=== PATIENT | female | born 1980 | race Caucasian/White ===

== ENCOUNTER 2016-05-01 11:31 | Emergency (ER) | payer BC ==
[~2016-05-01] VITALS: Ht 152.4 cm; Wt 150.1 kg
[~2016-05-01 11:31] MED LIST: ALBUAER2 INH; BENZ100C84 PO; HYDR-5688 PO; METH4PAK4 PO; PRD20 PO
[2016-05-01 11:35] VITALS: TEMP 36.5; Ht 152.4 cm; Wt 150.1 kg
--- NOTE | 2016-05-01 13:03 | DIAGNOSTIC IMAGING REPORT ---
RIGHT ELBOW 3 VIEWS CLINICAL HISTORY: Fall one month ago. Right elbow pain. FINDINGS: 3 views of the right elbow are obtained. No prior studies are available for comparison at the time of dictation. The skeletal structures are well mineralized. No fracture is identified. The joint spaces of the elbow are well-maintained. No joint effusion is identified. The overlying soft tissues are within normal limits. IMPRESSION: Unremarkable radiographic assessment of the right elbow. Electronically signed by: Braulio Lynn M.D. 05/01/2016 1:02 PM Dictated Date/Time: 05/01/2016 1:01 PM
--- NOTE | 2016-05-01 13:05 | DIAGNOSTIC IMAGING REPORT ---
RIGHT SHOULDER MIN 2 VIEWS ROUTINE CLINICAL HISTORY: Right shoulder pain COMPARISON: None. DISCUSSION: No acute fractures or dislocations are visualized. There are degenerative changes within the AC joint. There is a small corticated ossicle adjacent to the superior lateral aspect of the clavicle. There are small corticated bony densities at the inferior margin of the glenohumeral joint. IMPRESSION: No acute fractures or dislocations identified. Electronically signed by: Steve Morel M.D. 05/01/2016 1:03 PM Dictated Date/Time: 05/01/2016 1:02 PM
[2016-05-01 14:02] VITALS: BP 166/101; PULSE 75; O2SAT 98
--- NOTE | 2016-05-01 15:36 | EMERGENCY ROOM VISIT NOTE ---
History First contact with patient: 11:59 Chief Complaint: FOOT PAIN Stated Complaint: PAIN IN BOTTOM OF LT FOOT, RT ARM & SHOULDER PAIN History of Present Illness The patient is a 36 year old female who presents to the Emergency Room with several complaints today. She complains primarily of left foot pain that started yesterday afternoon. The patient reports that she is on her feet all day long at work. She denies any known trauma or injury to the foot. She denies any prior history of chronic foot pain. She does report a history of flat feet. She denies any prior history of plantar fascitis. She currently denies any pain extending into the top of the foot, ankle or leg. She denies any paresthesias or numbness of the left foot or toes. The patient also complains of persistent right elbow and shoulder pain after falling approximately one month ago. Her pain is worsened with movement. She denies any pain extending into the neck or back. She also denies any paresthesias or numbness of the right upper extremity. The patient is right- hand-dominant. She rates this discomfort a 4 out of 10. The patient has not contacted her PCP regarding her current symptoms. Review of Systems 10 system review was performed and was negative except for pertinent positives and negatives as indicated in history of present illness Past Medical/Surgical History Medical Problems: (1) Abdominal wall hernia (2) Abscess of buttock, left (3) Abscess of buttock, left (4) Abscess packing removal (5) Achilles tendonitis, bilateral (6) Acute bronchitis (7) Acute bronchitis (8) Anxiety (9) Bronchitis (10) Bronchitis (11) CALCULUS OF URETER (12) Cough (13) Irritation of eye (14) Left buttock abscess (15) Left otitis externa (16) MORBID OBESITY (17) Otitis media, left (18) Skin problems (19) Strain of left Achilles tendon (20) Vaginal bleeding Surgical Problems: (1) Previous section Family History Diabetes mellitus FH: cancer Hypertension Kidney disease Kidney stones Social History Smoking Status: Current Every Day Smoker Alcohol Use: occasionally Drug Use: none Marital Status: Housing Status: lives with family Occupation Status: employed Current/Historical Medications Scheduled Venlafaxine Hcl (Effexor), 37.5 MG PO DAILY Allergies Coded Allergies: No Known Allergies (Verified , 05/01/16) Physical Exam Vital Signs Date Time Temp Pulse Resp B/P Pulse Ox O2 Delivery O2 Flow Rate FiO2 05/01/16 14:02 75 20 166/101 98 05/01/16 13:55 75 20 166/101 98 Room Air 05/01/16 11:57 147/92 05/01/16 11:35 36.5 79 18 168/117 95 Room Air Physical Exam CONSTITUTIONAL: Morbidly obese female, alert and oriented X 3 with positive affect. HEENT: Normocephalic, atraumatic. Pupils equal, round and reactive. NECK: Full active range of motion without discomfort. Negative lateral gaze test. RESPIRATORY: Clear to auscultation bilaterally with no wheezing, crackles, rhonchi or stridor. CARDIOVASCULAR: Regular rate and rhythm with no murmurs, rubs or gallops. MUSCULOSKELETAL: Examination of the right shoulder shows mild tenderness to the bicipital groove and anterior shoulder region. Gentle range of motion does not worsen her discomfort, and has full passive range of motion. Examination shows discomfort at the lateral elbow with pronation and supination of the forearm. No obvious joint effusion noted. She has full flexion and extension without pain. Distal pulses are intact. Examination of the left foot does not show any soft tissue edema or ecchymosis. She has tenderness to palpation through the lateral plantar fascia. She has no focal tenderness of the calcaneus or Achilles tendon, metatarsals, phalanges or dorsal midfoot. Pedal pulses are intact. Negative logroll bilaterally. Negative sitting straight leg raise bilaterally. INTEGUMENTARY: No rash or other significant dermatologic conditions noted. NEUROLOGIC: No focal neurologic deficits noted. Upper and lower extremities are sensory intact. Medical Decision & Procedures ER Provider Diagnostic Interpretation: My interpretation of right elbow and shoulder x-rays does not show any acute fractures or dislocations. Radiologist reports were also reviewed with concurrence. ED Course Patient history and physical exam were performed. Nurse's notes were reviewed. Initial vital signs were retaken, showing a blood pressure 149/92. X-rays of the right elbow and shoulder were normal. The patient was encouraged to follow-up with orthopedics for further reevaluation and management. The patient was advised that her left foot pain is likely secondary to plantar fascitis. A handout was provided. I did discuss the importance of deep ice massaging and stretching. The patient reports that she wears a flat soled shoe. She was encouraged to wear a shoe with a good arch support, such as a running shoe. Regarding her right elbow and shoulder pain, she was encouraged to intermittently apply ice as needed. Ibuprofen and Tylenol in alternating fashion as needed for additional pain relief. The patient was happy with plan of care, voiced understanding of all discharge instructions, and rated her pain a 4 out of 10 at the time of discharge. Medical Decision Impression Primary Impression: Plantar fasciitis, left Additional Impression: Muscle strain of right upper extremity Departure Information Dispostion Home / Self-Care Referrals Diane Perez D.O. (PCP) Forms HOME CARE DOCUMENTATION FORM, IMPORTANT VISIT INFORMATION Patient Instructions [facility], ED Plantar Fasciitis Problem Qualifiers Additional Impression: Muscle strain of right upper extremity Encounter type: initial encounter Qualified Codes: S46.911A - Strain of unspecified muscle, fascia and tendon at shoulder and upper arm level, right arm , initial encounter
[2016-05-29] MEDS ORDERED: EFF/375 PO (12:22)
== END 2016-05-01 14:06 | disposition home or self-care (01) ==
LOC: C.EDB 11:37 → C.EDD 14:06
DX: M72.2 Plantar fascial fibromatosis (principal); S46.911A Strain of unspecified muscle, fascia and tendon at shoulder and upper arm level, right arm, initial encounter; W19.XXXA Unspecified fall, initial encounter; Z87.442 Personal history of urinary calculi; E66.01 Morbid (severe) obesity due to excess calories; F17.210 Nicotine dependence, cigarettes, uncomplicated; Z79.899 Other long term (current) drug therapy

== ENCOUNTER 2016-05-29 17:26 | Emergency (ER) | payer BC ==
[~2016-05-29] VITALS: Ht 152.4 cm; Wt 149.7 kg
[~2016-05-29 17:26] MED LIST changes: -ALBUAER2 INH; -BENZ100C84 PO; +EFF/375 PO; -HYDR-5688 PO; -METH4PAK4 PO; -PRD20 PO
[2016-05-29 17:43] VITALS: TEMP 36.9; Ht 152.4 cm; Wt 149.7 kg
--- NOTE | 2016-05-29 18:47 | EMERGENCY ROOM VISIT NOTE ---
ED Visit Note First contact with patient: 17:45 CHIEF COMPLAINT: Sore throat HISTORY OF PRESENT ILLNESS: This 36-year-old female patient presents to the emergency department ambulatory complaining of a sore throat. The patient reports that she has had a mild cough, sneezing and a sore throat for the past 2 days. She rates her discomfort a 5/10. She states that the sore throat is worse with swallowing and eating. She denies any fevers. She does report that both of her children have been sick with colds recently. She has not taken any medications at home for her symptoms. She denies neck pain, headache, chest pain, abdominal pain, nausea or vomiting. REVIEW OF SYSTEMS: A review of systems was performed with positives and pertinent negatives listed in the history of present illness. All other systems were reviewed and are negative. ALLERGIES: No known drug allergies MEDICATIONS: Effexor PMH: No significant past medical history. SOCIAL HISTORY: The patient lives locally. She is a smoker. PHYSICAL EXAM: VITALS: Vitals are noted on the nurse's note and reviewed by myself. Vital signs stable. GENERAL: This is a 36-year-old female, in no acute distress, nondiaphoretic, well-developed well-nourished. SKIN: The skin was without rashes. EARS: External auditory canals clear, tympanic membranes pearly vallejo without erythema or effusion bilaterally. EYES: Pupils equal round and reactive to light and accommodation. Conjunctivae without injection, sclerae without icterus. NOSE: Patent, turbinates without inflammation or discharge. No sinus tenderness. MOUTH: Mucous membranes moist. Tonsils are surgically absent. Pharynx without erythema or exudate. NECK: Supple without nuchal rigidity. No lymphadenopathy. No meningismus. HEART: Regular rate and rhythm without murmurs gallops or rubs. LUNGS: Clear to auscultation bilaterally without wheezes, rales or rhonchi. NEURO: Patient was alert and oriented to person place and time. EMERGENCY DEPARTMENT COURSE: The patient was evaluated as above. She appears to have a viral illness. A rapid strep was performed and was negative. Conservative measures were discussed with the patient. She will follow-up with her primary care provider as needed. She verbalized understanding of my assessment and treatment plan and was discharged home in good condition. DIAGNOSIS: Viral illness Problem List Medical Problems: (1) Abdominal wall hernia Status: Chronic (2) Abscess of buttock, left Status: Resolved (3) Abscess of buttock, left Status: Resolved (4) Abscess packing removal Status: Resolved (5) Achilles tendonitis, bilateral Status: Resolved (6) Acute bronchitis Status: Resolved (7) Acute bronchitis Status: Resolved (8) Anxiety Status: Chronic (9) Bronchitis Status: Resolved (10) Bronchitis Status: Resolved (11) CALCULUS OF URETER Status: Resolved (12) Cough Status: Resolved (13) Irritation of eye Status: Resolved (14) Left buttock abscess Status: Resolved (15) Left otitis externa Status: Resolved (16) MORBID OBESITY Status: Chronic (17) Otitis media, left Status: Resolved (18) Skin problems Status: Resolved (19) Strain of left Achilles tendon Status: Resolved (20) Vaginal bleeding Status: Resolved Surgical Problems: (1) Previous section Status: Resolved Current/Historical Medications Scheduled Venlafaxine Hcl (Effexor), 37.5 MG PO DAILY Allergies Coded Allergies: No Known Allergies (Verified , 05/01/16) Vital Signs Date Time Temp Pulse Resp B/P Pulse Ox O2 Delivery O2 Flow Rate FiO2 05/29/16 18:53 64 18 152/97 96 Room Air 05/29/16 17:43 36.9 83 20 140/94 94 Room Air 05/29/16 17:42 96 Room Air Departure Information Impression Primary Impression: Acute pharyngitis Dispostion Home / Self-Care Condition GOOD Referrals Diane Perez D.O. (PCP) Patient Instructions My [facility] Additional Instructions You were seen in the emergency department for your sore throat. The results of your rapid strep screen were found to be negative. You will be contacted in 48- 72 hrs with the results of your pending strep culture. For pain and fever control, you can use the following [id number] medicines (if >12 yo): - Regular strength (325mg/tab) Tylenol (acetaminophen) 2 tabs every 4-6 hours as needed. Do not exceed 12 tablets in a 24 hour period. Avoid taking more than 4 grams (4000 mg) of Tylenol per day. This includes any other sources of acetaminophen you may take on a regular basis. - Regular strength (200 mg/tab) Advil (ibuprofen) 1-2 tabs every 4-6 hours as needed. Do not exceed a dose of 3200 mg per day. - For best results, alternate dosing of Tylenol and Advil. In addition to your prescribed medications, you can also use the following home remedies: - Warm salt-water gargles 3 times per day can soothe your throat and help to fight infection. - Warm tea with honey can soothe your throat. Return to the emergency department if your symptoms persist or worsen over the next 2-3 days despite treatment course outlined above. Return to the emergency department if you develop the following symptoms of: inability to swallow solids , liquids, or drool; excessive wheezing or inability to catch your breath; or intractable fever or pain. Follow up with your primary care provider in 2-3 days from today's emergency department visit. Problem Qualifiers Primary Impression: Acute pharyngitis Pharyngitis/tonsillitis etiology: unspecified etiology Qualified Codes: J02.9 - Acute pharyngitis, unspecified
[2016-05-29 18:53] VITALS: BP 152/97; PULSE 64; O2SAT 96
== END 2016-05-29 18:54 | disposition home or self-care (01) ==
LOC: C.EDB 17:27 → C.EDD 18:54
DX: J02.9 Acute pharyngitis, unspecified (principal); K43.9 Ventral hernia without obstruction or gangrene; F41.9 Anxiety disorder, unspecified; E66.01 Morbid (severe) obesity due to excess calories; Z79.899 Other long term (current) drug therapy; F17.210 Nicotine dependence, cigarettes, uncomplicated

== ENCOUNTER 2016-06-21 18:43 | Emergency (ER) | payer BC ==
[~2016-06-21] VITALS: Ht 152.4 cm; Wt 149.0 kg
[2016-06-21 18:47] VITALS: Ht 152.4 cm; Wt 149.0 kg
[2016-06-21] MEDS ORDERED: SEPTRA DS HOME PACK 1 EA VIAL PO ONE (19:15)
[2016-06-21] MEDS ORDERED: CEPHALEXIN 500MG HOME PACK 1 EA BTL PO ONE (19:15)
[2016-06-21] MEDS ORDERED: SULF800T23 PO (19:16)
[2016-06-21] MEDS ORDERED: CEPH500C PO (19:16)
[2016-06-21 19:24] VITALS: BP 161/93; PULSE 81; TEMP 37; O2SAT 93
--- NOTE | 2016-06-21 20:34 | EMERGENCY ROOM VISIT NOTE ---
History First contact with patient: 18:50 Chief Complaint: WOUND INFECTION Stated Complaint: INFECTED BOIL ON STOMACH Nursing Triage Summary: Pt c/o boil on mid abdomen, began , History of the same, takes antibiotics, it gets better, then it comes back. Draining. History of Present Illness The patient is a 36 year old female who presents to the Emergency Room with complaints of worsening pain and irritation to her abdomen began 4 days ago. The patient has had these symptoms several times over the past year, and typically takes antibiotics with improvement. The patient states that she will have intermittent drainage and discharge, but none at this time. She has not had fever or chills. No chest pain or shortness of breath. The patient is not diabetic by history. She rates her discomfort a 7/10. Review of Systems More than 10 systems were reviewed and otherwise negative with the exception of history of present illness. Past Medical/Surgical History Medical Problems: (1) Abdominal wall hernia (2) Abscess of buttock, left (3) Abscess of buttock, left (4) Abscess packing removal (5) Achilles tendonitis, bilateral (6) Acute bronchitis (7) Acute bronchitis (8) Anxiety (9) Bronchitis (10) Bronchitis (11) CALCULUS OF URETER (12) Cough (13) Irritation of eye (14) Left buttock abscess (15) Left otitis externa (16) MORBID OBESITY (17) Otitis media, left (18) Skin problems (19) Strain of left Achilles tendon (20) Vaginal bleeding Surgical Problems: (1) Previous section Family History Diabetes mellitus FH: cancer Hypertension Kidney disease Kidney stones Social History Smoking Status: Current Every Day Smoker Alcohol Use: occasionally Drug Use: none Marital Status: Housing Status: lives with family Occupation Status: employed Current/Historical Medications Scheduled Cephalexin Monohydrate (Keflex), 500 MG PO TID Sulfamethoxazole-Trimethoprim (Bactrim Ds 800MG/160MG), 1 TAB PO BID Venlafaxine Hcl (Effexor), 37.5 MG PO DAILY Allergies Coded Allergies: No Known Allergies (Verified , 05/01/16) Physical Exam Vital Signs Date Time Temp Pulse Resp B/P Pulse Ox O2 Delivery O2 Flow Rate FiO2 06/21/16 19:24 37.0 81 19 161/93 93 06/21/16 19:22 81 19 161/93 93 Room Air 06/21/16 18:47 37.0 83 19 180/98 93 Room Air Pain Rating (0-10): 6.0 Physical Exam VITALS: Vitals are noted on the nurse's note and reviewed by myself. Vital signs stable. GENERAL: Well-developed, well-nourished, morbidly obese white female, who is in no acute distress and resting comfortably. Patient is cooperative with the examination. HEAD: Normocephalic atraumatic. HEART: Regular rate and rhythm without murmurs gallops or rubs. LUNGS: Clear to auscultation bilaterally without wheezes, rales or rhonchi. No retractions or accessory muscle use. SKIN: Over the inferior aspect of the abdomen under the pannus is a central early skin ulceration with surrounding cellulitis. The ulceration measures approximately 2 x 1 cm in dimension with the surrounding cellulitis additional 3 cm circumferentially. There is no drainage or discharge at this time. No abscess appreciated. This ulceration appears to come into contact with her lower groin. No obvious fungal or yeast component is appreciated. Medical Decision & Procedures Medications Administered Medications (Trade) Dose Ordered Sig/Hussein Route Start Time Stop Time Status Last Admin Dose Admin Trimethoprim/ Sulfamethoxazole (Sulfameth/ Trimeth Ds 800/ 160MG Home Pack) 1 homepack UD ONCE PO 06/21/16 19:15 06/21/16 19:16 DC 06/21/16 19:15 1 HOMEPACK Cephalexin Monohydrate (Keflex 500MG Home Pack) 1 homepack NOW ONCE PO 06/21/16 19:15 06/21/16 19:16 DC 06/21/16 19:15 1 HOMEPACK ED Course Physical exam and history were performed. Nursing notes and EMR were reviewed. Patient appears to have an early skin ulceration with surrounding cellulitis on the lower aspect of her pannus. This will do better with antibiotics, and the patient was started on Bactrim and Keflex here in the department. Considering the patient has had these symptoms off and on for several months, if not the past year, I will refer her to the wound care clinic for further management. She is morbidly obese, and although she states she is not diabetic or have concern this may be contributing to her symptoms. Overall the patient was pleased with this plan and voiced understanding. She rated her discomfort a 6/ 10 at the time of departure. The chart was completed utilizing Dragon Speech Voice Recognition Software. Grammatical errors, random word insertions, pronoun errors, and incomplete sentences are an occasional consequence of this system due to software limitations, ambient noise, and hardware issues. Any formal questions or concerns about the content, text, or information contained within the body of this dictation should be directly addressed to the provider for clarification. . Medical Decision Differential diagnosis: Etiologies such as cellulitis, abscess, MRSA infection, DVT, necrotizing fasciitis, dermatitis, drug eruption, as well as others were entertained.. Impression Primary Impression: Skin ulceration Additional Impression: Cellulitis Departure Information Dispostion Home / Self-Care Condition GOOD Prescriptions Cephalexin Monohydrate (Keflex) 500 Mg Cap 500 MG PO TID for 9 Days, #27 CAP Prov: Mg Lorenzana PA-C 06/21/16 Sulfamethoxazole-Trimethoprim (Bactrim Ds 800MG/160MG) 1 Tab Tab 1 TAB PO BID for 9 Days, #18 TAB Prov: Mg Lorenzana PA-C 06/21/16 Forms HOME CARE DOCUMENTATION FORM, IMPORTANT VISIT INFORMATION Patient Instructions My [facility] Additional Instructions You were seen and evaluated today on an emergency basis only. This is not a substitute for, or an effort to provide, complete comprehensive medical care. It is not possible to recognize and treat all injuries or illnesses in a single emergency department visit. For this reason it is recommended that you followup with [facility] wound care clinic for ongoing care and evaluation. You appeared to have a pressure ulceration with surrounding cellulitis. Trimethoprim-Sulfamethoxazole(Bactrim DS): Take one pill twice daily for 10 days for your skin infection. All antibiotics can cause diarrhea. If this occurs and you feel worse or it does not resolve in 1-2 days follow up with your doctor or return to the Emergency Department as this could be signs of serious underlying problems. Any medication can cause an allergic reaction, stop the pills immediately and return to the ER for rash, hives, breathing difficulties, or swelling. Cephalexin(Keflex) 500mg: Take one pill 3 times daily for 10 days for your skin infection. All antibiotics can cause diarrhea. If this occurs and you feel worse or it does not resolve in 1-2 days follow up with your doctor or return to the Emergency Department as this could be signs of serious underlying problems. Any medication can cause an allergic reaction, stop the pills immediately and return to the ER for rash, hives, breathing difficulties, or swelling. You are welcome to return to the emergency department anytime with new, worsening, or concerning symptoms. Problem Qualifiers
== END 2016-06-21 19:25 | disposition home or self-care (01) ==
LOC: C.EDB 18:45 → C.EDD 19:25
DX: L98.499 Non-pressure chronic ulcer of skin of other sites with unspecified severity (principal); L03.311 Cellulitis of abdominal wall; E66.01 Morbid (severe) obesity due to excess calories; Z68.44 Body mass index [BMI] 60.0-69.9, adult; F41.9 Anxiety disorder, unspecified; F17.200 Nicotine dependence, unspecified, uncomplicated; Z79.899 Other long term (current) drug therapy; Z83.3 Family history of diabetes mellitus; Z82.49 Family history of ischemic heart disease and other diseases of the circulatory system; Z84.1 Family history of disorders of kidney and ureter

== ENCOUNTER 2016-09-30 13:20 | Emergency (ER) | payer BC ==
[~2016-09-30] VITALS: Ht 152.4 cm; Wt 150.0 kg
[2016-09-30 13:24] VITALS: TEMP 36.7; Ht 152.4 cm; Wt 150.0 kg
--- NOTE | 2016-09-30 13:59 | EMERGENCY ROOM VISIT NOTE ---
History Report prepared by Miguel Ángel: Fan Bee Under the Supervision of: Dr. Karina Reyes D.O. First contact with patient: 13:34 Chief Complaint: CARDIAC ASSESSMENT Stated Complaint: CHEST PAIN, NUMBNESS IN LEFT ARM AND CHEST Nursing Triage Summary: pt to the ED with chest and back pain mostly when she breathes with numbness across chest and left arm and "I kept falling over" yesterday feeling "off balance" has a hx of HTN that is recent History of Present Illness The patient is a 36 year old female who presents to the Emergency Room with complaints of constant chest pain since yesterday. The pain is worse with breathing and is also felt in her back / shoulder area. Today the patient started to experience numbness radiating down the left arm. The left arm also feels heavy. The patient notes that the chest and epigastric area is sore when she pushes on it. The patient was feeling very off balance yesterday. She has had intermittent vomiting for the past month. The patient denies cough or cold symptoms, bowel problems, urinary symptoms, or changes in her menstrual cycle. She denies recent travel or strenuous activity. She only takes Effexor, and has not changed the dosage recently. The patient denies any medical problems. She is a smoker. The patient has a family history of heart disease with unknown age of onset. Source of History: patient Onset: yesterday Position: chest Timing: constant Modifying Factors (Worsening): breathing Associated Symptoms: + vomiting, + back pain, + numbness, No cough, No urinary symptoms Review of Systems See HPI for pertinent positives & negatives. A total of 10 systems reviewed and were otherwise negative. Past Medical & Surgical Medical Problems: (1) Abdominal wall hernia (2) Abscess of buttock, left (3) Abscess of buttock, left (4) Abscess packing removal (5) Achilles tendonitis, bilateral (6) Acute bronchitis (7) Acute bronchitis (8) Anxiety (9) Bronchitis (10) Bronchitis (11) CALCULUS OF URETER (12) Cough (13) Irritation of eye (14) Left buttock abscess (15) Left otitis externa (16) MORBID OBESITY (17) Otitis media, left (18) Skin problems (19) Strain of left Achilles tendon (20) Vaginal bleeding Surgical Problems: (1) Previous section Family History Diabetes mellitus FH: cancer Hypertension Kidney disease Kidney stones Social History Smoking Status: Current Every Day Smoker Alcohol Use: occasionally Drug Use: none Marital Status: Housing Status: lives with family Occupation Status: employed Current/Historical Medications Scheduled Venlafaxine Hcl (Effexor), 37.5 MG PO DAILY Allergies Coded Allergies: No Known Allergies (Verified , 09/30/16) Physical Exam Vital Signs Date Time Temp Pulse Resp B/P (MAP) Pulse Ox O2 Delivery O2 Flow Rate FiO2 09/30/16 19:15 76 18 141/76 98 09/30/16 17:19 65 20 143/72 96 Room Air 09/30/16 16:13 63 22 133/83 95 Room Air 09/30/16 13:56 74 09/30/16 13:24 36.7 80 16 191/115 95 Room Air Physical Exam GENERAL: alert, well appearing, well nourished, no distress, non-toxic EYE EXAM: normal conjunctiva. OROPHARYNX: no exudate, no erythema, lips, buccal mucosa, and tongue normal and mucous membranes are moist NECK: supple, no nuchal rigidity, no adenopathy, non-tender LUNGS: Clear to auscultation. Normal chest wall mechanics HEART: no murmurs, S1 normal and S2 normal CHEST: Mildly reproducible let costal margin tenderness. ABDOMEN: morbidly obese, soft, non-tender. BACK: Back is symmetrical on inspection and there is no deformity, no midline tenderness, no CVA tenderness. SKIN: no rashes and no bruising UPPER EXTREMITIES: upper extremities are grossly normal. LOWER EXTREMITIES: No pitting edema. NEURO EXAM: Normal sensorium, cranial nerves II-XII grossly intact, normal speech, no gross weakness of arms, no gross weakness of legs. Gross sensation intact. Medical Decision & Procedures ER Provider Diagnostic Interpretation: Radiology results have been interpreted by the radiologist and reviewed by me. CHEST 2 VIEWS ROUTINE CLINICAL HISTORY: chest pain dyspnea COMPARISON STUDY: 12/28/2015 FINDINGS: The bones soft tissues and hemidiaphragms are normal. The cardiomediastinal silhouette is normal. The lungs are clear. The pulmonary vasculature is normal. IMPRESSION: Negative chest. Electronically signed by: Jacoby Tejeda M.D. 09/30/2016 3:10 PM Dictated Date/Time: 09/30/2016 3:[address] ANGIOGRAM OF THE CHEST CLINICAL HISTORY: Atypical chest pain. Elevated d-dimer. Left arm numbness. COMPARISON STUDY: 12/28/2015 TECHNIQUE: Following the IV administration of 87 mL of Optiray-320, CT angiogram of the thorax was performed from the thoracic inlet to the lung bases utilizing the pulmonary embolus protocol. Images are reviewed in the axial, sagittal, and coronal planes. IV contrast was administered without complication. MIP imaging was performed. CT DOSE: 658.17 mGy.cm FINDINGS: There is hepatic steatosis. No pathologically enlarged axillary mediastinal or hilar lymph nodes were visualized. There was no evidence of thoracic aortic dilatation. Pulmonary arterial opacification is somewhat limited due to the patient's large body habitus. No central emboli are visualized. No pleural effusions are visualized. There was no evidence of focal pulmonary consolidation. IMPRESSION: 1. Technically limited study secondary to the patient's large body habitus 2. No evidence of central pulmonary emboli 3. No evidence of focal pulmonary consolidation Electronically signed by: Steve Morel M.D. 09/30/2016 3:30 PM Dictated Date/Time: 09/30/2016 3:27 PM Laboratory Results 09/30/16 14:15 Red Blood Count 4.47, Mean Corpuscular Volume 90.4, Mean Corpuscular Hemoglobin 30.4, Mean Corpuscular Hemoglobin Concent 33.7, Mean Platelet Volume 11.2, Neutrophils (%) (Auto) 63.0, Lymphocytes (%) (Auto) 29.6, Monocytes (%) (Auto) 5.0, Eosinophils (%) (Auto) 1.6, Basophils (%) (Auto) 0.4, Neutrophils # (Auto) 7.35, Lymphocytes # (Auto) 3.46, Monocytes # (Auto) 0.58, Eosinophils # (Auto) 0.19, Basophils # (Auto) 0.05 09/30/16 14:15 Test 09/30/16 14:15 09/30/16 18:05 White Blood Count 11.68 K/uL (4.8-10.8) Red Blood Count 4.47 M/uL (4.2-5.4) Hemoglobin 13.6 g/dL (12.0-16.0) Hematocrit 40.4 % (37-47) Mean Corpuscular Volume 90.4 fL (80-100) Mean Corpuscular Hemoglobin 30.4 pg (25-34) Mean Corpuscular Hemoglobin Concent 33.7 g/dl (32-36) Platelet Count 193 K/uL (130-400) Mean Platelet Volume 11.2 fL (7.4-10.4) Neutrophils (%) (Auto) 63.0 % Lymphocytes (%) (Auto) 29.6 % Monocytes (%) (Auto) 5.0 % Eosinophils (%) (Auto) 1.6 % Basophils (%) (Auto) 0.4 % Neutrophils # (Auto) 7.35 K/uL (1.4-6.5) Lymphocytes # (Auto) 3.46 K/uL (1.2-3.4) Monocytes # (Auto) 0.58 K/uL (0.11-0.59) Eosinophils # (Auto) 0.19 K/uL (0-0.5) Basophils # (Auto) 0.05 K/uL (0-0.2) RDW Standard Deviation 41.9 fL (36.4-46.3) RDW Coefficient of Variation 12.6 % (11.5-14.5) Immature Granulocyte % (Auto) 0.4 % Immature Granulocyte # (Auto) 0.05 K/uL (0.00-0.02) D-Dimer 650 ug/L FEU (0-500) Anion Gap 8.0 mmol/L (3-11) Est Creatinine Clear Calc Drug Dose 140.5 ml/min Estimated GFR () 115.9 Estimated GFR (Non- 100.0 BUN/Creatinine Ratio 15.8 (10-20) Calcium Level 8.6 mg/dl (8.5-10.1) Magnesium Level 1.8 mg/dl (1.8-2.4) Total Bilirubin 0.2 mg/dl (0.2-1) Aspartate Amino Transf (AST/SGOT) 26 U/L (15-37) Alanine Aminotransferase (ALT/SGPT) 39 U/L (12-78) Alkaline Phosphatase 105 U/L (45-117) Total Protein 6.9 gm/dl (6.4-8.2) Albumin 2.9 gm/dl (3.4-5.0) Globulin 4.0 gm/dl (2.5-4.0) Albumin/Globulin Ratio 0.7 (0.9-2) Thyroid Stimulating Hormone (TSH) 2.030 uIu/ml (0.300-4.500) Troponin I < 0.015 ng/ml (0-0.045) Laboratory results per my review. Medications Administered Medications (Trade) Dose Ordered Sig/Hussein Route Start Time Stop Time Status Last Admin Dose Admin Al Hydroxide/Mg Hydroxide (Maalox Susp) 30 ml NOW STAT PO 09/30/16 15:55 09/30/16 15:56 DC 09/30/16 16:11 30 ML Ketorolac Tromethamine (Toradol Inj) 30 mg NOW STAT IV 09/30/16 15:55 09/30/16 15:56 DC 09/30/16 16:11 30 MG Lorazepam (Ativan Inj) 0.5 mg NOW STAT IV 09/30/16 16:41 09/30/16 16:42 DC 09/30/16 17:19 0.5 MG Famotidine (Pepcid Tab) 20 mg NOW ONCE PO 09/30/16 19:00 09/30/16 19:01 DC 09/30/16 19:14 20 MG Acetaminophen (Tylenol Tab) 1,000 mg NOW STAT PO 09/30/16 18:54 09/30/16 18:55 DC 09/30/16 19:14 1,000 MG ECG Indication: chest pain Rate (beats per minute): 67 Rhythm: normal sinus Findings: no acute ischemic change, no ectopy, other (normal axis, normal intervals) ED Course 1350: The patient was evaluated in room B9. A complete history and physical exam was performed. 1555: Toradol 30 mg IV, Maalox 30 ml PO. 1630: The patient is still having pain but feels somewhat better. Updated her on the results. 1641: Ativan 0.5 mg IV. 1840: Reassessed the patient. Discussed the workup. 1854: Tylenol 1000 mg PO. 1900: Pepcid 20 mg PO. Medical Decision Differential diagnoses includes but is not limited to acute coronary syndrome, myocardial infarction, pericarditis, pulmonary embolus, aortic dissection, pneumonia, pneumothorax, musculoskeletal, shingles, esophageal perf, gerd, tamponade, effusion. Medication Reconciliation: I attest that I have personally reviewed the patient' s current medication list. Blood pressure screening: Patient was found to have an elevated blood pressure and was referred to their primary doctor for recheck and further treatment. HEART score 1 Unclear etiology of pain, no acute lab/imaging abnormalities noted. Pt well appearing here despite complaints. VS stable. Discussed f/u with pt, sx to watch/return for, she verbalized understanding and was agreeable with plan. First blood pressure likely an error due to body habitus and appropriate cuff size. Impression Primary Impression: Chest pain Additional Impression: Obesity Scribe Attestation The scribe's documentation has been prepared under my direction and personally reviewed by me in its entirety. I confirm that the note above accurately reflects all work, treatment, procedures, and medical decision making performed by me. Departure Information Dispostion Home / Self-Care Referrals Diane Perez D.O. (PCP) Forms IMPORTANT VISIT INFORMATION, Work Instructions Patient Instructions My [facility] Additional Instructions Please: Follow up with her family doctor. Please avoid any heavy lifting or strenuous activity until you're feeling better. If you have any worsening pain , trouble breathing, dizziness, fevers, vomiting, or you have any other new or concerning symptoms, please return the emergency room. Problem Qualifiers Primary Impression: Chest pain Chest pain type: unspecified Qualified Codes: R07.9 - Chest pain, unspecified Additional Impression: Obesity Obesity type: due to excess calories Obesity severity: morbid Qualified Codes: E66.01 - Morbid (severe) obesity due to excess calories
[2016-09-30 14:24] LABS: BASO % 0.4 %; BASO ABS # 0.05 K/uL (0-0.2); COMPLETE YES; EOS % 1.6 %; HEMATOCRIT 40.4 % (37-47); IG% 0.4 %; LYMPH % 29.6 %; LYMPH ABS # 3.46 K/uL (1.2-3.4); MEAN CELL VOLUME 90.4 fL (80-100); MEAN CORPUSCULAR HEMOGLOBIN 30.4 pg (25-34); MEAN CORPUSCULAR HGB CONC 33.7 g/dl (32-36); MEAN PLATELET VOLUME 11.2 fL (7.4-10.4); PLATELET COUNT 193 K/uL (130-400); RED BLOOD COUNT 4.47 M/uL (4.2-5.4); WHITE BLOOD COUNT 11.68 K/uL (4.8-10.8)
[2016-09-30 14:42] LABS: ALT/SGPT 39 U/L (12-78); AST/SGOT 26 U/L (15-37); BLOOD UREA NITROGEN 12 mg/dl (7-18); BUN/CREATININE RATIO 15.8 (10-20); CALCIUM 8.6 mg/dl (8.5-10.1); CARBON DIOXIDE 27 mmol/L (21-32); CHLORIDE 105 mmol/L (98-107); CREATININE 0.77 mg/dl (0.60-1.20); GLUCOSE 164 mg/dl (70-99); MAGNESIUM 1.8 mg/dl (1.8-2.4); SODIUM 140 mmol/L (136-145)
[2016-09-30 14:52] LABS: ALB/GLOB RATIO 0.7 (0.9-2); ALKALINE PHOSPHATASE 105 U/L (45-117)
[2016-09-30] MEDS ORDERED: OPTIRAY 320 IV PRN (15:00)
--- NOTE | 2016-09-30 15:11 | DIAGNOSTIC IMAGING REPORT ---
CHEST 2 VIEWS ROUTINE CLINICAL HISTORY: chest pain dyspnea COMPARISON STUDY: 12/28/2015 FINDINGS: The bones soft tissues and hemidiaphragms are normal. The cardiomediastinal silhouette is normal. The lungs are clear. The pulmonary vasculature is normal. IMPRESSION: Negative chest. Electronically signed by: Jacoby Tejeda M.D. 09/30/2016 3:10 PM Dictated Date/Time: 09/30/2016 3:09 PM
--- NOTE | 2016-09-30 15:32 | DIAGNOSTIC IMAGING REPORT ---
CT ANGIOGRAM OF THE CHEST CLINICAL HISTORY: Atypical chest pain. Elevated d-dimer. Left arm numbness. COMPARISON STUDY: 12/28/2015 TECHNIQUE: Following the IV administration of 87 mL of Optiray-320, CT angiogram of the thorax was performed from the thoracic inlet to the lung bases utilizing the pulmonary embolus protocol. Images are reviewed in the axial, sagittal, and coronal planes. IV contrast was administered without complication. MIP imaging was performed. CT DOSE: 658.17 mGy.cm FINDINGS: There is hepatic steatosis. No pathologically enlarged axillary mediastinal or hilar lymph nodes were visualized. There was no evidence of thoracic aortic dilatation. Pulmonary arterial opacification is somewhat limited due to the patient's large body habitus. No central emboli are visualized. No pleural effusions are visualized. There was no evidence of focal pulmonary consolidation. IMPRESSION: 1. Technically limited study secondary to the patient's large body habitus 2. No evidence of central pulmonary emboli 3. No evidence of focal pulmonary consolidation Electronically signed by: Steve Morel M.D. 09/30/2016 3:30 PM Dictated Date/Time: 09/30/2016 3:27 PM
[2016-09-30] MEDS ORDERED: ALUMINUM/MAGNESIUM SUSP 30 ML UDC PO STA (15:55)
[2016-09-30] MEDS ORDERED: KETOROLAC TROMETHAMINE 30 MG/ML VIAL IV STA (15:55)
[2016-09-30] MEDS ORDERED: LORAZEPAM 2 MG/ML 1 ML VIAL IV STA (16:41)
[2016-09-30] MEDS ORDERED: ACETAMINOPHEN 500 MG TAB PO STA (18:54)
[2016-09-30] MEDS ORDERED: FAMOTIDINE 20 MG TAB PO ONE (19:00)
[2016-09-30 19:15] VITALS: BP 141/76; PULSE 76; O2SAT 98
[2017-02-18] MEDS ORDERED: GLC500 PO (12:30)
== END 2016-09-30 19:16 | disposition home or self-care (01) ==
LOC: C.EDB 13:22
DX: R07.9 Chest pain, unspecified (principal); I10 Essential (primary) hypertension; R20.0 Anesthesia of skin; F17.210 Nicotine dependence, cigarettes, uncomplicated; Z82.49 Family history of ischemic heart disease and other diseases of the circulatory system; E66.01 Morbid (severe) obesity due to excess calories

== ENCOUNTER 2016-12-09 17:11 | Emergency (ER) | payer BC ==
[~2016-12-09] VITALS: Ht 152.4 cm; Wt 149.0 kg
[2016-12-09 17:22] VITALS: BP 146/101; PULSE 86; TEMP 36.5; O2SAT 98; Ht 152.4 cm; Wt 149.0 kg
[2016-12-09] MEDS ORDERED: CYCL5TAB PO (17:35)
[2016-12-09] MEDS ORDERED: HYDR-5688 PO (17:35)
--- NOTE | 2016-12-09 17:37 | EMERGENCY ROOM VISIT NOTE ---
History First contact with patient: 17:25 Chief Complaint: BACK PAIN Stated Complaint: PAIN RIGHT SIDE OF BACK History of Present Illness The patient is a 36 year old female who presents to the Emergency Room via private vehicle accompanied by male with complaints of "back pain". 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 She states that she reached forward with her right arm to retract the seatbelt she felt a pulling sensation just below her right shoulder blade. She rates the current pain as a 6/10. She denies any shortness of breath, chest pain, numbness or tingling in the extremities. She hasn't taken any for pain thus far. Review of Systems A complete 10-point Review of Systems was discussed with the patient, with pertinent positives and negatives listed in the History of Present Illness. All remaining Review of Systems questions can be considered negative unless otherwise specified. Past Medical/Surgical History Medical Problems: (1) Abdominal wall hernia (2) Abscess of buttock, left (3) Abscess of buttock, left (4) Abscess packing removal (5) Achilles tendonitis, bilateral (6) Acute bronchitis (7) Acute bronchitis (8) Anxiety (9) Bronchitis (10) Bronchitis (11) CALCULUS OF URETER (12) Cough (13) Irritation of eye (14) Left buttock abscess (15) Left otitis externa (16) MORBID OBESITY (17) Otitis media, left (18) Skin problems (19) Strain of left Achilles tendon (20) Vaginal bleeding Surgical Problems: (1) Previous section Family History Diabetes mellitus FH: cancer Hypertension Kidney disease Kidney stones Social History Smoking Status: Current Every Day Smoker Alcohol Use: occasionally Drug Use: none Marital Status: Housing Status: lives with family Occupation Status: employed Current/Historical Medications Scheduled Venlafaxine Hcl (Venlafaxine Extended Rel), 37.5 MG PO DAILY Scheduled PRN Cyclobenzaprine Hcl (Flexeril), 1 TAB PO TID PRN for Muscle Spasms Hydrocodone/Acetaminophen 5MG/325MG ([place] 5MG/325MG), 1-2 TABLET PO Q6 PRN for Pain Physical Exam Vital Signs Date Time Temp Pulse Resp B/P (MAP) Pulse Ox O2 Delivery O2 Flow Rate FiO2 12/09/16 17:22 36.5 86 16 146/101 98 Room Air Physical Exam VITAL SIGNS - Vital signs and nursing notes were reviewed. Stable. GENERAL -36-year-old female appearing her stated age who is in no acute distress. Communicates well with provider and answers questions appropriately. SKIN - Without rashes. No petechial rashes. HEAD - NC/AT. NECK - Neck with FROM. Supple to palpation. no lymphadenopathy noted. No nuchal rigidity. LUNGS - Chest wall symmetric without accessory muscle use, intercostals retractions, or central cyanosis. Normal vesicular breath sounds CTA B/L. No wheezes, rales, or rhonchi appreciated. CARDIAC - RRR with S1/S2. No murmur, rubs, or gallops appreciated. ABDOMEN - Abdominal contour without pulsations or visible masses. BS normoactive all four quadrants. No tenderness, palpable masses, hepatosplenomegaly, or ascites noted. EXTREMITIES - No clubbing or peripheral cyanosis. No pretibial edema present. +5 /5 strength noted in UE/LE bilaterally. There is tenderness along the distribution of the inferior trapezius muscle inferior to that of the right scapular region. NEUROLOGIC - Cranial nerves II through XII grossly intact. Sensory intact to light touch throughout. PSYCH - Pt is very pleasant and interacts well with examiner. Medical Decision & Procedures Medical Decision Patient was seen and evaluated as above. She presents to us today with reproducible right inferior scapular tenderness. There is no bony tenderness. The tenderness is that over the inferior trapezius muscle. No evidence of need for x-ray. There is been no trauma to the area. Her history and physical examination are consistent with that of a muscle strain. She'll be treated conservatively with Flexeril and [place]. She is to return if worsening. She is to follow up with her workman's compensation individual. She was educated upon worrisome symptoms which to return, had questions or discharge, and was discharged home in good condition. In evaluation treatment this patient following differential diagnoses entertained: Trapezius muscle strain, fracture, dislocation, among others. [place] Drug Monitoring Program Search Results: patient reviewed within database, no issues identified Impression Primary Impression: Strain of right trapezius muscle Departure Information Dispostion Home / Self-Care Condition GOOD Prescriptions Cyclobenzaprine Hcl (FLEXERIL) 5 Mg Tab 1 TAB PO TID Y for Muscle Spasms for 10 Days, #30 TAB Prov: Surya PimentelFERNANDO 12/09/16 Hydrocodone/Acetaminophen 5MG/325MG (Racine 5MG/325MG) Tab 1-2 TABLET PO Q6 Y for Pain, #15 TAB For Initial Treatment Prov: Surya Pimentel PA-C 12/09/16 Referrals Diane Perez D.O. (PCP) Patient Instructions My [facility] Additional Instructions You have been treated in the Emergency Department for Back Pain. You have been prescribed NORCO to be used for pain control. This is a narcotic medication. You cannot drive or consume alcohol while on this medicine. This medicine should only be used for pain that cannot be controlled with over-the- counter pain medicines. NOT WITH TYLENOL IT ALREADY CONTAINS IT You have been prescribed Flexeril (cyclobenzaprine) 1 tabs orally, three times per day. Do NOT exceed 30 mg (6 tabs) per day. Take your first dose at bedtime as it can make you drowsy. Always take all medications as prescribed. For pain control, you can use the following [id number] medicines: - Regular strength (200 mg/tab) Advil (ibuprofen) 1-2 tabs every 4-6 hours as needed. Do not exceed a dose of 3200 mg per day. If this is an acute injury, ice can be applied to the area of pain for the first 3 days to help decrease pain and inflammation. After the first 3 days, a heating pad can be used over the area for continued soothing relief. You should schedule a follow-up appointment in 2-3 days with your Primary Care Provider for further evaluation and treatment of your back pain. (Please call your employer to discuss approved follow up physician) Return to the Emergency Department if your current symptoms worsen despite treatment course outlined above, or if you develop any of the following symptoms : intractable pain despite aforementioned treatment course, loss of control of your bowel or bladder, numbness or tingling in your groin, or development of a fever. Please return to the emergency department with new/concerning symptoms.
[2016-12-09] MEDS ORDERED: VENL37.593 PO (17:44)
== END 2016-12-09 17:48 | disposition home or self-care (01) ==
LOC: C.EDB 17:13 → C.EDD 17:48
DX: S46.911A Strain of unspecified muscle, fascia and tendon at shoulder and upper arm level, right arm, initial encounter (principal); X50.1XXA Overexertion from prolonged static or awkward postures, initial encounter; Y92.89 Other specified places as the place of occurrence of the external cause; Y99.0 Civilian activity done for income or pay; F41.9 Anxiety disorder, unspecified; Z87.442 Personal history of urinary calculi; E66.01 Morbid (severe) obesity due to excess calories; Z83.3 Family history of diabetes mellitus; Z80.9 Family history of malignant neoplasm, unspecified; Z82.49 Family history of ischemic heart disease and other diseases of the circulatory system; Z84.1 Family history of disorders of kidney and ureter; F17.210 Nicotine dependence, cigarettes, uncomplicated; Z79.899 Other long term (current) drug therapy

== ENCOUNTER 2016-12-28 07:08 | Emergency (ER) | payer BC ==
[~2016-12-28] VITALS: Ht 152.4 cm; Wt 146.0 kg
[~2016-12-28 07:08] MED LIST changes: -EFF/375 PO; +HYDR-5688 PO; +VENL37.593 PO
[2016-12-28 07:11] VITALS: TEMP 36.4; Ht 152.4 cm; Wt 146.0 kg
[2016-12-28] MEDS ORDERED: ALBUT/IPRATROP 3MG/0.5MG NEB 3 ML VIAL INH STA (07:28)
[2016-12-28] MEDS ORDERED: METHYLPREDNISOLONE 125 MG VIAL IV STA (07:28)
[2016-12-28] MEDS ORDERED: SODIUM CHLORIDE 0.9% 1000ML 1,000 ML IV STA ×2 (07:28)
[2016-12-28 07:44] VITALS: PULSE 70; O2SAT 95
[2016-12-28 07:59] LABS: HEMATOCRIT 43.8 % (37-47); MEAN CELL VOLUME 89.6 fL (80-100); MEAN CORPUSCULAR HEMOGLOBIN 31.3 pg (25-34); MEAN CORPUSCULAR HGB CONC 34.9 g/dl (32-36); MEAN PLATELET VOLUME 10.8 fL (7.4-10.4); PLATELET COUNT 237 K/uL (130-400); RED BLOOD COUNT 4.89 M/uL (4.2-5.4); WHITE BLOOD COUNT 17.77 K/uL (4.8-10.8)
[2016-12-28 08:15] LABS: BUN/CREATININE RATIO 25.9 (10-20); CREATININE 0.75 mg/dl (0.60-1.20); MAGNESIUM 1.8 mg/dl (1.8-2.4); POTASSIUM 3.5 mmol/L (3.5-5.1)
[2016-12-28 08:25] LABS: PREG INTERNAL NEGATIVE QC NEG CLEAR BACKGROUND; PREG INTERNAL POSITIVE QC POS CONTROL LINE
[2016-12-28] MEDS ORDERED: OPTIRAY 320 IV PRN (08:30)
[2016-12-28] MEDS ORDERED: DOXY100C76 PO (08:43)
[2016-12-28 09:03] LABS: BASO % 0.3 %; BASO ABS # 0.05 K/uL (0-0.2); COMPLETE YES; EOS % 1.3 %; LYMPH % 40.5 %; LYMPH ABS # 7.19 K/uL (1.2-3.4); MONO % 6.1 %; NEUT % 49.8 %
--- NOTE | 2016-12-28 09:14 | DIAGNOSTIC IMAGING REPORT ---
(CHEST FOR PE) ANGIO WITH CLINICAL HISTORY: 36 years-old Female presenting with cough, shortness of breath, wheezing, elevated d-dimer. TECHNIQUE: Multidetector CT angiography of the chest was performed after administration of intravenous contrast. 3-D volumetric and/or maximum intensity projection (MIP) images were subsequently reconstructed for review. IV contrast: 95 mL of Optiray 320. A dose lowering technique was used consistent with the principles of ALARA (as low as reasonably achievable). COMPARISON: 09/30/2016. CT DOSE (mGy.cm): The estimated cumulative dose is 562.84 mGy.cm. 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 Pulmonary vasculature: The study is limited due to delayed phase of contrast with majority of contrast in the left heart and aorta. No central filling defect within the main, right, or left pulmonary arteries. Lobar and distal pulmonary arteries poorly assessed due to delayed phase of contrast. Main pulmonary artery is not enlarged. No flattening of the interventricular septum. No intracardiac intracardiac filling defect. Remaining chest: On soft tissue windows, normal thyroid and thoracic inlet. No axillary, supraclavicular, hilar, or mediastinal lymphadenopathy. Normal aorta. Normal heart size. Trace pericardial effusion. No pleural effusion. Liver density suggests hepatic steatosis. On lung windows, minimal dependent changes at the right lung base likely atelectasis. No other focal infiltrate. Airways patent. On bone windows, degenerative changes of the spine. IMPRESSION: 1. Significantly degraded examination secondary to timing of contrast bolus. No central filling defect within the main, right, or left pulmonary arteries. If there is continuing clinical concern for pulmonary embolus, repeat CTA chest is recommended given the limited diagnostic sensitivity of this exam. 2. No acute intrathoracic pathology. 3. Hepatic steatosis. Electronically signed by: Giovanni Walsh M.D. 12/28/2016 9:13 AM Dictated Date/Time: 12/28/2016 9:07 AM
--- NOTE | 2016-12-28 10:54 | EMERGENCY ROOM VISIT NOTE ---
ED Visit Note First contact with patient: 07:15 CHIEF COMPLAINT: Cough, wheezing and shortness of breath 1 week HISTORY OF PRESENT ILLNESS: Patient is a 36-year-old white female who presents emergency department for evaluation of an upper respiratory illness started a few days ago. She states that she developed a cold last Thursday, with sinus congestion, sore throat, ear pain and subjective fever and chills. She started using Mucinex for her symptoms. She was seen one week ago had a [facility] facility. She was given a breathing treatment in the office and prescribed prednisone and Tessalon. Her symptoms persisted through the week. She has an albuterol inhaler which she has been using. She has been taking ranitidine due to the GI upset from the prednisone. She was seen by her PCP on Thursday, 2 days ago. She was given a breathing treatment in the office, a steroid injection and started on doxycycline. She has had 4 doses of the doxycycline. Her symptoms are worsening. She reports constant, scantly productive cough, wheezing and shortness of breath. She now feels dizzy and lightheaded. Her ribs and her chest are sore from coughing. She has not had any further fevers. She is a smoker, generally smokes one pack per day, has not been smoking that much in the last week because she has been ill. REVIEW OF SYSTEMS: Review of systems as per HPI. All other systems reviewed were negative. 10 systems reviewed. PMH: Electronic medical records are reviewed and summarized as above/below. See Problem List. SOCIAL HISTORY: Patient lives at home with her . Smoker, she is employed. PHYSICAL EXAM: Vital Signs: Reviewed Nurse's notes. MENTAL STATUS: Patient is a morbidly obese 36-year-old white female who is awake and alert and in moderate distress due to her wheezing and shortness of breath. Temperature 36.4C orally, respiratory rate 24 and labored, oxygen saturation 97% on room air. She is hypotensive with a blood pressure 173/100 HEAD: Atraumatic, without temporal or scalp tenderness. EYES: PERRL, EOMI, no discharge or injection. EARS: Tympanic membranes intact, not inflamed, have normal contour. External canals clear. NOSE: Nares patent, turbinates edematous and boggy with clear rhinorrhea. MOUTH: Mucous membranes moist, no lesions, tongue and gums appear normal. THROAT: No pharyngeal injection, exudates, or tonsillar hypertrophy. Airway is patent. NECK: Supple, nontender, no lymphadenopathy. HEART: Regular rate and rhythm without murmurs, ectopy, gallops, or rubs. LUNGS: Breath sounds are diminished to auscultation bilaterally, throughout with inspiratory and expiratory wheezes. No accessory muscle use or retractions , however the patient is unable to speak in full sentences. She gets short of breath with minimal exertion around the exam room. SKIN: Normal. NEUROLOGICAL: Sensory and motor functions grossly intact. Normal gait. EMERGENCY DEPARTMENT COURSE: The patient was seen and evaluated as above. Her old records are reviewed. On exam, she has a persistent, dry, productive cough. IV lock was initiated. Laboratory studies were collected including serum hCG CBC with differential, BMP, mag, and [id number] d-dimer. The patient was hydrated with normal saline solution. She was medicated with Solu- Medrol 125 mg IV and given an hour-long DuoNeb. Patient's white count is elevated at 17,700, likely related to her recent prednisone therapy. H&H is normal. Electrolytes are within normal limits. Renal functions are unremarkable. Mag is within normal limits, test is negative. D-dimer was elevated. Initially chest x-ray had been ordered, however this was canceled as chest CT was obtained. Study was suboptimal due to timing of the contrast, however there was no obvious pulmonary emboli, and of greater concern, no evidence for consolidation or infiltrate. The patient was reassessed. While sleeping in the exam room, the patient's sats would drop to the upper 80s, low 90s. When she was awake, sats on room air were adequate. Patient and her spouse in both admit to episodes of snoring and suspected apnea when sleeping, which I suspect may be contributing to this, in addition to her upper respiratory illness. Patient was ambulated in the department and maintained a pulse ox of 96%. Treatment options were discussed with the patient at length. She has been on appropriate therapy including bronchodilators, prednisone and doxycycline for 48 hours, and does not feel that her symptoms are improving. She was offered admission, versus continued care at home, and she has elected to go home. She was encouraged to continue the albuterol inhaler, and can use the cough syrup that she was prescribed. She does not have access to a nebulizer machine at home at this time. She has another 2-3 days of steroid therapy, and will complete the course of doxycycline. She was educated on the worrisome signs or symptoms for which she should return to the emergency department. She expressed understanding of this and was agreeable. She is discharged to home in good condition, vital signs were stable at that time. Blood pressure screening: Patient was found to have a slightly elevated blood pressure due to circumstances. I do not believe that the patient requires hypertension monitoring. Medication reconciliation: I attest that I have personally reviewed the patient' s current medication list. (CHEST FOR PE) ANGIO WITH CLINICAL HISTORY: 36 years-old Female presenting with cough, shortness of breath, wheezing, elevated d-dimer. TECHNIQUE: Multidetector CT angiography of the chest was performed after administration of intravenous contrast. 3-D volumetric and/or maximum intensity projection (MIP) images were subsequently reconstructed for review. IV contrast: 95 mL of Optiray 320. A dose lowering technique was used consistent with the principles of ALARA (as low as reasonably achievable). COMPARISON: 09/30/2016. CT DOSE (mGy.cm): The estimated cumulative dose is 562.84 mGy.cm. FINDINGS: Planer Off Bearer topogram: Unremarkable. Pulmonary vasculature: The study is limited due to delayed phase of contrast with majority of contrast in the left heart and aorta. No central filling defect within the main, right, or left pulmonary arteries. Lobar and distal pulmonary arteries poorly assessed due to delayed phase of contrast. Main pulmonary artery is not enlarged. No flattening of the interventricular septum. No intracardiac intracardiac filling defect. Remaining chest: On soft tissue windows, normal thyroid and thoracic inlet. No axillary, supraclavicular, hilar, or mediastinal lymphadenopathy. Normal aorta. Normal heart size. Trace pericardial effusion. No pleural effusion. Liver density suggests hepatic steatosis. On lung windows, minimal dependent changes at the right lung base likely atelectasis. No other focal infiltrate. Airways patent. On bone windows, degenerative changes of the spine. IMPRESSION: 1. Significantly degraded examination secondary to timing of contrast bolus. No central filling defect within the main, right, or left pulmonary arteries. If there is continuing clinical concern for pulmonary embolus, repeat CTA chest is recommended given the limited diagnostic sensitivity of this exam. 2. No acute intrathoracic pathology. 3. Hepatic steatosis. Problem List Medical Problems: (1) Abdominal wall hernia Status: Chronic (2) Abscess of buttock, left Status: Resolved (3) Abscess of buttock, left Status: Resolved (4) Abscess packing removal Status: Resolved (5) Achilles tendonitis, bilateral Status: Resolved (6) Acute bronchitis Status: Resolved (7) Acute bronchitis Status: Resolved (8) Acute pharyngitis Status: Resolved (9) Anxiety Status: Chronic (10) Bronchitis Status: Resolved (11) Bronchitis Status: Resolved (12) Bronchospasm with bronchitis, acute Status: Resolved (13) CALCULUS OF URETER Status: Resolved (14) Cellulitis Status: Resolved (15) Cellulitis Status: Resolved (16) Cellulitis, abdominal wall Status: Resolved (17) Chest pain Status: Resolved (18) Cough Status: Resolved (19) Elevated blood pressure reading Status: Resolved (20) Irritation of eye Status: Resolved (21) Left buttock abscess Status: Resolved (22) Left otitis externa Status: Resolved (23) MORBID OBESITY Status: Chronic (24) Muscle strain of right upper extremity Status: Resolved (25) Muscle strain of right upper extremity Status: Resolved (26) Otitis media, left Status: Resolved (27) Plantar fasciitis of left foot Status: Resolved (28) Plantar fasciitis, left Status: Resolved (29) Skin problems Status: Resolved (30) Skin ulceration Status: Resolved (31) Skin ulceration Status: Resolved (32) Strain of left Achilles tendon Status: Resolved (33) Strain of right trapezius muscle Status: Resolved (34) Vaginal bleeding Status: Resolved Surgical Problems: (1) Previous section Status: Resolved Current/Historical Medications Scheduled Doxycycline Monohydrate (Monodox), 100 MG PO BID Venlafaxine Hcl (Venlafaxine Extended Rel), 37.5 MG PO DAILY Allergies Coded Allergies: No Known Allergies (Verified , 12/28/16) Vital Signs Date Time Temp Pulse Resp B/P (MAP) Pulse Ox O2 Delivery O2 Flow Rate FiO2 12/28/16 11:01 70 22 151/90 93 12/28/16 10:34 70 151/90 92 Room Air 12/28/16 10:03 96 12/28/16 09:42 79 25 92 12/28/16 09:37 134/86 12/28/16 09:23 85 94 Room Air 12/28/16 09:12 83 24 91 12/28/16 09:07 127/82 12/28/16 08:38 81 23 97 12/28/16 08:33 72 12/28/16 08:31 138/99 12/28/16 08:24 Room Air 12/28/16 08:00 78 112/86 97 Room Air 12/28/16 07:44 70 16 95 Room Air 12/28/16 07:11 36.4 89 24 173/100 97 Room Air Laboratory Results 12/28/16 07:45 Red Blood Count 4.89, Mean Corpuscular Volume 89.6, Mean Corpuscular Hemoglobin 31.3, Mean Corpuscular Hemoglobin Concent 34.9, Mean Platelet Volume 10.8, Neutrophils (%) (Auto) 49.8, Lymphocytes (%) (Auto) 40.5, Monocytes (%) (Auto) 6.1, Eosinophils (%) (Auto) 1.3, Basophils (%) (Auto) 0.3, Neutrophils # (Auto) 8.86, Lymphocytes # (Auto) 7.19, Monocytes # (Auto) 1.08, Eosinophils # (Auto) 0.23, Basophils # (Auto) 0.05 12/28/16 07:45 Test 12/28/16 07:45 12/28/16 07:52 White Blood Count 17.77 K/uL (4.8-10.8) Red Blood Count 4.89 M/uL (4.2-5.4) Hemoglobin 15.3 g/dL (12.0-16.0) Hematocrit 43.8 % (37-47) Mean Corpuscular Volume 89.6 fL (80-100) Mean Corpuscular Hemoglobin 31.3 pg (25-34) Mean Corpuscular Hemoglobin Concent 34.9 g/dl (32-36) Platelet Count 237 K/uL (130-400) Mean Platelet Volume 10.8 fL (7.4-10.4) Neutrophils (%) (Auto) 49.8 % Lymphocytes (%) (Auto) 40.5 % Monocytes (%) (Auto) 6.1 % Eosinophils (%) (Auto) 1.3 % Basophils (%) (Auto) 0.3 % Neutrophils # (Auto) 8.86 K/uL (1.4-6.5) Lymphocytes # (Auto) 7.19 K/uL (1.2-3.4) Monocytes # (Auto) 1.08 K/uL (0.11-0.59) Eosinophils # (Auto) 0.23 K/uL (0-0.5) Basophils # (Auto) 0.05 K/uL (0-0.2) RDW Standard Deviation 41.6 fL (36.4-46.3) RDW Coefficient of Variation 12.8 % (11.5-14.5) Immature Granulocyte % (Auto) 2.0 % Immature Granulocyte # (Auto) 0.36 K/uL (0.00-0.02) Anion Gap 9.0 mmol/L (3-11) Est Creatinine Clear Calc Drug Dose 141.6 ml/min Estimated GFR () 119.7 Estimated GFR (Non- 103.3 BUN/Creatinine Ratio 25.9 (10-20) Calcium Level 9.0 mg/dl (8.5-10.1) Magnesium Level 1.8 mg/dl (1.8-2.4) Human Chorionic Gonadotropin, Qual NEG (NEG) Bedside D-Dimer > 450 ng/mlFEU (0-450) Medications Administered Medications (Trade) Dose Ordered Sig/Hussein Route Start Time Stop Time Status Last Admin Dose Admin Sodium Chloride 1,000 ml @ 999 mls/hr Q1H1M STAT IV 12/28/16 07:28 12/28/16 08:28 DC 12/28/16 08:10 999 MLS/HR Sodium Chloride 1,000 ml @ 250 mls/hr Q4H STAT IV 12/28/16 07:28 12/28/16 11:17 DC 12/28/16 09:04 250 MLS/HR Methylprednisolone Sodium Succinate (Solu-Medrol IV) 125 mg NOW STAT IV 12/28/16 07:28 12/28/16 07:32 DC 12/28/16 08:10 125 MG Albuterol/ Ipratropium (Duoneb) 12 ml NOW STAT INH 12/28/16 07:28 12/28/16 07:32 DC 12/28/16 07:43 12 ML Departure Information Impression Primary Impression: Bronchospasm with bronchitis, acute Referrals Diane Perez D.OJessie (PCP) Patient Instructions My [facility] Additional Instructions Continue Prednisone, Doxycycline, Albuterol inhaler and cough syrup as previously prescribed. Ibuprofen(Motrin, Advil) may be used for fever or pain. Use 600mg every six hours as needed. Take with food. Avoid using more than 2400mg in a 24 hour period. Do not use 2400mg per day for more than three consecutive days without physician direction. Prolonged inappropriate use can lead to stomach upset or ulcers. This is available over the counter and typically comes in 200mg tablets. (AND/OR) Acetaminophen(Tylenol) may be used for fever or pain. Use 1000mg every eight hours as needed. Avoid using more than 3000mg in a 24 hour period. This is available over the counter. Rest and drink plenty of fluids. Avoid strenuous activity until your symptoms resolve and your breathing returns to normal. Continue current medications. Return to the ER for chest pain, difficulty breathing, persistent fevers, vomiting, worsening of your condition, or as needed Follow-up with your PCP on Thursday or Thursday for recheck.
[2016-12-28 11:01] VITALS: BP 151/90; PULSE 70; O2SAT 93
== END 2016-12-28 11:02 | disposition home or self-care (01) ==
LOC: C.EDB 07:09 → C.EDC 11:02
DX: J20.9 Acute bronchitis, unspecified (principal); K43.9 Ventral hernia without obstruction or gangrene; F41.9 Anxiety disorder, unspecified; E66.01 Morbid (severe) obesity due to excess calories

== ENCOUNTER 2017-02-04 08:28 | Emergency (ER) | payer BC ==
[~2017-02-04] VITALS: Ht 152.4 cm; Wt 147.3 kg
[~2017-02-04 08:28] MED LIST changes: +DOXY100C76 PO; -HYDR-5688 PO
[2017-02-04 08:32] VITALS: TEMP 36.7; Ht 152.4 cm; Wt 147.3 kg
--- NOTE | 2017-02-04 10:06 | DIAGNOSTIC IMAGING REPORT ---
CT HEAD WITHOUT CONTRAST (CT) CLINICAL HISTORY: , Nausea, facial numbness. COMPARISON STUDY: No previous studies for comparison. TECHNIQUE: Axial CT of the brain is performed from the vertex to the skull base. IV contrast was not administered for this examination. A dose lowering technique was utilized adhering to the principles of ALARA. CT DOSE: 679.75 mGycm FINDINGS: No intra or extra-axial mass lesions are visualized. There is no CT evidence of acute cortical infarction. There is no evidence of midline shift. There is no acute hemorrhage. No calvarial fractures are visualized. There is no evidence of pathologic ventricular dilatation. There is no evidence of acute sinusitis IMPRESSION: Normal noncontrast head CT. Electronically signed by: Steve Morel M.D. 02/04/2017 10:04 AM Dictated Date/Time: 02/04/2017 10:03 AM
[2017-02-04 10:09] LABS: BASO % 0.3 %; BASO ABS # 0.03 K/uL (0-0.2); COMPLETE YES; EOS % 1.4 %; HEMATOCRIT 38.2 % (37-47); IG% 0.4 %; LYMPH % 28.4 %; LYMPH ABS # 2.97 K/uL (1.2-3.4); MEAN CELL VOLUME 90.1 fL (80-100); MEAN CORPUSCULAR HEMOGLOBIN 30.4 pg (25-34); MEAN CORPUSCULAR HGB CONC 33.8 g/dl (32-36); MEAN PLATELET VOLUME 11.3 fL (7.4-10.4); MONO % 5.7 %; NEUT % 63.8 %; PLATELET COUNT 183 K/uL (130-400); RED BLOOD COUNT 4.24 M/uL (4.2-5.4); WHITE BLOOD COUNT 10.47 K/uL (4.8-10.8)
[2017-02-04 10:10] LABS: URINE APPEARANCE CLEAR (CLEAR); URINE BILIRUBIN NEG (NEG); URINE COLOR YELLOW; URINE NITRITE NEG (NEG); URINE PH 6.5 (4.5-7.5); URINE SPECIFIC GRAVITY 1.013 (1.000-1.030); UROBILINOGEN NEG (NEG)
[2017-02-04 10:17] LABS: MANUAL MICROSCOPIC REQUIRED? NO; REVIEW REQ? NO
[2017-02-04 10:17] LABS: PROTHROMBIN TIME (PATIENT) 11.1 SECONDS (9.0-12.0)
[2017-02-04 10:26] LABS: CREATININE 0.74 mg/dl (0.60-1.20)
[2017-02-04 10:27] LABS: BUN/CREATININE RATIO 11.3 (10-20); CALCIUM 8.2 mg/dl (8.5-10.1); MAGNESIUM 1.8 mg/dl (1.8-2.4); POTASSIUM 3.8 mmol/L (3.5-5.1)
[2017-02-04 10:36] LABS: ALB/GLOB RATIO 0.8 (0.9-2); C-REACTIVE PROTEIN 1.14 mg/dl (0-0.29); THYROID STIMULATING HORMONE 2.57 uIu/ml (0.300-4.500)
--- NOTE | 2017-02-04 11:55 | EMERGENCY ROOM VISIT NOTE ---
History First contact with patient: 08:37 Chief Complaint: SINUS CONGESTION/PRESSURE Stated Complaint: PRESSURE IN HEAD, DIZZY, N, PAIN/TINGLING Nursing Triage Summary: daniel c/o cough, sinus congestion since thursday. patient has had on off symptoms of dry eyes, headaches in the morning, ear numbness, generalized itchiness, episodes of dizziness and nausea every morning. History of Present Illness Patient is a 36-year-old white female with no significant past medical history who presents emergency department for evaluation of multiple complaints. First , she reports that she has had problems with nausea for several months. She was states this has been going on since almost April intermittently, but she has been waking up with daily nausea for the last couple of weeks. She was prescribed Zofran by her PCP at one point for an unrelated condition, which she has been taking for this nausea with intermittent relief. She denies any associated abdominal pain. She has some dry heaves, but doesn't frankly vomit. She denies any history of stomach problems, no indigestion, reflux or regurgitation. She also has begun to experience frontal headaches. She describes it as a pressure sensation like a "balloon blowing up.", She notes some numbness in her forehead on occasion. She feels generally fatigued, has difficulty getting through her work today. She has had some urinary incontinence, which is new for her. She also reports some generalized itching and "pins and needles." 3 days ago, she noted numbness in her right ear. Last night she noticed numbness in the left tongue and underneath her left eye. The numbness has subsequently resolved. The facial numbness concerned her which prompted her to come to the emergency department this morning. She denies any lightheadedness or dizziness. No fever or chills. No cold or upper respiratory symptoms. She has not previously seen any providers for these symptoms. No chest pain, palpitations or shortness of breath. She denies any frequent weakness in the extremities. Last menstrual period was 2 weeks ago, was heavy and was painful, which is typical for her. She is without any complaints of headache or facial numbness at this time. Review of Systems Review of systems as per HPI. All other systems reviewed were negative. 10 systems reviewed. Past Medical/Surgical History Medical Problems: (1) Abdominal wall hernia (2) Abscess of buttock, left (3) Abscess of buttock, left (4) Abscess packing removal (5) Achilles tendonitis, bilateral (6) Acute bronchitis (7) Acute bronchitis (8) Acute pharyngitis (9) Anxiety (10) Bronchitis (11) Bronchitis (12) Bronchospasm with bronchitis, acute (13) Bronchospasm with bronchitis, acute (14) CALCULUS OF URETER (15) Cellulitis (16) Cellulitis (17) Cellulitis, abdominal wall (18) Chest pain (19) Cough (20) Elevated blood pressure reading (21) Irritation of eye (22) Left buttock abscess (23) Left otitis externa (24) MORBID OBESITY (25) Muscle strain of right upper extremity (26) Muscle strain of right upper extremity (27) Otitis media, left (28) Plantar fasciitis of left foot (29) Plantar fasciitis, left (30) Skin problems (31) Skin ulceration (32) Skin ulceration (33) Strain of left Achilles tendon (34) Strain of right trapezius muscle (35) Vaginal bleeding Surgical Problems: (1) Previous section Electronic medical records are reviewed and summarized as above/below. See Problem List. Family History Diabetes mellitus FH: cancer Hypertension Kidney disease Kidney stones Social History Smoking Status: Current Every Day Smoker Alcohol Use: occasionally Drug Use: none Marital Status: Housing Status: lives with family Occupation Status: employed Current/Historical Medications Scheduled Venlafaxine Hcl (Venlafaxine Extended Rel), 37.5 MG PO DAILY Physical Exam Vital Signs Date Time Temp Pulse Resp B/P (MAP) Pulse Ox O2 Delivery O2 Flow Rate FiO2 02/04/17 12:07 60 18 138/82 97 02/04/17 10:05 84 22 158/89 97 Room Air 02/04/17 08:35 94 Room Air 02/04/17 08:32 36.7 82 20 167/102 96 Room Air Physical Exam CONSTITUTIONAL: Patient is a morbidly obese 36-year-old white female who is awake and alert and laying on the gurney in no acute distress. EYES: Pupils equal, round, reactive to light and accommodation. EOMs intact without nystagmus. Sclera are anicteric. ENT: Tympanic membranes intact, with normal landmarks. External canals are clear. Oral and nasopharynx are clear. Mucous membranes are moist, no lesions , tongue and gums appear normal. NECK: No bruits auscultated. Supple without lymphadenopathy. No thyromegaly. No meningeal signs. Full active range of motion without discomfort. CARDIOVASCULAR: Regular rate and rhythm, with normal S1 and S2, no murmur or gallop or rub is heard. No carotid bruits auscultated. No JVD. Peripheral pulses easy to palpable. RESPIRATORY: Breath sounds equal and clear to auscultation without wheezes, rales, or rhonchi heard. Full and equal chest expansion without accessory muscle use or retractions. GI: Bowel sounds are present. Abdomen is soft, nontender, nondistended. No organomegaly. No pulsatile masses. No guarding or rebound. MUSCULOSKELETAL: Full range of motion of extremities x 4 with good strength. No cyanosis, edema, joint tenderness or swelling. No deformity. INTEGUMENTARY: No lesions or rash, normal skin turgor. NEUROLOGICAL: Alert, oriented, and cooperative. Cranial nerves 2 through 12, sensation and strength grossly intact. Normal gait. Able to tandem walk without difficulty. Negative Romberg and pronator drift. Finger to nose, finger to finger and rapid alternating movements are intact. Mini-Mental status exam is unremarkable. LYMPH: No lymphadenopathy. Medical Decision & Procedures ER Provider Diagnostic Interpretation: CT HEAD WITHOUT CONTRAST (CT) CLINICAL HISTORY: , Nausea, facial numbness. COMPARISON STUDY: No previous studies for comparison. TECHNIQUE: Axial CT of the brain is performed from the vertex to the skull base. IV contrast was not administered for this examination. A dose lowering technique was utilized adhering to the principles of ALARA. CT DOSE: 679.75 mGycm FINDINGS: No intra or extra-axial mass lesions are visualized. There is no CT evidence of acute cortical infarction. There is no evidence of midline shift. There is no acute hemorrhage. No calvarial fractures are visualized. There is no evidence of pathologic ventricular dilatation. There is no evidence of acute sinusitis IMPRESSION: Normal noncontrast head CT. Laboratory Results 02/04/17 09:45 Red Blood Count 4.24, Mean Corpuscular Volume 90.1, Mean Corpuscular Hemoglobin 30.4, Mean Corpuscular Hemoglobin Concent 33.8, Mean Platelet Volume 11.3, Neutrophils (%) (Auto) 63.8, Lymphocytes (%) (Auto) 28.4, Monocytes (%) (Auto) 5.7, Eosinophils (%) (Auto) 1.4, Basophils (%) (Auto) 0.3, Neutrophils # (Auto) 6.68, Lymphocytes # (Auto) 2.97, Monocytes # (Auto) 0.60, Eosinophils # (Auto) 0.15, Basophils # (Auto) 0.03 02/04/17 09:45 Test 02/04/17 09:30 02/04/17 09:45 Urine Color YELLOW Urine Appearance CLEAR (CLEAR) Urine pH 6.5 (4.5-7.5) Urine Specific [place] 1.013 (1.000-1.030) Urine Protein NEG (NEG) Urine Glucose (UA) 1+ (NEG) Urine Ketones NEG (NEG) Urine Occult Blood NEG (NEG) Urine Nitrite NEG (NEG) Urine Bilirubin NEG (NEG) Urine Urobilinogen NEG (NEG) Urine Leukocyte Esterase NEG (NEG) Urine Test NEG (NEG) White Blood Count 10.47 K/uL (4.8-10.8) Red Blood Count 4.24 M/uL (4.2-5.4) Hemoglobin 12.9 g/dL (12.0-16.0) Hematocrit 38.2 % (37-47) Mean Corpuscular Volume 90.1 fL (80-100) Mean Corpuscular Hemoglobin 30.4 pg (25-34) Mean Corpuscular Hemoglobin Concent 33.8 g/dl (32-36) Platelet Count 183 K/uL (130-400) Mean Platelet Volume 11.3 fL (7.4-10.4) Neutrophils (%) (Auto) 63.8 % Lymphocytes (%) (Auto) 28.4 % Monocytes (%) (Auto) 5.7 % Eosinophils (%) (Auto) 1.4 % Basophils (%) (Auto) 0.3 % Neutrophils # (Auto) 6.68 K/uL (1.4-6.5) Lymphocytes # (Auto) 2.97 K/uL (1.2-3.4) Monocytes # (Auto) 0.60 K/uL (0.11-0.59) Eosinophils # (Auto) 0.15 K/uL (0-0.5) Basophils # (Auto) 0.03 K/uL (0-0.2) RDW Standard Deviation 42.7 fL (36.4-46.3) RDW Coefficient of Variation 13.1 % (11.5-14.5) Immature Granulocyte % (Auto) 0.4 % Immature Granulocyte # (Auto) 0.04 K/uL (0.00-0.02) Erythrocyte Sedimentation Rate 27 mm/hr (0-21) Prothrombin Time 11.1 SECONDS (9.0-12.0) Prothromb Time International Ratio 1.0 (0.9-1.1) Activated Partial Thromboplast Time 25.0 SECONDS (21.0-31.0) Partial Thromboplastin Ratio 1.0 Anion Gap 7.0 mmol/L (3-11) Est Creatinine Clear Calc Drug Dose 144.4 ml/min Estimated GFR () 121.7 Estimated GFR (Non- 105.0 BUN/Creatinine Ratio 11.3 (10-20) Calcium Level 8.2 mg/dl (8.5-10.1) Magnesium Level 1.8 mg/dl (1.8-2.4) Total Bilirubin 0.2 mg/dl (0.2-1) Aspartate Amino Transf (AST/SGOT) 25 U/L (15-37) Alanine Aminotransferase (ALT/SGPT) 34 U/L (12-78) Alkaline Phosphatase 111 U/L (45-117) C-Reactive Protein 1.14 mg/dl (0-0.29) Total Protein 6.3 gm/dl (6.4-8.2) Albumin 2.7 gm/dl (3.4-5.0) Globulin 3.6 gm/dl (2.5-4.0) Albumin/Globulin Ratio 0.8 (0.9-2) Lipase 110 U/L (73-393) Thyroid Stimulating Hormone (TSH) 2.570 uIu/ml (0.300-4.500) ED Course The patient was seen and evaluated as above. Her old records are reviewed. She presents the emergency department with multiple complaints, primarily nausea , headaches and facial numbness. She has had symptoms before several weeks. IV lock was initiated. Laboratory studies were collected. CBC with differential, sedimentation rate, CRP, coags CMP, magnesium, TSH, CMP, lipase, urinalysis and urine test were collected. To evaluate for her head pain and the neurologic symptoms she described, head CT was performed, and was unremarkable. Laboratory studies are without any significant abnormalities. White count is normal. Chest is within normal limits. She has slight, nonspecific elevation of her sedimentation rate and CRP. Electrolytes and renal functions are normal. Liver functions are not elevated. Lipase does not indicate acute pancreatitis. TSH is negative of a euthyroid state. Urinalysis is completely clear. All laboratory and diagnostic imaging studies were reviewed with the patient and her , and discussed with attending physician. On reassessment, the patient was sleeping comfortably on the gurney. Her ED workup was discussed with her at length. Differential diagnoses entertained included Differential includes: acute intracranial bleed, meningitis, encephalitis, mass or mass effect, sinusitis, infection, migraine, tumor, headache, temporal arteritis, pseudotumor, MS/demyelinating process, among others. She has a benign neurologic exam at this time. She will require further workup as directed by her PCP for further evaluation of her symptoms. This was discussed with the patient and she was in agreement. Discharged home in good condition. She had no pain at the time of discharge. Medical Decision See Emergency Department course. Medication Reconcilliation Current Medication List: was personally reviewed by ut Blood Pressure Screening Patient's blood pressure: Elevated blood pressure Blood pressure disposition: Referred to PCP Impression Primary Impression: Headache Additional Impression: Nausea Departure Information Referrals No Doctor, Assigned (PCP) Patient Instructions My [facility] [employer] Additional Instructions Continue current medications. Ibuprofen(Motrin, Advil) may be used for fever or pain. Use 600mg every six hours as needed. Take with food. Avoid using more than 2400mg in a 24 hour period. Do not use 2400mg per day for more than three consecutive days without physician direction. Prolonged inappropriate use can lead to stomach upset or ulcers. (AND/OR) Acetaminophen(Tylenol) may be used for fever or pain. Use 1000mg every six hours as needed. Avoid using more than 3000mg in a 24 hour period. Return to the ER for passing out, worsening headache, vision problems, neck stiffness/pain, fevers, vomiting, worsening of your condition, or as needed. Follow up with your primary physician this week for a recheck of your current condition. Problem Qualifiers Primary Impression: Headache
[2017-02-04 12:07] VITALS: BP 138/82; PULSE 60; O2SAT 97
[2017-02-18] MEDS ORDERED: GLC500 PO (12:30)
== END 2017-02-04 12:09 | disposition home or self-care (01) ==
LOC: C.EDB 08:30 → C.EDA 12:09
DX: R51 Headache (principal); R11.0 Nausea; F41.9 Anxiety disorder, unspecified; E66.01 Morbid (severe) obesity due to excess calories; Z83.3 Family history of diabetes mellitus; Z80.9 Family history of malignant neoplasm, unspecified; Z84.1 Family history of disorders of kidney and ureter; F17.210 Nicotine dependence, cigarettes, uncomplicated; Z79.899 Other long term (current) drug therapy

== ENCOUNTER → 2017-04-21 | Outpatient (CLI) | payer BC ==
[~2017-04-21] MED LIST changes: -DOXY100C76 PO; +GLC500 PO
--- NOTE | 2017-04-21 16:44 | DIAGNOSTIC IMAGING REPORT ---
CT SCAN OF THE ABDOMEN AND PELVIS WITHOUT CONTRAST CLINICAL HISTORY: Right flank pain and hematuria COMPARISON STUDY: 07/02/2015 TECHNIQUE: CT scan of the abdomen and pelvis was performed from the lung bases to the proximal femurs. Images are reviewed in the axial, sagittal, and coronal planes. IV contrast was not administered for this examination. A dose lowering technique was utilized adhering to the principles of ALARA. CT DOSE: 3354.18 mGy.cm FINDINGS: Lower chest: The heart is normal in size and configuration, without pericardial effusion. The lung bases and pleural spaces are clear. Liver: There is hepatic steatosis. The liver is enlarged measuring 25 cm in length. Gallbladder: Unremarkable. Spleen: The spleen measures 12 cm in length. Pancreas: Unremarkable. Adrenal glands: Unremarkable. Kidneys: There are multiple tiny bilateral renal calculi. There is a 7 x 2 mm calculus at the level the right ureteral pelvic junction. There are 2 proximal left ureteral calculi measuring 6 x 3 millimeters and 2 x 2 mm. Their is no significant hydronephrosis. Bowel: There are no transition zones indicate bowel obstruction. There is a lower pelvic ventral hernia which contains a tiny knuckle of transverse colon. This is nonobstructing. There is a second lower pelvic fat-containing ventral hernia. There is a fat-containing umbilical hernia. There is no acute diverticulitis. The appendix appears normal. Peritoneum: There is no intraperitoneal free air or abdominal ascites. Vasculature: The abdominal aorta is normal in course and caliber. Adenopathy: None. Pelvic viscera: The bladder, and pelvic viscera are unremarkable. Skeletal structures: No destructive osseous lesions are seen. IMPRESSION: 1. Bilateral nephrolithiasis 2. Bilateral proximal ureteral calculi about significant hydronephrosis 3. No evidence of bowel obstruction. No evidence of free air 4. Hepatic steatosis 5. Multiple abdominal wall hernias Electronically signed by: Steve Morel M.D. 04/21/2017 4:43 PM Dictated Date/Time: 04/21/2017 4:35 PM
== END | disposition home or self-care (01) ==
LOC: C.CTS 16:21
PROVIDERS: ATTEND Family Medicine
DX: R10.11 Right upper quadrant pain (principal); R31.9 Hematuria, unspecified; N20.0 Calculus of kidney; K43.9 Ventral hernia without obstruction or gangrene; K76.0 Fatty (change of) liver, not elsewhere classified

== ENCOUNTER 2017-04-29 10:15 | Observation (INO) | payer BC ==
[~2017-04-29] VITALS: Ht 152.4 cm; Wt 141.4 kg
[2017-04-29] MEDS ORDERED: SODIUM CHLORIDE 0.9% 1000ML 1,000 ML IV STA (11:01)
[2017-04-29] MEDS ORDERED: MoRPHine SULFATE 10 MG/ML CARP/VIAL IV STA (11:01)
[2017-04-29] MEDS ORDERED: ONDANSETRON INJ 2 MG/ML 2 ML VIAL IV STA (11:01)
[2017-04-29] MEDS ORDERED: MoRPHine SULFATE 4 MG/ML 1 ML CARP\\VIAL ONE (11:08)
[2017-04-29] MEDS ORDERED: MoRPHine SULFATE 2 MG/ML CARP ONE (11:08)
[2017-04-29 11:17] LABS: BASO % 0.7 %; BASO ABS # 0.06 K/uL (0-0.2); EOS ABS # 0.18 K/uL (0-0.5); HEMATOCRIT 42.4 % (37-47); HEMOGLOBIN 14.5 g/dL (12.0-16.0); IG# 0.02 K/uL (0.00-0.02); LYMPH % 31.9 %; LYMPH ABS # 2.92 K/uL (1.2-3.4); MEAN CORPUSCULAR HEMOGLOBIN 30.8 pg (25-34); MEAN CORPUSCULAR HGB CONC 34.2 g/dl (32-36); MEAN PLATELET VOLUME 11.5 fL (7.4-10.4); MONO % 6.5 %; MONO ABS # 0.59 K/uL (0.11-0.59); NEUT % 58.7 %; NEUT ABS # 5.37 K/uL (1.4-6.5); PLATELET COUNT 216 K/uL (130-400); RED CELL DISTRIBUTION WIDTH CV 12.7 % (11.5-14.5); RED CELL DISTRIBUTION WIDTH SD 41.6 fL (36.4-46.3); WHITE BLOOD COUNT 9.14 K/uL (4.8-10.8)
[2017-04-29 11:36] LABS: ALBUMIN 3.1 gm/dl (3.4-5.0); ALT/SGPT 39 U/L (12-78); AST/SGOT 29 U/L (15-37); BLOOD UREA NITROGEN 12 mg/dl (7-18); CALCIUM 8.8 mg/dl (8.5-10.1); CARBON DIOXIDE 26 mmol/L (21-32); CREATININE 0.72 mg/dl (0.60-1.20); GLUCOSE 226 mg/dl (70-99); LIPASE 96 U/L (73-393); POTASSIUM 3.7 mmol/L (3.5-5.1); SODIUM 137 mmol/L (136-145)
[2017-04-29 11:39] LABS: ALKALINE PHOSPHATASE 100 U/L (45-117); TOTAL PROTEIN 6.8 gm/dl (6.4-8.2)
--- NOTE | 2017-04-29 11:45 | DIAGNOSTIC IMAGING REPORT ---
ABD/PELVIS WITHOUT FOR STONE HISTORY: 37 years-old Female EVALUATE FLANK PAIN/HEMATURIA acute right-sided flank pain with hematuria COMPARISON: CT abdomen and pelvis 04/21/2017 TECHNIQUE: Multiple axial CT images of the abdomen and pelvis were obtained without contrast. A dose lowering technique was used consistent with the principals of JOE. FINDINGS: The patient is morbidly obese with portions of the anatomy outside the [id number]. The lung bases appear generally clear with minimal linear subsegmental atelectasis or scarring of the inferior segment lingula. No pneumatosis or pneumoperitoneum identified. Imaged inferior cardiac chambers are unremarkable. Hepatic steatosis with mild hepatomegaly. Gallbladder, spleen, pancreas and adrenal glands are within normal limits. There are at least 7 nonobstructing renal calculi on the left measuring up to 3 mm. There are least 6 nonobstructing renal calculi on the right measuring up to 5 mm. 4 mm calculus of the proximal left ureter appears unchanged from comparison and demonstrates no significant migration or associated obstructive uropathy. Single linear or multiple subjacent small calculi are seen within the proximal right ureter measuring up to 8 x 2 mm nicely seen on the coronal images. This has slightly migrated distally by approximately 2.2 cm. No significant obstructive uropathy on the right. Urinary bladder is mostly collapsed. Cystic structure suggesting a follicles noted on the right measuring up to 2.3 cm. Uterus is unremarkable. Aorta is normal in course and caliber. No bulky adenopathy. There is no bowel obstruction or focal bowel wall thickening. Appendix appears normal. Multiple fat filled abdominal wall hernias are again seen, including a lateral lower left pelvic wall hernia with diastases measuring 3.0 cm. Note is made of diastases recti. Infra umbilical ventral midline abdominal wall hernias noted, diastases 4.6 cm. Bones appear intact. IMPRESSION: 1. Bilateral nephrolithiasis redemonstrated with 4 mm calculus of the proximal left ureter unchanged from comparison. There is slight distal progression of the calculus or multiple small calculi of the proximal right ureter as above. No obstructive uropathy identified. 2. Hepatic steatosis. 3. Multiple abdominal wall hernias redemonstrated. 4. Normal appendix. The above report was generated using voice recognition software. It may contain grammatical, syntax or spelling errors. Electronically signed by: Marco A Conteh M.D. 04/29/2017 11:44 AM Dictated Date/Time: 04/29/2017 11:36 AM
[2017-04-29] MEDS ORDERED: MoRPHine SULFATE 4 MG/ML 1 ML CARP\\VIAL IV STA (12:38)
[2017-04-29] MEDS ORDERED: ONDANSETRON INJ 2 MG/ML 2 ML VIAL IV PRN (13:30)
[2017-04-29] MEDS ORDERED: TRAM-10 PO (13:37)
[2017-04-29] MEDS ORDERED: LSN5 PO (13:37)
[2017-04-29 13:40] VITALS: O2SAT 95; BMI 60.9
[2017-04-29] MEDS ORDERED: GLUCAGON FOR INJ 1 MG VIAL SQ PRN (13:45)
[2017-04-29] MEDS ORDERED: GLUCOSE 40% GEL 15 GM TUBE PO PRN (13:45)
[2017-04-29] MEDS ORDERED: DEXTROSE 50% 50 ML SYR IV PRN (13:45)
[2017-04-29] MEDS ORDERED: GLUCOSE 10 TABS/TUBE PO PRN (13:45)
[2017-04-29] MEDS ORDERED: IV FLUIDS COMPLETED PRN (14:15)
--- NOTE | 2017-04-29 14:34 | History and Physical ---
History & Physical Date & Time of Service: Apr 29, 2017 at 13:30 Chief Complaint: Kidney Stones Primary Care Physician: Nyasia Herrera D.O. History of Present Illness Source: patient, clinic records, hospital records This is a 37yo F with a PMH of DM II, tobacco use disorder and h/o kidney stones who presents with worsening R flank pain x 2 weeks. Describes pain along R and L flank with radiation to lower back. Associated dysuria and nausea. Patient saw PCP last week and had an out-patient CT abd pelvis performed which showed presence of multiple non-obstructing stones with the largest at 8 x 2 mm in the proximal R ureter. Also had a 4mm stone in proximal L ureter. UA and urine culture without infection. Was sent home with tramadol and tamsulosin. Patient experienced nausea while on tamsulosin, so she stopped taking it after a few days. Has continued to have worsening R flank pain over the past few days as well as associated dysuria and nausea. Denies fever, chills, CP, SOB, vomiting, hematuria, pyuria, oliguria, diarrhea or constipation. Last episode of kidney stones was 3 years ago and states that stones passed within a day of onset of symptoms. Family History Diabetes mellitus FH: cancer Hypertension Kidney disease Kidney stones Social History Smoking Status: Current Every Day Smoker (1.5 ppd) Alcohol Use: socially Drug Use: none Marital Status: Housing status: lives with family Occupational Status: employed Immunizations History of Influenza Vaccine: No History of Tetanus Vaccine?: No History of Pneumococcal: No History of Hepatitis B Vaccine: Unknown Multi-Drug Resistant Organisms History of MDRO: No Allergies Coded Allergies: No Known Allergies (Verified , 04/29/17) Home Medications Scheduled Lisinopril (Lisinopril), 1 TAB PO DAILY Metformin HCl (Metformin HCl), 500 MG PO BID Venlafaxine Hcl (Venlafaxine Extended Rel), 37.5 MG PO DAILY Scheduled PRN Tramadol (Ultram), 50 MG PO Q6H PRN for Pain Review of Systems Ten systems reviewed and negative except as noted in the HPI. Physical Exam Vital Signs Date Time Temp Pulse Resp B/P (MAP) Pulse Ox O2 Delivery O2 Flow Rate FiO2 04/29/17 13:40 95 Room Air 04/29/17 12:06 65 16 112/66 95 Room Air 04/29/17 10:24 36.4 78 20 165/97 95 Room Air General Appearance: no apparent distress, + obese Head: normocephalic, atraumatic Eyes: normal inspection, PERRL, sclerae normal ENT: normal ENT inspection, hearing grossly normal, pharynx normal Neck: supple, thyroid normal, trachea midline Respiratory/Chest: chest non-tender, lungs clear, normal breath sounds, no respiratory distress, no accessory muscle use Cardiovascular: regular rate, rhythm, no murmur, normal peripheral pulses Abdomen/GI: normal bowel sounds, soft, no organomegaly, + tenderness (R>L flank pain ) Back: + left CVA tenderness, + right CVA tenderness Extremities/Musculoskelatal: normal inspection, no calf tenderness, no pedal edema Neurologic/Psych: no motor/sensory deficits, alert, normal mood/affect, oriented x 3 Skin: normal color, warm/dry Diagnostics Laboratory Results Results Past 24 Hours Test 04/29/17 10:40 04/29/17 10:45 Range/Units Urine Color YELLOW Urine Appearance CLEAR CLEAR Urine pH 6.0 4.5-7.5 Urine Specific [place] 1.019 1.000-1.030 Urine Protein NEG NEG Urine Glucose (UA) NEG NEG Urine Ketones NEG NEG Urine Occult Blood NEG NEG Urine Nitrite NEG NEG Urine Bilirubin NEG NEG Urine Urobilinogen NEG NEG Urine Leukocyte Esterase TRACE NEG Urine WBC (Auto) 1-5 0-5 /hpf Urine RBC (Auto) 0-4 0-4 /hpf Urine Hyaline Casts (Auto) 1-5 0-5 /lpf Urine Epithelial Cells (Auto) >30 0-5 /lpf Urine Bacteria (Auto) NEG NEG White Blood Count 9.14 4.8-10.8 K/uL Red Blood Count 4.71 4.2-5.4 M/uL Hemoglobin 14.5 12.0-16.0 g/dL Hematocrit 42.4 37-47 % Mean Corpuscular Volume 90.0 80-100 fL Mean Corpuscular Hemoglobin 30.8 25-34 pg Mean Corpuscular Hemoglobin Concent 34.2 32-36 g/dl Platelet Count 216 130-400 K/uL Mean Platelet Volume 11.5 7.4-10.4 fL Neutrophils (%) (Auto) 58.7 % Lymphocytes (%) (Auto) 31.9 % Monocytes (%) (Auto) 6.5 % Eosinophils (%) (Auto) 2.0 % Basophils (%) (Auto) 0.7 % Neutrophils # (Auto) 5.37 1.4-6.5 K/uL Lymphocytes # (Auto) 2.92 1.2-3.4 K/uL Monocytes # (Auto) 0.59 0.11-0.59 K/uL Eosinophils # (Auto) 0.18 0-0.5 K/uL Basophils # (Auto) 0.06 0-0.2 K/uL RDW Standard Deviation 41.6 36.4-46.3 fL RDW Coefficient of Variation 12.7 11.5-14.5 % Immature Granulocyte % (Auto) 0.2 % Immature Granulocyte # (Auto) 0.02 0.00-0.02 K/uL Sodium Level 137 136-145 mmol/L Potassium Level 3.7 3.5-5.1 mmol/L Chloride Level 105 98-107 mmol/L Carbon Dioxide Level 26 21-32 mmol/L Anion Gap 6.0 3-11 mmol/L Blood Urea Nitrogen 12 7-18 mg/dl Creatinine 0.72 0.60-1.20 mg/dl Est Creatinine Clear Calc Drug Dose 143.0 ml/min Estimated GFR () 124.9 Estimated GFR (Non- 107.7 BUN/Creatinine Ratio 16.6 10-20 Random Glucose 226 70-99 mg/dl Calcium Level 8.8 8.5-10.1 mg/dl Total Bilirubin 0.3 0.2-1 mg/dl Direct Bilirubin < 0.1 0-0.2 mg/dl Aspartate Amino Transf (AST/SGOT) 29 15-37 U/L Alanine Aminotransferase (ALT/SGPT) 39 12-78 U/L Alkaline Phosphatase 100 45-117 U/L Total Protein 6.8 6.4-8.2 gm/dl Albumin 3.1 3.4-5.0 gm/dl Lipase 96 73-393 U/L Diagnostic Radiology CT abd/pelvis: IMPRESSION: 1. Bilateral nephrolithiasis redemonstrated with 4 mm calculus of the proximal left ureter unchanged from comparison. There is slight distal progression of the calculus or multiple small calculi of the proximal right ureter as above. No obstructive uropathy identified. 2. Hepatic steatosis. 3. Multiple abdominal wall hernias redemonstrated. 4. Normal appendix. Impression Assessment and Plan This is a 37yo F with a PMH of DM II, tobacco use disorder and h/o kidney stones who presents with worsening R flank pain x 2 weeks. Describes pain along R and L flank with radiation to lower back. Bilateral nephrolithiasis: -CT abd/pelvis with 8.2 mm stone in proximal R ureter, 4 mm stone in proximal L ureter -Slight progression of calculi distally. No obstruction -Afebrile, no leukocytosis or infection on UA -IVF resuscitation -Strain urine -Pain control -Urology consulted. Will see patient tomorrow -NPO after midnight DM II: uncontrolled -Hgb a1c of 9.2 in Jan 2017 -Takes metformin once daily (prescribed BID) -Lisinopril for kidney protection -Hold home agents -SSI while in-patient -BG checks AC HS Tobacco use disorder: -Smokes 1.5 ppd -Discussed cessation; not interested -Nicotine patch Anxiety: -Stable -Cont Effexor DVT Ppx: Berhane leavitt Code status: FULL PCP: Javier Dispo: Medsurg observation. Plan to return home once medically stable. Patient seen in collaboration with Dr. oRwe. Please see addendum. Agree with above H and P. Briefly 37F with hx of obesity, Dm and hx of kidney stones about 3years ago and at that time passed the stone on her own presents with recurrent kidney stones. Having flank pain since about 2 weeks out patient workup with ct scan showed b/l stones. Could not tolerate Flomax. Since last three days pain got worse. Denies fevers. Had mild nausea. Denies cough or sob. p/e Ge Obese. Not in distress Cvs s1 and s2 heard no murmurs Rs cta b/l no added sounds Abd soft bs present mid right sided tender Fabricator Special Items non focal Ext no edema a/p Renal colic pain control antiemetics iv fluids NPO after midnight Urology on board DM iss will monitor Level of Care Med/Surg Advanced Directives Existing Living Will: No Existing Power of Knitted Cloth Examiner: No Resuscitation Status FULL RESUSCITATION VTE Prophylaxis VTE Risk Assessment Done? Y/N: Yes Risk Level: Low Given or contraindicated: T.E.D. Stockings
[2017-04-29] MEDS: ACETAMINOPHEN 325 MG TAB PO PRN (15:59)
[2017-04-29] MEDS: SODIUM CHLORIDE 0.9% 1000ML 1,000 ML IV SCH ×2 (15:59→23:55)
[2017-04-29] MEDS ORDERED: PNEUMOCOCCAL ADMINISTRATION CHARGE ONE (16:00)
[2017-04-29] MEDS ORDERED: PNEUMOCOCCAL POLYSACCHARIDES 25 MCG/0.5 ML VIAL/SYR IM. ONE (16:00)
[2017-04-29 16:15] VITALS: BP 137/78; PULSE 87; TEMP 36.7; O2SAT 90
[2017-04-29] MEDS: MoRPHine SULFATE 4 MG/ML 1 ML CARP\\VIAL IV PRN ×3 (16:15→23:53)
[2017-04-29 16:30] VITALS: O2SAT 90
[2017-04-29] MEDS: NICOTINE 21 MG/24 HR TDSY TD SCH (16:56)
[2017-04-29] MEDS: INSULIN ASPART 100 UNITS/ML 3 ML PEN SC SCH ×2 (18:33→21:40)
--- NOTE | 2017-04-29 18:57 | Urology Consultation ---
History General Date of Service: Apr 29, 2017. Chief Complaint: Stone, Back and flank pain Primary Care Physician: Nyasia Herrera D.O. Pt seen a urologist before?: Yes History of Present Illness Previous stone 8 years ago. Presented 2 weeks ago and found to have small bilateral proximal stones. Left stone migrated more distal. right has maintained relative position. Continues to make urine. CT shows no significant complete obstruction. Nausea improved. Pain improved but still sore. No recent gross hematuria. 2 x 2mm stone on Left and 1 x 3 mm stone on right. Imaging Imaging: CT Laboratory Labs were reviewed and are within normal limits unless listed below. Labs are available in the chart and at [facility] Problem List Medical Problems: (1) Abdominal wall hernia Status: Chronic (2) Anxiety Status: Chronic (3) Headache Status: Acute (4) Left arm pain Status: Acute (5) Left sided chest pain Status: Acute (6) MORBID OBESITY Status: Chronic (7) Nausea Status: Acute Social History Problems: (1) Diabetes Status: Chronic Past History kidney stones Family History Diabetes mellitus FH: cancer Hypertension Kidney disease Kidney stones Social History Hx Tobacco Use In Past Year?: Yes (ONE PACK PER DAY CIGARETTES) Marital status: Housing status: lives with family Occupation status: employed Immunizations History of Influenza Vaccine: No History of Tetanus Vaccine?: No History of Pneumococcal: No History of Hepatitis B Vaccine: Unknown History of MDRO No Allergies Coded Allergies: No Known Allergies (Verified , 04/29/17) Medications Home Medications: Home Meds and Scripts Medications Dose Route/Sig Max Daily Dose Days Date Category Lisinopril 5 Mg Tab 1 Tab PO DAILY 04/29/17 Reported Ultram (Tramadol HCl) 50 Mg Tab 50 Mg PO Q6H PRN 04/29/17 Reported Metformin HCl 500 Mg Tab 500 Mg PO BID 02/18/17 Reported Venlafaxine Extended Rel (Venlafaxine Hcl) 37.5 Mg Cap 37.5 Mg PO DAILY 12/09/16 Reported Inpatient Medications: Current Inpatient Medications Medications (Trade) Dose Ordered Sig/Hussein Route Start Time Stop Time Status Last Admin Dose Admin Acetaminophen (Tylenol Tab) 650 mg Q4H PRN PO 04/29/17 13:30 05/29/17 13:29 04/29/17 15:59 650 MG Ondansetron HCl (Zofran Inj) 4 mg Q6H PRN IV 04/29/17 13:30 05/29/17 13:29 Morphine Sulfate (MoRPHine SULFATE INJ) 3 mg Q3HWA PRN IV 04/29/17 13:45 05/13/17 13:44 04/29/17 16:15 3 MG Sodium Chloride 1,000 ml @ 125 mls/hr Q8H IV 04/29/17 16:00 05/29/17 15:59 04/29/17 15:59 125 MLS/HR Lisinopril (Zestril Tab) 5 mg DAILY PO 04/30/17 08:00 05/30/17 08:59 Venlafaxine HCl (effeXOR EXTENDED REL CAP) 37.5 mg DAILY PO 04/30/17 08:00 05/30/17 08:59 Insulin Aspart (novoLOG ASPART) SLIDING SCALE If C... ACHS SC 04/29/17 16:00 05/29/17 15:59 04/29/17 18:33 10 UNITS Glucose (Glucose 40% Gel) 15-30 GRAMS 15 GRAMS... UD PRN PO 04/29/17 13:45 05/29/17 13:44 Glucose (Glucose Chew Tab) 4-8 Tablets 4 Tabl... UD PRN PO 04/29/17 13:45 05/29/17 13:44 Dextrose (Dextrose 50% 50ML Syringe) 25-50ML OF 50% DW IV FOR... UD PRN IV 04/29/17 13:45 05/29/17 13:44 Glucagon (Glucagon Inj) 1 mg UD PRN SQ 04/29/17 13:45 05/29/17 13:44 Miscellaneous (Iv Fluids Completed) 1 ea PRN PRN N/A 04/29/17 14:15 04/29/18 14:14 Nicotine (Nicoderm Cq 21MG Patch) 1 patch QAM TD 04/30/17 08:00 05/30/17 08:59 04/29/17 16:56 1 PATCH Miscellaneous (Remove Nicoderm Patch) 1 ea HS N/A 04/29/17 21:00 05/29/17 20:59 Review of Systems Review of Systems All Other Systems: Reviewed and Negative (All reviewed. Pertinent positives and negatives in HPI) Physical Exam Vital Signs: Vital Signs Past 12 Hours Date Time Temp Pulse Resp B/P (MAP) Pulse Ox O2 Delivery O2 Flow Rate FiO2 04/29/17 16:15 36.7 87 20 137/78 (97) 90 Room Air 04/29/17 14:51 64 18 110/63 93 Room Air 04/29/17 13:40 95 Room Air 04/29/17 12:06 65 16 112/66 95 Room Air 04/29/17 10:24 36.4 78 20 165/97 95 Room Air Physical Exam: General Appearance: WD/WN, no apparent distress Eyes: bilateral eyes normal inspection ENT: normal ENT inspection, hearing grossly normal Neck: supple Respiratory/Chest: chest non-tender, no respiratory distress, no accessory muscle use Cardiovascular: regular rate, rhythm Gastrointestinal: Abdomen: normal abdomen (Morbid Obesity) Bladder: normal bladder Extremities: normal range of motion, non-tender Neurologic/Psychiatric: finger lift operator II-XII nml as tested, no motor/sensory deficits, normal mood/affect, oriented x 3 Skin: normal color, warm/dry Lymphatic: no adenopathy Assessment & Plan Assessment & Plan 1. Bilateral Stones 2. Renal Colic 3. Back and Flank Pain Patient tolerating pain at this time. Does have ill feeling and chills. Treated with supportive care. Will plan to make patient NPO at midnight with possible stents in AM depending on patient's clinical picture. Small stones with high chance of spontaneous passage with supportive care. Will monitor and plan to followup as outpatient if improved and able to manage pain issues.
[2017-04-29] MEDS ORDERED: INSULIN GLARGINE SOLOSTAR 100 UNITS/ML 3 ML PEN SC SCH (21:00)
[2017-04-29 23:53] VITALS: BP 119/79; PULSE 59; TEMP 36.6; O2SAT 93
[2017-04-30] MEDS ORDERED: INSULIN ASPART 100 UNITS/ML 3 ML PEN SC ONE (01:00)
--- NOTE | 2017-04-30 06:34 | EMERGENCY ROOM VISIT NOTE ---
ED Visit Note First contact with patient: 10:41 Chief Complaint: Kidney stone. History of Present Illness: Ms. Porter is a 87 year-old white female ambulates into the ED complaining of Historically patient reports 3 years ago she had passed a kidney stone but never had any urological follow-up. On April 13 she started developing flank pain. She did contact her primary care provider and outpatient noncontrast abdominal/pelvic CT showed. She was prescribed Flomax and tramadol for her symptoms and in the specialty appointment was made with Dr. Gonzalez on May 07. Currently patient is complaining of bilateral flank pain with more prominence on the right than the left. She describes her pain as a burning/stabbing sensation. Her pain has been constant but has slightly waxed and waned in intensity. Currently she rates her discomfort 7/10. She has not identified any aggravating or alleviating factors related to the pain. She reports she's been taking her prescribed tramadol without relief and she has also been using ibuprofen with minimal relief. She also reports that she was prescribed Flomax but that had made her nauseated so she is stopped this medication. Associated with her pain she reports she is having chills but no keven fever, intermittently she has nauseated but she has not vomited, she is having urinary burning but has had no increase in urinary frequency or urge and she has noted decreasing urinary output. Patient denies sweats, skin eruptions, skin color changes, upper respiratory tract symptoms, shortness of breath, chest pain, diarrhea, constipation, rectal bleeding, black/tarry stools, hematuria, vaginal bleeding, vaginal discharge. Review of Systems: As noted above in history of present illness. All body systems were reviewed and found to be negative as noted above. Past Medical History: As previously noted and diabetes, unspecified skin disorder and bronchitis. Current Medications: Lisinopril, Ultram, metformin, venlafaxine. Allergies to Medications: Patient denies. Social History: Patient is currently employed; she feels safe in her home environment; she admits to tobacco use and denies alcohol use. Physical Examination: Vital Signs: Date Time Temp Pulse Resp B/P (MAP) Pulse Ox O2 Delivery O2 Flow Rate FiO2 04/29/17 12:06 65 16 112/66 95 Room Air 04/29/17 10:24 36.4 78 20 165/97 95 Room Air GENERAL: 37-year-old female in moderate distress due to pain, nontoxic-appearing , afebrile and hemodynamically stable. NEUROLOGICAL: Awake, alert and oriented to person, place and time. Answering questions appropriately and following commands. Normal gait. Good hand eye coordination. SKIN: Warm, dry and pink. No soft tissue eruptions or trauma noted. HEENT: Atraumatic and normocephalic. PERRLA. Sclera white and conjunctiva pink. Oral cavity moist and pink. Pharynx is nonerythematous or edematous. Speech normal. No lymphadenopathy. Trachea midline. No jugular venous distention. BACK: No tenderness over the bony spine. Bilateral CVA tenderness with right sided prominence. THORAX: Lungs sounds are clear to auscultation and equal bilaterally with symmetrical chest wall. No wheezing, rales or rhonchi. No crepitus, tenderness , subcutaneous air or deformities noted. HEART: Regular rate and rhythm. No gallops, rubs or murmurs are appreciated. ABDOMEN: Obese and soft with mild tenderness in the right and left upper quadrants with prominence on the right. Positive bowel sounds in all quadrants. No guarding, rigidity or organomegaly. EXTREMITIES: Moves all extremities well on command and with purpose. All distal neurovascular statuses are intact and equal bilaterally. ED Course: Patient is assessed as noted above. Laboratory Testing: Test 04/29/17 10:40 04/29/17 10:45 Range/Units Urine Color YELLOW Urine Appearance CLEAR CLEAR Urine pH 6.0 4.5-7.5 Urine Specific [place] 1.019 1.000-1.030 Urine Protein NEG NEG Urine Glucose (UA) NEG NEG Urine Ketones NEG NEG Urine Occult Blood NEG NEG Urine Nitrite NEG NEG Urine Bilirubin NEG NEG Urine Urobilinogen NEG NEG Urine Leukocyte Esterase TRACE NEG Urine WBC (Auto) 1-5 0-5 /hpf Urine RBC (Auto) 0-4 0-4 /hpf Urine Hyaline Casts (Auto) 1-5 0-5 /lpf Urine Epithelial Cells (Auto) >30 0-5 /lpf Urine Bacteria (Auto) NEG NEG White Blood Count 9.14 4.8-10.8 K/uL Red Blood Count 4.71 4.2-5.4 M/uL Hemoglobin 14.5 12.0-16.0 g/dL Hematocrit 42.4 37-47 % Mean Corpuscular Volume 90.0 80-100 fL Mean Corpuscular Hemoglobin 30.8 25-34 pg Mean Corpuscular Hemoglobin Concent 34.2 32-36 g/dl Platelet Count 216 130-400 K/uL Mean Platelet Volume 11.5 7.4-10.4 fL Neutrophils (%) (Auto) 58.7 % Lymphocytes (%) (Auto) 31.9 % Monocytes (%) (Auto) 6.5 % Eosinophils (%) (Auto) 2.0 % Basophils (%) (Auto) 0.7 % Neutrophils # (Auto) 5.37 1.4-6.5 K/uL Lymphocytes # (Auto) 2.92 1.2-3.4 K/uL Monocytes # (Auto) 0.59 0.11-0.59 K/uL Eosinophils # (Auto) 0.18 0-0.5 K/uL Basophils # (Auto) 0.06 0-0.2 K/uL RDW Standard Deviation 41.6 36.4-46.3 fL RDW Coefficient of Variation 12.7 11.5-14.5 % Immature Granulocyte % (Auto) 0.2 % Immature Granulocyte # (Auto) 0.02 0.00-0.02 K/uL Sodium Level 137 136-145 mmol/L Potassium Level 3.7 3.5-5.1 mmol/L Chloride Level 105 98-107 mmol/L Carbon Dioxide Level 26 21-32 mmol/L Anion Gap 6.0 3-11 mmol/L Blood Urea Nitrogen 12 7-18 mg/dl Creatinine 0.72 0.60-1.20 mg/dl Est Creatinine Clear Calc Drug Dose 143.0 ml/min Estimated GFR () 124.9 Estimated GFR (Non- 107.7 BUN/Creatinine Ratio 16.6 10-20 Random Glucose 226 70-99 mg/dl Calcium Level 8.8 8.5-10.1 mg/dl Total Bilirubin 0.3 0.2-1 mg/dl Direct Bilirubin < 0.1 0-0.2 mg/dl Aspartate Amino Transf (AST/SGOT) 29 15-37 U/L Alanine Aminotransferase (ALT/SGPT) 39 12-78 U/L Alkaline Phosphatase 100 45-117 U/L Total Protein 6.8 6.4-8.2 gm/dl Albumin 3.1 3.4-5.0 gm/dl Lipase 96 73-393 U/L Noncontrast Abdominal/Pelvic CT: Was reviewed by myself and read by the radiologist showing bilateral nephrolithiasis redemonstrated when compared to previous CT. For millimeter calculus in the left proximal left ureter unchanged from comparison or obstructive changes. 2 x 2 millimeter calculus within the proximal right ureter with slight migration of approximately 2.2 cm and no obstructive changes. Patient was hydrated with normal saline and she received a total of 10 mg of morphine IV for pain and 4 mg of Zofran per Patient was reassessed multiple times during her stay in the emergency department. Patient's case was reviewed with Dr. Zurita; we agreed on diagnostic approach , treatment, disposition and plan. Patient's case was consulted with case management and Dr. Gonzalez, urology, she reports although she was referred to her for evaluation she is not currently under her care and recommended that we contact the urologist precision crop manager for consultation. Patient's case was consulted with Dr. Jackson, urology; he recommended observation stay for further evaluation and care and possible stent placement. Patient's case was consulted with Ms. Sherin Wu PA-C, [facility], for medical observation/admission. Patient was educated about today's findings. Clinical Impression: Bilateral ureter calculi. Decision-Making: Initially my differential diagnosis I considered additional bilateral urinary calculi, pyelonephritis, pancreatitis, hepatitis and other causes. Disposition and Plan: Patient be brought in the hospital for observation by the [facility]; please see their notes and orders for final disposition and plan.
[2017-04-30] MEDS: SODIUM CHLORIDE 0.9% 1000ML 1,000 ML IV SCH ×2 (07:38→15:31)
[2017-04-30] MEDS: MoRPHine SULFATE 4 MG/ML 1 ML CARP\\VIAL IV PRN ×3 (07:39→18:34)
[2017-04-30 08:01] VITALS: BP 136/78; PULSE 63; TEMP 36.7; O2SAT 94
[2017-04-30 08:16] VITALS: O2SAT 94
--- NOTE | 2017-04-30 08:21 | Progress Note ---
Subjective Date of Service: Apr 30, 2017. (Priya Alfaro CRNP) Subjective Pt evaluation today including: conversation w/ patient, chart review, lab review Voiding: no voiding problems Pt with bilateral ureteral stones. Pt c/o pain 5/10 this morning. Denies n/v. + dysuria. Denies gross hematuria. She is currently afebrile. Labs pending. She denies passing any stones overnight. She has a hx of passing 1 stone 8 years ago. She has never seen a urologist. (Priya Alfaro CRNP) Pt evaluation today including: chart review, lab review, review of studies (Sim Jackson D.Krishna) Problem List Medical Problems: (1) Abdominal wall hernia Status: Chronic (2) Anxiety Status: Chronic (3) Headache Status: Acute (4) Left arm pain Status: Acute (5) Left sided chest pain Status: Acute (6) MORBID OBESITY Status: Chronic (7) Nausea Status: Acute Social History Problems: (1) Diabetes Status: Chronic (Priya Alfaor CRNP) Review of Systems Constitutional: No fever, No chills Respiratory: No shortness of breath Cardiac: No chest pain Abdomen: + pain (flank pain 5/10), No nausea, No vomiting Female : + dysuria, No hematuria Heme: No abnormal bleeding/bruising (Priya Alfaro CRNP) Objective Vital Signs Date Time Temp Pulse Resp B/P (MAP) Pulse Ox O2 Delivery O2 Flow Rate FiO2 04/30/17 08:01 36.7 63 18 136/78 (97) 94 Room Air 04/30/17 00:00 Room Air 04/29/17 23:53 36.6 59 18 119/79 (92) 93 Room Air 04/29/17 16:30 90 Room Air 04/29/17 16:15 36.7 87 20 137/78 (97) 90 Room Air 04/29/17 14:51 64 18 110/63 93 Room Air 04/29/17 13:40 95 Room Air 04/29/17 12:06 65 16 112/66 95 Room Air 04/29/17 10:24 36.4 78 20 165/97 95 Room Air (Priya Alfaro CRNP) Physical Exam General Appearance: no apparent distress, + obese Eyes: normal inspection ENT: hearing grossly normal Neck: no JVD Respiratory/Chest: no respiratory distress, no accessory muscle use Cardiovascular: no JVD Extremities: normal inspection Neurologic/Psychiatric: alert, normal mood/affect, oriented x 3 Skin: normal color (Priya Alfaro CRNP) Laboratory Results Last 24 Hours Test 04/29/17 10:40 04/29/17 10:45 04/29/17 16:30 04/29/17 20:12 Urine Color YELLOW Urine Appearance CLEAR Urine pH 6.0 Urine Specific [place] 1.019 Urine Protein NEG Urine Glucose (UA) NEG Urine Ketones NEG Urine Occult Blood NEG Urine Nitrite NEG Urine Bilirubin NEG Urine Urobilinogen NEG Urine Leukocyte Esterase TRACE Urine WBC (Auto) 1-5 /hpf Urine RBC (Auto) 0-4 /hpf Urine Hyaline Casts (Auto) 1-5 /lpf Urine Epithelial Cells (Auto) >30 /lpf Urine Bacteria (Auto) NEG White Blood Count 9.14 K/uL Red Blood Count 4.71 M/uL Hemoglobin 14.5 g/dL Hematocrit 42.4 % Mean Corpuscular Volume 90.0 fL Mean Corpuscular Hemoglobin 30.8 pg Mean Corpuscular Hemoglobin Concent 34.2 g/dl Platelet Count 216 K/uL Mean Platelet Volume 11.5 fL Neutrophils (%) (Auto) 58.7 % Lymphocytes (%) (Auto) 31.9 % Monocytes (%) (Auto) 6.5 % Eosinophils (%) (Auto) 2.0 % Basophils (%) (Auto) 0.7 % Neutrophils # (Auto) 5.37 K/uL Lymphocytes # (Auto) 2.92 K/uL Monocytes # (Auto) 0.59 K/uL Eosinophils # (Auto) 0.18 K/uL Basophils # (Auto) 0.06 K/uL RDW Standard Deviation 41.6 fL RDW Coefficient of Variation 12.7 % Immature Granulocyte % (Auto) 0.2 % Immature Granulocyte # (Auto) 0.02 K/uL Sodium Level 137 mmol/L Potassium Level 3.7 mmol/L Chloride Level 105 mmol/L Carbon Dioxide Level 26 mmol/L Anion Gap 6.0 mmol/L Blood Urea Nitrogen 12 mg/dl Creatinine 0.72 mg/dl Est Creatinine Clear Calc Drug Dose 143.0 ml/min Estimated GFR () 124.9 Estimated GFR (Non- 107.7 BUN/Creatinine Ratio 16.6 Random Glucose 226 mg/dl Calcium Level 8.8 mg/dl Total Bilirubin 0.3 mg/dl Direct Bilirubin < 0.1 mg/dl Aspartate Amino Transf (AST/SGOT) 29 U/L Alanine Aminotransferase (ALT/SGPT) 39 U/L Alkaline Phosphatase 100 U/L Total Protein 6.8 gm/dl Albumin 3.1 gm/dl Lipase 96 U/L Bedside Glucose 274 mg/dl 293 mg/dl Test 04/30/17 01:15 04/30/17 07:38 04/30/17 07:46 Bedside Glucose 127 mg/dl 177 mg/dl (Priya Alfaro CRNP) Assessment and Plan A/P: Bilateral ureteral stones AFVSS. Tx options discussed with the pt this morning have included a trial of passage with MET vs cysto with bilateral ureteral stent placement. I do not think she is a great candidate for ESWL given her body habitus and the small size of the stones. She prefers a trial of passage today. This is reasonable as no evidence of sepsis or ARF, and the stones are small enough to pass on own. Avoid tamsulosin as she reports this made her sick when she took it 2 weeks ago. Encourage fluids. Strain all urine. Will check a KUB today. Will check a UC&S. Will provide a diet today. NPO after midnight in the event she needs stents placed tomorrow. KUB and labs in AM. Will continue to follow along with primary service. (Priya Alfaro CRNP) Agree with Note from OPERATION RESEARCH ANALYST. Patient tolerating pain and well controlled with oral medication. Hydrating well and tolerating diet. Spoke with patient last night about options. Will continue to observe at this point and assist with spontaneous passage. If any change, worsening of issues, or fevers, could proceed with left vs bilateral stent. (Sim Jackson D.O.)
[2017-04-30 08:24] LABS: HEMOGLOBIN 12.5 g/dL (12.0-16.0); MEAN CELL VOLUME 90.9 fL (80-100); MEAN CORPUSCULAR HEMOGLOBIN 30.7 pg (25-34); MEAN CORPUSCULAR HGB CONC 33.8 g/dl (32-36); MEAN PLATELET VOLUME 11.4 fL (7.4-10.4); PLATELET COUNT 185 K/uL (130-400); RED CELL DISTRIBUTION WIDTH CV 12.8 % (11.5-14.5); RED CELL DISTRIBUTION WIDTH SD 42.5 fL (36.4-46.3)
[2017-04-30] MEDS: NICOTINE 21 MG/24 HR TDSY TD SCH (08:47)
[2017-04-30] MEDS: LISINOPRIL 5 MG TAB PO SCH (08:47)
[2017-04-30 08:48] LABS: CALCIUM 8.2 mg/dl (8.5-10.1); CREATININE 0.51 mg/dl (0.60-1.20); POTASSIUM 3.7 mmol/L (3.5-5.1)
[2017-04-30] MEDS: VENLAFAXINE HCL XR 37.5 MG CAPXR PO SCH (08:48)
[2017-04-30 09:23] LABS: HEMOGLOBIN A1C 9.7 % (4.5-5.6)
--- NOTE | 2017-04-30 09:23 | DIAGNOSTIC IMAGING REPORT ---
KUB CLINICAL HISTORY: bilateral ureteral stones COMPARISON STUDY: CT scan dated 04/29/2017 FINDINGS: There is no pathologic bowel dilatation. There are multiple small bilateral intrarenal calculi. Pelvic basin opacities are felt to represent enteric contents as was visualized the prior CT scan. The proximal ureteral calculi described on the recent CT scan, are difficult to discern with certainty on conventional radiographic imaging. IMPRESSION: Bilateral nephrolithiasis. Electronically signed by: Steve Morel M.D. 04/30/2017 9:22 AM Dictated Date/Time: 04/30/2017 9:19 AM
[2017-04-30] MEDS: INSULIN ASPART 100 UNITS/ML 3 ML PEN SC SCH ×4 (09:38→22:40)
[2017-04-30] MEDS: ACETAMINOPHEN 325 MG TAB PO PRN (13:17)
--- NOTE | 2017-04-30 14:23 | Progress Note ---
Subjective Date of Service: Apr 30, 2017. Subjective Pt evaluation today including: conversation w/ patient, conversation w/ family , physical exam, lab review, review of studies, review of inpatient medication list Saw/examined the patient in room 459 Sitting comfortably States her flank pain is on the R and is around a 5/10 in intensity Problem List Medical Problems: (1) Abdominal wall hernia Status: Chronic (2) Anxiety Status: Chronic (3) Headache Status: Acute (4) Left arm pain Status: Acute (5) Left sided chest pain Status: Acute (6) MORBID OBESITY Status: Chronic (7) Nausea Status: Acute Social History Problems: (1) Diabetes Status: Chronic Review of Systems Constitutional: No fever, No chills, No weakness ENT: + dental problems, + trouble swallowing Respiratory: No shortness of breath Cardiac: No chest pain Abdomen: + pain, No nausea, No vomiting, No diarrhea Medications Current Inpatient Medications Medications (Trade) Dose Ordered Sig/Hussein Route Start Time Stop Time Status Last Admin Dose Admin Acetaminophen (Tylenol Tab) 650 mg Q4H PRN PO 04/29/17 13:30 05/29/17 13:29 04/30/17 13:17 650 MG Ondansetron HCl (Zofran Inj) 4 mg Q6H PRN IV 04/29/17 13:30 05/29/17 13:29 Morphine Sulfate (MoRPHine SULFATE INJ) 3 mg Q3HWA PRN IV 04/29/17 13:45 05/13/17 13:44 04/30/17 12:12 3 MG Sodium Chloride 1,000 ml @ 125 mls/hr Q8H IV 04/29/17 16:00 05/29/17 15:59 04/30/17 07:38 125 MLS/HR Lisinopril (Zestril Tab) 5 mg DAILY PO 04/30/17 08:00 05/30/17 08:59 04/30/17 08:47 5 MG Venlafaxine HCl (effeXOR EXTENDED REL CAP) 37.5 mg DAILY PO 04/30/17 08:00 05/30/17 08:59 04/30/17 08:48 37.5 MG Insulin Aspart (novoLOG ASPART) SLIDING SCALE If C... ACHS SC 04/29/17 16:00 05/29/17 15:59 04/30/17 13:14 9 UNITS Glucose (Glucose 40% Gel) 15-30 GRAMS 15 GRAMS... UD PRN PO 04/29/17 13:45 05/29/17 13:44 Glucose (Glucose Chew Tab) 4-8 Tablets 4 Tabl... UD PRN PO 04/29/17 13:45 05/29/17 13:44 Dextrose (Dextrose 50% 50ML Syringe) 25-50ML OF 50% DW IV FOR... UD PRN IV 04/29/17 13:45 05/29/17 13:44 Glucagon (Glucagon Inj) 1 mg UD PRN SQ 04/29/17 13:45 05/29/17 13:44 Miscellaneous (Iv Fluids Completed) 1 ea PRN PRN N/A 04/29/17 14:15 04/29/18 14:14 Nicotine (Nicoderm Cq 21MG Patch) 1 patch QAM TD 04/30/17 08:00 05/30/17 08:59 04/30/17 08:47 1 PATCH Miscellaneous (Remove Nicoderm Patch) 1 ea HS N/A 04/29/17 21:00 05/29/17 20:59 Ketorolac Tromethamine (Toradol Inj) 30 mg Q6H PRN IV 04/30/17 13:15 05/05/17 13:14 Simvastatin (Zocor Tab) 20 mg PM PO 04/30/17 20:00 05/30/17 19:59 Fish Oil ([place]-3 (Purified Fish Oil) Cap) 1 gm QAM PO 05/01/17 08:00 05/31/17 07:59 Dexamethasone/ Nystatin/ Diphenhydramine HCl/Sucrose/ Microcrystalline Cellulose/Barcode QID PO 04/30/17 13:45 05/30/17 13:44 Objective Vital Signs Date Time Temp Pulse Resp B/P (MAP) Pulse Ox O2 Delivery O2 Flow Rate FiO2 04/30/17 00:00 Room Air 04/29/17 23:53 36.6 59 18 119/79 (92) 93 Room Air 04/29/17 16:30 90 Room Air 04/29/17 16:15 36.7 87 20 137/78 (97) 90 Room Air 04/29/17 14:51 64 18 110/63 93 Room Air 04/29/17 13:40 95 Room Air 04/29/17 12:06 65 16 112/66 95 Room Air 04/29/17 10:24 36.4 78 20 165/97 95 Room Air Physical Exam General Appearance: no apparent distress, + obese Respiratory/Chest: no respiratory distress, no accessory muscle use, + decreased breath sounds Cardiovascular: regular rate, rhythm Abdomen: normal bowel sounds, + tenderness Neurologic/Psychiatric: no motor/sensory deficits, alert, normal mood/affect Laboratory Results Last 24 Hours Test 04/29/17 10:40 04/29/17 10:45 04/29/17 16:30 04/29/17 20:12 Urine Color YELLOW Urine Appearance CLEAR Urine pH 6.0 Urine Specific [place] 1.019 Urine Protein NEG Urine Glucose (UA) NEG Urine Ketones NEG Urine Occult Blood NEG Urine Nitrite NEG Urine Bilirubin NEG Urine Urobilinogen NEG Urine Leukocyte Esterase TRACE Urine WBC (Auto) 1-5 /hpf Urine RBC (Auto) 0-4 /hpf Urine Hyaline Casts (Auto) 1-5 /lpf Urine Epithelial Cells (Auto) >30 /lpf Urine Bacteria (Auto) NEG White Blood Count 9.14 K/uL Red Blood Count 4.71 M/uL Hemoglobin 14.5 g/dL Hematocrit 42.4 % Mean Corpuscular Volume 90.0 fL Mean Corpuscular Hemoglobin 30.8 pg Mean Corpuscular Hemoglobin Concent 34.2 g/dl Platelet Count 216 K/uL Mean Platelet Volume 11.5 fL Neutrophils (%) (Auto) 58.7 % Lymphocytes (%) (Auto) 31.9 % Monocytes (%) (Auto) 6.5 % Eosinophils (%) (Auto) 2.0 % Basophils (%) (Auto) 0.7 % Neutrophils # (Auto) 5.37 K/uL Lymphocytes # (Auto) 2.92 K/uL Monocytes # (Auto) 0.59 K/uL Eosinophils # (Auto) 0.18 K/uL Basophils # (Auto) 0.06 K/uL RDW Standard Deviation 41.6 fL RDW Coefficient of Variation 12.7 % Immature Granulocyte % (Auto) 0.2 % Immature Granulocyte # (Auto) 0.02 K/uL Sodium Level 137 mmol/L Potassium Level 3.7 mmol/L Chloride Level 105 mmol/L Carbon Dioxide Level 26 mmol/L Anion Gap 6.0 mmol/L Blood Urea Nitrogen 12 mg/dl Creatinine 0.72 mg/dl Est Creatinine Clear Calc Drug Dose 143.0 ml/min Estimated GFR () 124.9 Estimated GFR (Non- 107.7 BUN/Creatinine Ratio 16.6 Random Glucose 226 mg/dl Calcium Level 8.8 mg/dl Total Bilirubin 0.3 mg/dl Direct Bilirubin < 0.1 mg/dl Aspartate Amino Transf (AST/SGOT) 29 U/L Alanine Aminotransferase (ALT/SGPT) 39 U/L Alkaline Phosphatase 100 U/L Total Protein 6.8 gm/dl Albumin 3.1 gm/dl Lipase 96 U/L Bedside Glucose 274 mg/dl 293 mg/dl Test 04/30/17 01:15 04/30/17 07:38 Bedside Glucose 127 mg/dl Assessment and Plan This is a 37 year old morbidly obese female with a PMH of uncontrolled diabetes mellitus type 2, tobacco use disorder, depression/anxiety - presents with bilateral nephrolithiasis and renal colic Bilateral Nephrolithiasis Renal Colic presented two weeks prior to this admission with similar symptoms at that time, bilateral stones were found CT during this admission shows progression of L stone, bilateral 4mm stones continue IVFs, morphine PRN appreciate urology input Uncontrolled Diabetes Mellitus type 2 ha1c = 9.7% will need to increase Metformin to 1000mg BID as well as Januvia on discharge continue Lisinopril Morbid Obesity patient counseled on weight loss and carb control she understands possible metabolic syndrome Hypertriglyceridemia patient with triglycerides >400 started on low dose Zocor and fish oil Tobacco Use Disorder counseled on smoking cessation nicotine patch for now states that she failed outpatient Chantix twice FULL CODE
[2017-04-30] MEDS: DEXAMETHASONE CONC SOLN 3.75 MG, NYSTATIN SUSP 30 ML, DiphenhydrAMINE HCL SYRUP 300 MG,... PO SCH ×15 (14:37→22:36)
[2017-04-30 14:54] VITALS: Ht 152.4 cm; Wt 141.4 kg
[2017-04-30 15:25] VITALS: BP 111/74; PULSE 72; TEMP 36.7; O2SAT 94
[2017-04-30] MEDS: KETOROLAC TROMETHAMINE 30 MG/ML VIAL IV PRN ×2 (15:31→22:47)
[2017-04-30 16:05] VITALS: O2SAT 90
[2017-04-30] MEDS ORDERED: MAGIC MOUTHWASH PO SCH (17:00)
[2017-04-30] MEDS ORDERED: NURSING VERBAL MED ORDER ONE (19:45)
[2017-04-30] MEDS ORDERED: SIMVASTATIN 20 MG TAB PO SCH (20:00)
[2017-04-30] MEDS: INSULIN GLARGINE SOLOSTAR 100 UNITS/ML 3 ML PEN SC SCH (22:41)
[2017-05-01 00:45] VITALS: BP 118/75; PULSE 66; TEMP 36.2; O2SAT 93
[2017-05-01] MEDS: SODIUM CHLORIDE 0.9% 1000ML 1,000 ML IV SCH ×2 (01:35→09:54)
[2017-05-01] MEDS ORDERED: OMEGA-3 (PURIFIED FISH OIL) 1 GM CAP PO SCH (08:00)
[2017-05-01 08:06] VITALS: BP 137/90; PULSE 75; TEMP 36.8; O2SAT 96
[2017-05-01 09:00] LABS: HEMATOCRIT 37.9 % (37-47); HEMOGLOBIN 12.4 g/dL (12.0-16.0); MEAN CELL VOLUME 91.1 fL (80-100); MEAN CORPUSCULAR HEMOGLOBIN 29.8 pg (25-34); MEAN CORPUSCULAR HGB CONC 32.7 g/dl (32-36); MEAN PLATELET VOLUME 11.5 fL (7.4-10.4); PLATELET COUNT 180 K/uL (130-400); RED CELL DISTRIBUTION WIDTH CV 12.6 % (11.5-14.5); RED CELL DISTRIBUTION WIDTH SD 42.4 fL (36.4-46.3)
[2017-05-01] MEDS ORDERED: OXYCODONE/ACETAMINOPHEN 7.5-325 TAB PO PRN (09:00)
--- NOTE | 2017-05-01 09:27 | DIAGNOSTIC IMAGING REPORT ---
KUB CLINICAL HISTORY: BILATERAL URETERAL STONES COMPARISON STUDY: 04/30/2017 FINDINGS: Bilateral renal nephrocalcinosis is again noted. The paravertebral tissues are again obscured effectively by extensive overlying bowel content. Ureteral calculi are partially impossible to ascertain given the amount of overlap artifact present. Bowel pattern remains nonobstructive. IMPRESSION: Bilateral nephrocalcinosis unchanged. Ureteral calculi cannot be confirmed or excluded due to overlap artifact. The above report was generated using voice recognition software. It may contain grammatical, syntax or spelling errors. Electronically signed by: Jacoby Tejeda M.D. 05/01/2017 9:25 AM Dictated Date/Time: 05/01/2017 9:20 AM
[2017-05-01 09:32] LABS: CALCIUM 8.3 mg/dl (8.5-10.1); CREATININE 0.62 mg/dl (0.60-1.20); POTASSIUM 4.1 mmol/L (3.5-5.1)
[2017-05-01] MEDS: VENLAFAXINE HCL XR 37.5 MG CAPXR PO SCH (09:49)
[2017-05-01] MEDS: NICOTINE 21 MG/24 HR TDSY TD SCH (09:50)
[2017-05-01] MEDS: LISINOPRIL 5 MG TAB PO SCH (09:50)
[2017-05-01] MEDS: DEXAMETHASONE CONC SOLN 3.75 MG, NYSTATIN SUSP 30 ML, DiphenhydrAMINE HCL SYRUP 300 MG,... PO SCH ×10 (09:54→12:49)
--- NOTE | 2017-05-01 09:55 | Progress Note ---
Subjective Date of Service: May 01, 2017. Subjective Pt evaluation today including: conversation w/ patient, chart review, lab review Voiding: no voiding problems 37 yo female with bilateral ureteral stones. Unable to visualize stones on KUB from yesterday or this morning. Denies passing any stones overnight. White count and Cr are normal. She is afebrile. UC&S is negative. Pt continues to have some intermittent pain. Denies n/v. + dysuria. Denies gross hematuria. Problem List Medical Problems: (1) Abdominal wall hernia Status: Chronic (2) Anxiety Status: Chronic (3) Headache Status: Acute (4) Left arm pain Status: Acute (5) Left sided chest pain Status: Acute (6) MORBID OBESITY Status: Chronic (7) Nausea Status: Acute Social History Problems: (1) Diabetes Status: Chronic Review of Systems Constitutional: No fever, No chills Respiratory: No shortness of breath Cardiac: No chest pain Abdomen: No pain, No nausea, No vomiting Female : + dysuria, No hematuria Heme: No abnormal bleeding/bruising Objective Vital Signs Date Time Temp Pulse Resp B/P (MAP) Pulse Ox O2 Delivery O2 Flow Rate FiO2 05/01/17 08:06 36.8 75 20 137/90 (106) 96 05/01/17 00:45 36.2 66 16 118/75 (89) 93 Room Air 05/01/17 00:00 Room Air 04/30/17 16:05 90 Room Air 04/30/17 15:25 36.7 72 18 111/74 (86) 94 Room Air Physical Exam General Appearance: no apparent distress, + obese (morbidly) Eyes: normal inspection ENT: hearing grossly normal Neck: no JVD Respiratory/Chest: no respiratory distress, no accessory muscle use Cardiovascular: no JVD Extremities: normal inspection Neurologic/Psychiatric: alert, normal mood/affect, oriented x 3 Skin: normal color Laboratory Results Last 24 Hours Test 04/30/17 11:44 04/30/17 16:40 04/30/17 20:12 05/01/17 08:20 Bedside Glucose 235 mg/dl 185 mg/dl 236 mg/dl White Blood Count 7.20 K/uL Red Blood Count 4.16 M/uL Hemoglobin 12.4 g/dL Hematocrit 37.9 % Mean Corpuscular Volume 91.1 fL Mean Corpuscular Hemoglobin 29.8 pg Mean Corpuscular Hemoglobin Concent 32.7 g/dl RDW Standard Deviation 42.4 fL RDW Coefficient of Variation 12.6 % Platelet Count 180 K/uL Mean Platelet Volume 11.5 fL Sodium Level 140 mmol/L Potassium Level 4.1 mmol/L Chloride Level 109 mmol/L Carbon Dioxide Level 25 mmol/L Anion Gap 7.0 mmol/L Blood Urea Nitrogen 13 mg/dl Creatinine 0.62 mg/dl Est Creatinine Clear Calc Drug Dose 166.1 ml/min Estimated GFR () 134.5 Estimated GFR (Non- 116.0 BUN/Creatinine Ratio 21.1 Random Glucose 185 mg/dl Fasting Insulin 20.3 mU/L Calcium Level 8.3 mg/dl Assessment and Plan A/P: Bilateral ureteral stones AFVSS. Tx options discussed with the pt this morning have included a trial of passage with MET vs cysto with bilateral ureteral stent placement today. She is not a candidate for ESWL given her body habitus and inability to visualize stones on KUB. She prefers a trial of passage at home as pain is manageable. This is reasonable as no evidence of sepsis or ARF, and the stones are small enough to pass on own. Avoid tamsulosin as she reports this made her sick when she took it 2 weeks ago. Encourage fluids. Strain all urine. Will provide a diet today. Will order her Percocet for pain control today. If pain manageable with Percocet , she may be discharged home today for a trial of passage. Will plan for outpatient f/u in 1-2 weeks with repeating imaging. Return to ER for fever > 101.5F or severe pain. Will arrange for outpatient f/u. Discharge planning: home
[2017-05-01] MEDS: INSULIN GLARGINE SOLOSTAR 100 UNITS/ML 3 ML PEN SC SCH (10:15)
[2017-05-01] MEDS: INSULIN ASPART 100 UNITS/ML 3 ML PEN SC SCH ×2 (10:18→12:58)
[2017-05-01] MEDS ORDERED: DOCUSATE SODIUM 100 MG CAP PO ONE (11:15)
[2017-05-01] MEDS ORDERED: BISACODYL 5 MG TABEC PO ONE (11:15)
[2017-05-01] MEDS ORDERED: AMOX500T3 PO (12:28)
[2017-05-01] MEDS ORDERED: OXYC7.5T62 PO (12:28)
[2017-05-01] MEDS ORDERED: MBXC PO (12:28)
[2017-05-01] MEDS ORDERED: ZCR20 PO (12:28)
[2017-05-01] MEDS ORDERED: CLC100 PO (12:28)
[2017-05-01] MEDS ORDERED: SITA1TAB21 PO (12:28)
[2017-05-01] MEDS ORDERED: OMG3 PO (12:28)
--- NOTE | 2017-05-01 14:26 | Progress Note ---
Subjective Date of Service: May 01, 2017. Subjective Pt evaluation today including: conversation w/ patient, physical exam, lab review, review of studies, review of inpatient medication list Saw/examined the patient in room 459 She is resting comfortably; she is okay for discharge Problem List Medical Problems: (1) Abdominal wall hernia Status: Chronic (2) Anxiety Status: Chronic (3) Headache Status: Acute (4) Left arm pain Status: Acute (5) Left sided chest pain Status: Acute (6) MORBID OBESITY Status: Chronic (7) Nausea Status: Acute Social History Problems: (1) Diabetes Status: Chronic Review of Systems Constitutional: No weakness Respiratory: No shortness of breath Cardiac: No chest pain Abdomen: No pain (improved), No nausea, No vomiting, No diarrhea Female : No dysuria, No urinary frequency, No hematuria Medications Current Inpatient Medications Medications (Trade) Dose Ordered Sig/Hussein Route Start Time Stop Time Status Last Admin Dose Admin Acetaminophen (Tylenol Tab) 650 mg Q4H PRN PO 04/29/17 13:30 05/29/17 13:29 04/30/17 13:17 650 MG Ondansetron HCl (Zofran Inj) 4 mg Q6H PRN IV 04/29/17 13:30 05/29/17 13:29 Sodium Chloride 1,000 ml @ 125 mls/hr Q8H IV 04/29/17 16:00 05/29/17 15:59 05/01/17 09:54 125 MLS/HR Lisinopril (Zestril Tab) 5 mg DAILY PO 04/30/17 08:00 05/30/17 08:59 05/01/17 09:50 5 MG Venlafaxine HCl (effeXOR EXTENDED REL CAP) 37.5 mg DAILY PO 04/30/17 08:00 05/30/17 08:59 05/01/17 09:49 37.5 MG Insulin Aspart (novoLOG ASPART) SLIDING SCALE If C... ACHS SC 04/29/17 16:00 05/29/17 15:59 05/01/17 12:58 10 UNITS Glucose (Glucose 40% Gel) 15-30 GRAMS 15 GRAMS... UD PRN PO 04/29/17 13:45 05/29/17 13:44 Glucose (Glucose Chew Tab) 4-8 Tablets 4 Tabl... UD PRN PO 04/29/17 13:45 05/29/17 13:44 Dextrose (Dextrose 50% 50ML Syringe) 25-50ML OF 50% DW IV FOR... UD PRN IV 04/29/17 13:45 05/29/17 13:44 Glucagon (Glucagon Inj) 1 mg UD PRN SQ 04/29/17 13:45 05/29/17 13:44 Miscellaneous (Iv Fluids Completed) 1 ea PRN PRN N/A 04/29/17 14:15 04/29/18 14:14 Nicotine (Nicoderm Cq 21MG Patch) 1 patch QAM TD 04/30/17 08:00 05/30/17 08:59 05/01/17 09:50 1 PATCH Ketorolac Tromethamine (Toradol Inj) 30 mg Q6H PRN IV 04/30/17 13:15 05/05/17 13:14 04/30/17 22:47 30 MG Simvastatin (Zocor Tab) 20 mg PM PO 04/30/17 20:00 05/30/17 19:59 04/30/17 22:38 20 MG Fish Oil ([place]-3 (Purified Fish Oil) Cap) 1 gm QAM PO 05/01/17 08:00 05/31/17 07:59 05/01/17 09:49 1 GM Dexamethasone/ Nystatin/ Diphenhydramine HCl/Sucrose/ Microcrystalline Cellulose/Barcode QID PO 04/30/17 13:45 05/30/17 13:44 05/01/17 12:49 5 ML Insulin Glargine (Lantus Solostar Pen) 10 units BID SC 04/30/17 20:00 05/30/17 19:59 05/01/17 10:15 10 UNITS Oxycodone/ Acetaminophen (Percocet 7.5-325MG Tab) 1-2 tabs PO q4-6hrs PRN ... Q4H PRN PO 05/01/17 09:00 05/15/17 08:59 05/01/17 12:55 2 TAB Docusate Sodium (coLACE CAP) 100 mg BID PO 05/01/17 20:00 05/31/17 19:59 Objective Vital Signs Date Time Temp Pulse Resp B/P (MAP) Pulse Ox O2 Delivery O2 Flow Rate FiO2 05/01/17 08:06 36.8 75 20 137/90 (106) 96 05/01/17 08:00 Room Air 05/01/17 00:45 36.2 66 16 118/75 (89) 93 Room Air 05/01/17 00:00 Room Air 04/30/17 16:05 90 Room Air 04/30/17 15:25 36.7 72 18 111/74 (86) 94 Room Air Physical Exam General Appearance: no apparent distress, + obese ENT: + pertinent finding (tongue with sore on the L lateral side) Respiratory/Chest: no respiratory distress, no accessory muscle use Cardiovascular: regular rate, rhythm Laboratory Results Last 24 Hours Test 04/30/17 16:40 04/30/17 20:12 05/01/17 07:59 05/01/17 08:20 Bedside Glucose 185 mg/dl 236 mg/dl 189 mg/dl White Blood Count 7.20 K/uL Red Blood Count 4.16 M/uL Hemoglobin 12.4 g/dL Hematocrit 37.9 % Mean Corpuscular Volume 91.1 fL Mean Corpuscular Hemoglobin 29.8 pg Mean Corpuscular Hemoglobin Concent 32.7 g/dl RDW Standard Deviation 42.4 fL RDW Coefficient of Variation 12.6 % Platelet Count 180 K/uL Mean Platelet Volume 11.5 fL Sodium Level 140 mmol/L Potassium Level 4.1 mmol/L Chloride Level 109 mmol/L Carbon Dioxide Level 25 mmol/L Anion Gap 7.0 mmol/L Blood Urea Nitrogen 13 mg/dl Creatinine 0.62 mg/dl Est Creatinine Clear Calc Drug Dose 166.1 ml/min Estimated GFR () 134.5 Estimated GFR (Non- 116.0 BUN/Creatinine Ratio 21.1 Random Glucose 185 mg/dl Fasting Insulin 20.3 mU/L Calcium Level 8.3 mg/dl Test 05/01/17 11:11 Bedside Glucose 233 mg/dl Assessment and Plan This is a 37 year old morbidly obese female with a PMH of uncontrolled diabetes mellitus type 2, tobacco use disorder, depression/anxiety - presents with bilateral nephrolithiasis and renal colic Bilateral Nephrolithiasis Renal Colic 05/01 will d/c home today on Percocet outpatient voiding; outpatient urology f/u 04/30 presented two weeks prior to this admission with similar symptoms at that time, bilateral stones were found CT during this admission shows progression of L stone, bilateral 4mm stones continue IVFs, morphine PRN appreciate urology input Uncontrolled Diabetes Mellitus type 2 05/01 will d/c on Janumet XR d/c on Lisinopril 04/30 ha1c = 9.7% will need to increase Metformin to 1000mg BID as well as Januvia on discharge continue Lisinopril Morbid Obesity patient counseled on weight loss and carb control possible metabolic syndrome Hypertriglyceridemia patient with triglycerides >400 started on low dose Zocor and fish oil Tobacco Use Disorder counseled on smoking cessation nicotine patch for now states that she failed outpatient Chantix twice Tooth Pain, possible Oral Infection will d/c with amoxicillin can use magic mouthwash as outpatient tongue sore also present, likely from repeatedly rubbing against the broken tooth to have outpatient f/u with dentist FULL CODE Discharge planning: home
[2017-05-01 14:27] VITALS: BP 138/83; PULSE 65; TEMP 36.6; O2SAT 94
--- NOTE | 2017-05-01 14:42 | Discharge Instructions ---
Discharge Instructions Date of Service May 01, 2017. Admission Reason for Admission: Kidney Calculi Discharge Discharge Diagnosis / Problem: Bilateral kidney stones; uncontrolled diabetes Discharge Goals Goal(s): Decrease discomfort, Improve function, Diagnostic testing, Therapeutic intervention Activity Recommendations Activity Limitations: resume your previous activity . Instructions / Follow-Up Instructions / Follow-Up Please follow-up with Dr. Herrera on May 06 at 10:45AM * You will be sent home with Percocet for pain; please drink plenty of fluids * Follow-up with urology in 1-2 weeks * Your diabetes is very uncontrolled (Ha1c = 9.7%) - I will prescribed Janumet XR - take one tablet once a day; your primary care physician will recheck Ha1c in 3 months * Your triglycerides (type of cholesterol) is >400 - you will be started on Zocor and fish oil tablets - please take these every night * You should stop smoking - please talk to your primary care doctor about trying to stop * You will need to lose weight; this will help with your diabetes and cholesterol - please talk to your primary care doctor for more help with this * For your dental infection - you will be given amoxicillin (antibiotic) - you must see a dentist as an outpatient; you can also use the prescribed mouthwash to help Current Hospital Diet Patient's current hospital diet: Diabetes Type 2 Diet Discharge Diet Recommended Diet: Diabetes Type 2 Diet Pending Studies Studies pending at discharge: no Laboratory Results Hemoglobin A1c Test 04/30/17 07:38 Range/Units Estimated Average Glucose 232 mg/dl Hemoglobin A1c 9.7 H 4.5-5.6 % Lipid Panel Test 04/30/17 07:38 Range/Units Triglycerides Level 410 H 0-150 mg/dl Cholesterol Level 143 0-200 mg/dl HDL Cholesterol 23 mg/dl Cholesterol/HDL Ratio 6.2 LDL Cholesterol, Calculated mg/dl Medical Emergencies . Who to Call and When: Medical Emergencies: If at any time you feel your situation is an emergency, please call 911 immediately. . Non-Emergent Contact Non-Emergency issues call your: Primary Care Provider, Urologist Call Non-Emergent contact if: you have a fever, temperature is above 101.5, your pain is not controlled . . "Provider Documentation" section prepared by Kalen Suazo. . VTE Core Measure Inpt VTE Proph given/why not?: [facility] Monitoring Program Search Results: patient reviewed within database, no issues identified
--- NOTE | 2017-05-01 14:48 | Discharge Summary ---
Discharge Summary Date of Service May 01, 2017. Discharge Summary Admission Date: Apr 29, 2017 at 13:30 Discharge Date: May 01, 2017 Discharge Disposition: Home Principal Diagnosis: Bilateral Nephrolithiasis Morbid Obesity Uncontrolled Diabetes Mellitus type 2 Hypertriglyceridemia likely Metabolic Syndrome Tobacco Use Disorder COPD/Asthma Noncompliance Dental Infection Medication Reconciliation New Medications: Amoxicillin (Amoxil) 500 Mg Tab 1 TAB PO BID for 10 Days, #20 TAB Magic Swizzle (Magic Swizzle - SUCRALFA/ALUM/MAG/DIPHEN/LIDO) 240 Ml Susp 3-4 TSP PO ACHS, #240 ML 100ml Sucralfate 50ml Maalox 50ml Diphenhydramine 40ml 2% Aq. Lidocaine Swish and Swallow Sitagliptin-Metformin Hcl (Janumet Xr) 1 Tab Tab 1 TAB PO DAILY for 30 Days, #30 TABS 3 Refills Docusate Sodium (Docusate Sodium) 100 Mg Cap 100 MG PO BID for 10 Days, #20 CAP Fish Oil (Fish Oil) 1 Gm Cap 1 GM PO QAM for 30 Days, #30 CAP Oxycodone/Acetaminophen 7.5MG/325MG (Endocet 7.5MG/325MG) 1 Tab Tab 1 TAB PO Q6 PRN for Pain for 5 Days, #20 TAB Simvastatin (Simvastatin) 20 Mg Tab 20 MG PO PM for 30 Days, #30 TAB Continued Medications: Lisinopril (Lisinopril) 5 Mg Tab 1 TAB PO DAILY Venlafaxine Hcl (Venlafaxine Extended Rel) 37.5 Mg Cap 37.5 MG PO DAILY Discontinued Medications: Metformin HCl (Metformin HCl) 500 Mg Tab 500 MG PO BID Tramadol (Ultram) 50 Mg Tab 50 MG PO Q6H PRN for Pain, TAB Admission Information HPI (per Admitting provider): This is a 37yo F with a PMH of DM II, tobacco use disorder and h/o kidney stones who presents with worsening R flank pain x 2 weeks. Describes pain along R and L flank with radiation to lower back. Associated dysuria and nausea. Patient saw PCP last week and had an out-patient CT abd pelvis performed which showed presence of multiple non-obstructing stones with the largest at 8 x 2 mm in the proximal R ureter. Also had a 4mm stone in proximal L ureter. UA and urine culture without infection. Was sent home with tramadol and tamsulosin. Patient experienced nausea while on tamsulosin, so she stopped taking it after a few days. Has continued to have worsening R flank pain over the past few days as well as associated dysuria and nausea. Denies fever, chills, CP, SOB, vomiting, hematuria, pyuria, oliguria, diarrhea or constipation. Last episode of kidney stones was 3 years ago and states that stones passed within a day of onset of symptoms. Physical Exam (per Admitting): General Appearance: no apparent distress, + obese Head: normocephalic, atraumatic Eyes: normal inspection, PERRL, sclerae normal ENT: normal ENT inspection, hearing grossly normal, pharynx normal Neck: supple, thyroid normal, trachea midline Respiratory/Chest: chest non-tender, lungs clear, normal breath sounds, no respiratory distress, no accessory muscle use Cardiovascular: regular rate, rhythm, no murmur, normal peripheral pulses Abdomen/GI: normal bowel sounds, soft, no organomegaly, + tenderness (R>L flank pain ) Back: + left CVA tenderness, + right CVA tenderness Extremities/Musculoskelatal: normal inspection, no calf tenderness, no pedal edema Neurologic/Psych: no motor/sensory deficits, alert, normal mood/affect, oriented x 3 Skin: normal color, warm/dry Hospital Course This is a 37 year old morbidly obese female with a PMH of uncontrolled diabetes mellitus type 2, tobacco use disorder, depression/anxiety - presents with bilateral nephrolithiasis and renal colic Bilateral Nephrolithiasis Renal Colic 05/01 will d/c home today on Percocet outpatient voiding; outpatient urology f/u 04/30 presented two weeks prior to this admission with similar symptoms at that time, bilateral stones were found CT during this admission shows progression of L stone, bilateral 4mm stones continue IVFs, morphine PRN appreciate urology input Uncontrolled Diabetes Mellitus type 2 05/01 will d/c on Janumet XR d/c on Lisinopril 04/30 ha1c = 9.7% will need to increase Metformin to 1000mg BID as well as Januvia on discharge continue Lisinopril Morbid Obesity patient counseled on weight loss and carb control possible metabolic syndrome Hypertriglyceridemia patient with triglycerides >400 started on low dose Zocor and fish oil Tobacco Use Disorder counseled on smoking cessation nicotine patch for now states that she failed outpatient Chantix twice Tooth Pain, possible Oral Infection will d/c with amoxicillin can use magic mouthwash as outpatient tongue sore also present, likely from repeatedly rubbing against the broken tooth to have outpatient f/u with dentist FULL CODE Discharge planning: home Total time spent on discharge = 45 minutes This includes examination of the patient, discharge planning, medication reconciliation, and communication with other providers. Discharge Instructions Please follow-up with Dr. Herrera on May 06 at 10:45AM * You will be sent home with Percocet for pain; please drink plenty of fluids * Follow-up with urology in 1-2 weeks * Your diabetes is very uncontrolled (Ha1c = 9.7%) - I will prescribed Janumet XR - take one tablet once a day; your primary care physician will recheck Ha1c in 3 months * Your triglycerides (type of cholesterol) is >400 - you will be started on Zocor and fish oil tablets - please take these every night * You should stop smoking - please talk to your primary care doctor about trying to stop * You will need to lose weight; this will help with your diabetes and cholesterol - please talk to your primary care doctor for more help with this * For your dental infection - you will be given amoxicillin (antibiotic) - you must see a dentist as an outpatient; you can also use the prescribed mouthwash to help
[2017-05-01 15:09] VITALS: BP 138/83; PULSE 65; TEMP 36.6; O2SAT 94
[2017-05-01] MEDS ORDERED: DOCUSATE SODIUM 100 MG CAP PO SCH (20:00)
[2017-05-02] MEDS ORDERED: LANC-393 EXT (12:56)
[2017-05-02] MEDS ORDERED: GLUC1TES34 EX (12:56)
== END 2017-05-01 16:19 | disposition home or self-care (01) ==
LOC: C.EDB 10:16 → C.MS4W 13:30 → EDBEDREQ 13:47 → ENRESERV 14:35
PROVIDERS: ADMIT Internal Medicine; ATTEND Family Medicine
DX: N20.0 Calculus of kidney (principal); E66.01 Morbid (severe) obesity due to excess calories; E11.9 Type 2 diabetes mellitus without complications; E78.1 Pure hyperglyceridemia; F17.200 Nicotine dependence, unspecified, uncomplicated; J44.9 Chronic obstructive pulmonary disease, unspecified; J45.909 Unspecified asthma, uncomplicated; Z91.19 Patient's noncompliance with other medical treatment and regimen; K04.7 Periapical abscess without sinus; Z79.4 Long term (current) use of insulin; Z79.899 Other long term (current) drug therapy; Z83.3 Family history of diabetes mellitus; Z80.9 Family history of malignant neoplasm, unspecified; Z82.49 Family history of ischemic heart disease and other diseases of the circulatory system; Z84.1 Family history of disorders of kidney and ureter

== ENCOUNTER → 2017-05-07 | Outpatient (CLI) | payer BC ==
[~2017-05-07] MED LIST changes: +AMOX500T3 PO; +AMX500 PO; +CLC100 PO; +DOCU100C31 PO; -GLC500 PO; +GLUC1TES34 EX; +IPRASOL4 INH; +LANC-393 EXT; +LSN5 PO; +MBXC PO; +OMG3 PO; +OXYC-57 PO; +OXYC7.5T62 PO; +SIMV20TA2 PO; +SITA1TAB21 PO; +SITA50TA5 PO; +ZCR20 PO
--- NOTE | 2017-05-07 12:36 | DIAGNOSTIC IMAGING REPORT ---
ABDOMEN AND PELVIS CT WITHOUT CONTRAST CT DOSE: 1760.06 mGy.cm HISTORY: Nephrolithiasis. Right-sided abdominal pain. TECHNIQUE: Multiaxial CT images of the abdomen and pelvis were performed without the use of intravenous and oral contrast according to the standard department stone protocol. A dose lowering technique was utilized adhering to the principles of ALARA. COMPARISON STUDY: Abdomen and pelvis CT 04/29/2017. FINDINGS: The lung bases are clear. No fractures within the visualized osseous structures. Hepatic steatosis. The unenhanced gallbladder, spleen, adrenal glands, and pancreas are unremarkable. No retroperitoneal lymphadenopathy. The uterus, ovaries, and bladder are unremarkable. Multiple fat-containing ventral hernias are again noted. The largest within the left anterior pelvis measures 9 cm. A diverticulum of the proximal sigmoid colon is seen at the neck of this hernia. Normal appendix. No bowel wall thickening or obstruction. Multiple punctate bilateral renal calculi are again noted. No change in the bilateral ureteropelvic junction stones. No associated hydronephrosis to suggest an obstruction. IMPRESSION: 1. No change in the bilateral nonobstructing ureteropelvic junction stones. No hydronephrosis. 2. Bilateral nephrolithiasis. 3. Hepatic steatosis. 4. Multiple fat-containing ventral hernias are again noted. Electronically signed by: Joe Choi M.D. 05/07/2017 12:35 PM Dictated Date/Time: 05/07/2017 12:21 PM
== END | disposition home or self-care (01) ==
LOC: C.CTS 12:05
PROVIDERS: ATTEND Nurse Practitioner Adult Health
DX: N20.0 Calculus of kidney (principal); K76.0 Fatty (change of) liver, not elsewhere classified; K43.9 Ventral hernia without obstruction or gangrene

== ENCOUNTER 2017-05-13 16:09 | Emergency (ER) | payer BC ==
[~2017-05-13] VITALS: Ht 152.4 cm; Wt 140.5 kg
[~2017-05-13 16:09] MED LIST changes: -AMOX500T3 PO; -CLC100 PO; -GLUC1TES34 EX; -LANC-393 EXT; -MBXC PO; -OMG3 PO; -OXYC7.5T62 PO; -SITA1TAB21 PO; -VENL37.593 PO; -ZCR20 PO
[2017-05-13 16:19] VITALS: TEMP 36.8; Ht 152.4 cm; Wt 140.5 kg
[2017-05-13] MEDS ORDERED: VENL37.593 PO (17:44)
[2017-05-13] MEDS ORDERED: MoRPHine SULFATE 10 MG/ML CARP/VIAL IV STA (18:29)
[2017-05-13] MEDS ORDERED: SODIUM CHLORIDE 0.9% 1000ML 1,000 ML IV ONE (18:30)
[2017-05-13] MEDS ORDERED: ONDANSETRON INJ 2 MG/ML 2 ML VIAL IV PRN (18:30)
[2017-05-13 18:47] LABS: BASO % 0.4 %; BASO ABS # 0.05 K/uL (0-0.2); EOS % 1.9 %; EOS ABS # 0.25 K/uL (0-0.5); HEMATOCRIT 41.9 % (37-47); HEMOGLOBIN 14.1 g/dL (12.0-16.0); IG# 0.03 K/uL (0.00-0.02); LYMPH % 26.8 %; MEAN CELL VOLUME 90.9 fL (80-100); MEAN CORPUSCULAR HEMOGLOBIN 30.6 pg (25-34); MEAN CORPUSCULAR HGB CONC 33.7 g/dl (32-36); MEAN PLATELET VOLUME 11.4 fL (7.4-10.4); MONO % 4.4 %; MONO ABS # 0.59 K/uL (0.11-0.59); NEUT % 66.3 %; NEUT ABS # 8.92 K/uL (1.4-6.5); PLATELET COUNT 246 K/uL (130-400); WHITE BLOOD COUNT 13.44 K/uL (4.8-10.8)
[2017-05-13 19:07] LABS: ALBUMIN 3.1 gm/dl (3.4-5.0); CALCIUM 9.3 mg/dl (8.5-10.1); CREATININE 0.79 mg/dl (0.60-1.20); POTASSIUM 3.6 mmol/L (3.5-5.1)
--- NOTE | 2017-05-13 19:14 | DIAGNOSTIC IMAGING REPORT ---
KUB HISTORY: flank pain R>L hx stones COMPARISON: Abdomen and pelvis CT 05/07/2017. FINDINGS: The bowel gas pattern is unremarkable. There are no dilated loops of small bowel to suggest an obstruction. No change in the multiple punctate bilateral renal calculi. Stable 7 mm stone within the right ureteropelvic junction overlying the right transverse process. There is also a stable 7 mm stone within the left ureteropelvic junction. No additional ureteral calculi are bladder catheter identified. No pneumoperitoneum or pneumatosis. IMPRESSION: 1. Stable bilateral ureteropelvic junction stones. These did not result in hydronephrosis on the recent abdomen and pelvis CT. 2. Stable bilateral nephrolithiasis. Electronically signed by: Joe Choi M.D. 05/13/2017 7:13 PM Dictated Date/Time: 05/13/2017 7:10 PM
--- NOTE | 2017-05-13 20:14 | DIAGNOSTIC IMAGING REPORT ---
ABDOMINAL ULTRASOUND, RIGHT UPPER QUADRANT HISTORY: Right upper quadrant abdominal pain.. COMPARISON: Abdomen and pelvis CT 05/07/2017. FINDINGS: Pancreas: Not well visualized due to overlying bowel gas. Liver: The liver is echogenic consistent with fatty change. The liver is enlarged measuring 23 cm in length. Gallbladder: No gallbladder wall thickening. No gallstones. CBD: 4 mm. Right kidney: No hydronephrosis. IMPRESSION: 1. Hepatic steatosis. 2. Normal gallbladder. No gallstones. 3. No right-sided hydronephrosis. Electronically signed by: Joe Choi M.D. 05/13/2017 8:13 PM Dictated Date/Time: 05/13/2017 8:12 PM
[2017-05-13] MEDS ORDERED: ZCR40 PO (20:41)
[2017-05-13] MEDS ORDERED: SITA1TAB21 PO (20:41)
[2017-05-13] MEDS ORDERED: ASPI-461 PO (20:41)
[2017-05-13] MEDS ORDERED: IPRASOL4 NEB (20:41)
--- NOTE | 2017-05-13 20:46 | EMERGENCY ROOM VISIT NOTE ---
History First contact with patient: 18:18 Chief Complaint: KIDNEY STONE Stated Complaint: RT KIDNEY STONE PAIN, NAUSEA, DIZZY History of Present Illness The patient is a 37 year old female who presents to the Emergency Room with complaints of bilateral flank pain right greater than left that has been going on for approximately 1 month. The patient reports being admitted here at the beginning of the month. She was diagnosed with kidney stones. She is scheduled for a lithotripsy and stent placement in 2 weeks. She has been taking Percocet at home without relief. She has had dysuria. She denies any hematuria. No fever or chills. She has had nausea without vomiting. No changes in bowel movements. Review of Systems 10 system review performed and negative unless noted in HPI or below Past Medical/Surgical History Medical Problems: (1) Abdominal wall hernia (2) Achilles tendonitis, bilateral (3) Acute pharyngitis (4) Anxiety (5) Anxiety (6) Bronchospasm with bronchitis, acute (7) Bronchospasm with bronchitis, acute (8) CALCULUS OF URETER (9) Cellulitis (10) Cellulitis, abdominal wall (11) Chest pain (12) Diabetes mellitus type II, uncontrolled (13) Elevated blood pressure reading (14) Irritation of eye (15) Kidney calculi (16) MORBID OBESITY (17) Muscle strain of right upper extremity (18) Plantar fasciitis of left foot (19) Skin ulceration (20) Strain of right trapezius muscle (21) Tobacco use disorder (22) Vaginal bleeding Surgical Problems: (1) Previous section Social History Problems: (1) Diabetes Family History Diabetes mellitus FH: cancer Hypertension Kidney disease Kidney stones Social History Smoking Status: Current Every Day Smoker Alcohol Use: occasionally Drug Use: none Marital Status: Housing Status: lives with family Occupation Status: employed Current/Historical Medications Scheduled Aspirin (Aspirin), 81 MG PO DAILY Lisinopril (Lisinopril), 5 MG PO QAM Ondasetron Odt (Zofran Odt), 4 MG SL Q6H Simvastatin (Simvastatin), 20 MG PO QPM Sitagliptin-Metformin Hcl (Janumet Xr), 1 TAB PO QAM Sulfa/Trimethoprim (Bactrim Ds 800MG/160MG), 1 TAB PO BID Venlafaxine Hcl (Venlafaxine Extended Rel), 37.5 MG PO QAM Scheduled PRN Ipratropium-Albuterol (Duoneb), 3 ML NEB Q4H PRN for SOB/Wheezing Oxycodone Ir (Roxicodone Ir), 1-2 TAB PO Q4H PRN for Pain Oxycodone/Acetaminophen 5MG/325MG (Percocet 5MG/325MG), 1 TABLET PO Q8 PRN for Severe Pain Physical Exam Vital Signs Date Time Temp Pulse Resp B/P (MAP) Pulse Ox O2 Delivery O2 Flow Rate FiO2 05/13/17 22:19 78 18 121/74 95 Room Air 05/13/17 20:15 80 18 134/80 98 Room Air 05/13/17 18:47 59 18 112/49 98 Room Air 05/13/17 16:19 36.8 65 20 153/78 97 Room Air Physical Exam VITALS: Vitals are noted on the nurse's note and reviewed by myself. Vital signs stable. GENERAL: 37-year-old female, in no acute distress, nondiaphoretic, well- developed well-nourished. SKIN: The skin was without rashes, erythema, edema, or bruising. HEAD: Normocephalic atraumatic. MOUTH: Mucous membranes moist. NECK: Supple without nuchal rigidity. No JVD. HEART: Regular rate and rhythm without murmurs gallops or rubs. LUNGS: Clear to auscultation bilaterally without wheezes, rales or rhonchi. No accessory muscle use. ABDOMEN: Positive bowel sounds x 4.Soft, nontender, without organomegaly. No guarding or rebound tenderness. CVA tenderness right greater than left. MUSCULOSKELETAL: No muscle atrophy, erythema, or edema noted. Strength 5/5 throughout. NEURO: Patient was alert and oriented to person place and time. Normal sensation to touch. No focal neurological deficits. Medical Decision & Procedures ER Provider Diagnostic Interpretation: KUB IMPRESSION: 1. Stable bilateral ureteropelvic junction stones. These did not result in hydronephrosis on the recent abdomen and pelvis CT. 2. Stable bilateral nephrolithiasis. Electronically signed by: Joe Choi M.D. 05/13/2017 7:13 PM Dictated Date/Time: 05/13/2017 7:10 PM Gallbladder ultrasound IMPRESSION: 1. Hepatic steatosis. 2. Normal gallbladder. No gallstones. 3. No right-sided hydronephrosis. Electronically signed by: Joe Choi M.D. 05/13/2017 8:13 PM Dictated Date/Time: 05/13/2017 8:12 PM Laboratory Results 05/13/17 18:35 Red Blood Count 4.61, Mean Corpuscular Volume 90.9, Mean Corpuscular Hemoglobin 30.6, Mean Corpuscular Hemoglobin Concent 33.7, Mean Platelet Volume 11.4, Neutrophils (%) (Auto) 66.3, Lymphocytes (%) (Auto) 26.8, Monocytes (%) (Auto) 4.4, Eosinophils (%) (Auto) 1.9, Basophils (%) (Auto) 0.4, Neutrophils # (Auto) 8.92, Lymphocytes # (Auto) 3.60, Monocytes # (Auto) 0.59, Eosinophils # (Auto) 0.25, Basophils # (Auto) 0.05 05/13/17 18:35 Test 05/13/17 18:35 05/13/17 18:36 White Blood Count 13.44 K/uL (4.8-10.8) Red Blood Count 4.61 M/uL (4.2-5.4) Hemoglobin 14.1 g/dL (12.0-16.0) Hematocrit 41.9 % (37-47) Mean Corpuscular Volume 90.9 fL (80-100) Mean Corpuscular Hemoglobin 30.6 pg (25-34) Mean Corpuscular Hemoglobin Concent 33.7 g/dl (32-36) Platelet Count 246 K/uL (130-400) Mean Platelet Volume 11.4 fL (7.4-10.4) Neutrophils (%) (Auto) 66.3 % Lymphocytes (%) (Auto) 26.8 % Monocytes (%) (Auto) 4.4 % Eosinophils (%) (Auto) 1.9 % Basophils (%) (Auto) 0.4 % Neutrophils # (Auto) 8.92 K/uL (1.4-6.5) Lymphocytes # (Auto) 3.60 K/uL (1.2-3.4) Monocytes # (Auto) 0.59 K/uL (0.11-0.59) Eosinophils # (Auto) 0.25 K/uL (0-0.5) Basophils # (Auto) 0.05 K/uL (0-0.2) RDW Standard Deviation 43.0 fL (36.4-46.3) RDW Coefficient of Variation 13.0 % (11.5-14.5) Immature Granulocyte % (Auto) 0.2 % Immature Granulocyte # (Auto) 0.03 K/uL (0.00-0.02) Anion Gap 8.0 mmol/L (3-11) Est Creatinine Clear Calc Drug Dose 129.8 ml/min Estimated GFR () 111.6 Estimated GFR (Non- 96.3 BUN/Creatinine Ratio 19.2 (10-20) Calcium Level 9.3 mg/dl (8.5-10.1) Total Bilirubin 0.1 mg/dl (0.2-1) Aspartate Amino Transf (AST/SGOT) 29 U/L (15-37) Alanine Aminotransferase (ALT/SGPT) 41 U/L (12-78) Alkaline Phosphatase 95 U/L (45-117) Total Protein 7.0 gm/dl (6.4-8.2) Albumin 3.1 gm/dl (3.4-5.0) Globulin 3.9 gm/dl (2.5-4.0) Albumin/Globulin Ratio 0.8 (0.9-2) Lipase 98 U/L (73-393) Urine Color YELLOW Urine Appearance CLOUDY (CLEAR) Urine pH 5.5 (4.5-7.5) Urine Specific [place] 1.020 (1.000-1.030) Urine Protein NEG (NEG) Urine Glucose (UA) NEG (NEG) Urine Ketones NEG (NEG) Urine Occult Blood NEG (NEG) Urine Nitrite NEG (NEG) Urine Bilirubin NEG (NEG) Urine Urobilinogen NEG (NEG) Urine Leukocyte Esterase MODERATE (NEG) Urine WBC (Auto) 10-30 /hpf (0-5) Urine RBC (Auto) 0-4 /hpf (0-4) Urine Hyaline Casts (Auto) 1-5 /lpf (0-5) Urine Epithelial Cells (Auto) >30 /lpf (0-5) Urine Bacteria (Auto) NEG (NEG) Urine Test NEG (NEG) Medications Administered Medications (Trade) Dose Ordered Sig/Hussein Route Start Time Stop Time Status Last Admin Dose Admin Morphine Sulfate (MoRPHine SULFATE INJ) 6 mg NOW STAT IV 05/13/17 18:29 05/13/17 18:31 DC 05/13/17 18:52 6 MG Ondansetron HCl (Zofran Inj) 4 mg Q2H PRN IV 05/13/17 18:30 05/13/17 22:41 DC 05/13/17 18:52 4 MG Sodium Chloride 1,000 ml @ 999 mls/hr Q1H1M ONCE IV 05/13/17 18:30 05/13/17 19:30 DC 05/13/17 18:52 999 MLS/HR Hydromorphone HCl (Dilaudid Inj) 1 mg STK-MED ONCE .ROUTE 05/13/17 20:58 05/13/17 20:59 DC 05/13/17 21:01 1 MG Ceftriaxone Sodium (Rocephin Inj) 1 gm NOW STAT IV 05/13/17 21:17 05/13/17 21:18 DC 05/13/17 21:42 1 GM Oxycodone HCl (Roxicodone Immediate Rel 5MG Home Pack) 1 homepack UD ONCE PO 05/13/17 22:30 05/13/17 22:31 DC 05/13/17 22:30 1 HOMEPACK ED Course Patient was seen and examined Vital signs including blood pressure were reviewed medications list was verified with patient Labs were obtained, and a saline lock was established The patient was hydrated with 500 mL normal saline. She was medicated with morphine 6 g IV and Zofran 4 mg IV Imaging was performed and reviewed The patient was reassessed. She was still complaining of pain. She was given Dilaudid 1 mg IV. The case was discussed with Dr. Infante from urology. She was given 1 dose of Rocephin 1 g IV I reviewed the patient's workup with her and her mother. They voiced understanding. They're comfortable being discharged home. She was given a home pack of oxycodone. I reviewed discharge instructions the patient. They voiced understanding and had no further questions. Medical Decision Differential diagnosis: Kidney stone, UTI, pyelonephritis, gallbladder pathology This patient is a 37-year-old female that presents to emergency department with complaints of continued right greater than left flank pain. She has known kidney stones. On exam, she was uncomfortable. She had right CVA tenderness. Her labs reveal mild leukocytosis. Her renal function is intact. Urinalysis is concerning for a urinary tract infection. I performed an ultrasound of the gallbladder causes of her tenderness in the right upper quadrant. No other maladies were noted. Liver function and pancreatic function are both within normal limits. A KUB was performed. She has bilateral ureteral stones at the UPJ. The case was discussed with urology. As long as the patient wasn't febrile, they were comfortable sending the patient home on oral antibiotics. This was discussed with the patient. She was treated with IV antibiotics in the emergency department. She will be discharged home on a 14 day course of antibiotics. She was comfortable being discharged home. She will monitor her temperature. She agrees to return to the emergency department with any new, worsening or concerning symptoms. This chart was completed in part utilizing [employer] Speech Voice Recognition software. Attempts were made to minimize the grammatical errors, random word insertions, pronoun errors and incomplete sentences. Any formal questions or concerns about the content, text or information contained within the body of this dictation should be directly addressed to the provider for clarification. Medication Reconcilliation Current Medication List: was personally reviewed by me Blood Pressure Screening Patient's blood pressure: Normal blood pressure Consults Consulting Physician: Naresh Cross Primary Impression: Ureteral stone Departure Information Dispostion Home / Self-Care Condition GOOD Prescriptions Oxycodone Ir (Roxicodone Ir) 5 Mg Tab 1-2 TAB PO Q4H Y for Pain, #20 TAB For Initial Treatment Prov: Stephanie Abernathy PA-C 05/13/17 Ondasetron Odt (ZOFRAN ODT) 4 Mg Tab 4 MG SL Q6H for Nausea, #20 TAB Prov: Stephanie Abernathy PA-C 05/13/17 Sulfa/Trimethoprim (Bactrim Ds 800MG/160MG) Tab 1 TAB PO BID for 14 Days, #28 TAB Prov: Stephanie Abernathy PA-C 05/13/17 Referrals Nyasia Herrera D.O. (PCP) Jay Infante MD Patient Instructions [facility] Additional Instructions You have been evaluated in the emergency department with flank pain. The kidney stones are in the same location when compared to prior studies. It does appear that you have a urinary tract infection. Please take entire course of antibiotics. Increase your fluids. Stay well hydrated with water. Continue ibuprofen 600 mg every 6 hours as needed for pain Oxycodone Immediate Release (OxyIR) 5mg: Take 1-2 pills every four hours for pain. Avoid alcohol, operating machinery or dangerous equipment, working on ladders or roofs, DRIVING, or situations where being under the influence may be dangerous. It is recommended to use an [id number] stool softener such as Colace, 100mg twice daily while taking this medication to avoid constipation. Please take Zofran 1 tab under the tongue as needed for nausea Please call your urologist in the morning for a follow-up appointment. Do not hesitate to return to the emergency department with any new, worsening or concerning symptoms; especially, fever, vomiting or worsening pain Work Instructions Return To Work: 1 day
[2017-05-13] MEDS ORDERED: HYDROmorphone INJ 1 MG/ML SYR ONE (20:58)
[2017-05-13] MEDS ORDERED: CEFTRIAXONE SOD INJ 1 GM ADDVIAL IV STA (21:17)
[2017-05-13] MEDS ORDERED: ONDA4TAB10 SL (22:13)
[2017-05-13] MEDS ORDERED: SULF800T23 PO (22:13)
[2017-05-13] MEDS ORDERED: OXYC1TAB3 PO ×2 (22:13→22:14)
[2017-05-13 22:19] VITALS: BP 121/74; PULSE 78; O2SAT 95
[2017-05-13] MEDS ORDERED: OXYCODONE IR HOME PACK PO ONE (22:30)
== END 2017-05-13 22:32 | disposition home or self-care (01) ==
LOC: C.EDB 16:10 → C.EDC 22:32
DX: N20.1 Calculus of ureter (principal); F41.9 Anxiety disorder, unspecified; E11.9 Type 2 diabetes mellitus without complications; E66.9 Obesity, unspecified; Z83.3 Family history of diabetes mellitus; Z82.49 Family history of ischemic heart disease and other diseases of the circulatory system; F17.200 Nicotine dependence, unspecified, uncomplicated; Z79.82 Long term (current) use of aspirin

== ENCOUNTER → 2017-05-25 | Day surgery (SDC) | payer BC ==
[2017-05-11 15:57] LABS: BASO % 0.4 %; BASO ABS # 0.05 K/uL (0-0.2); EOS % 1.7 %; EOS ABS # 0.22 K/uL (0-0.5); HEMATOCRIT 42.1 % (37-47); HEMOGLOBIN 14.7 g/dL (12.0-16.0); IG# 0.04 K/uL (0.00-0.02); LYMPH % 26.1 %; LYMPH ABS # 3.47 K/uL (1.2-3.4); MEAN CORPUSCULAR HEMOGLOBIN 31.4 pg (25-34); MEAN CORPUSCULAR HGB CONC 34.9 g/dl (32-36); MEAN PLATELET VOLUME 11.4 fL (7.4-10.4); MONO % 5.2 %; MONO ABS # 0.69 K/uL (0.11-0.59); NEUT % 66.3 %; NEUT ABS # 8.84 K/uL (1.4-6.5); PLATELET COUNT 226 K/uL (130-400); RED CELL DISTRIBUTION WIDTH CV 12.9 % (11.5-14.5); RED CELL DISTRIBUTION WIDTH SD 42.1 fL (36.4-46.3); WHITE BLOOD COUNT 13.31 K/uL (4.8-10.8)
--- NOTE | 2017-05-11 16:05 | PAT Medication Instructions ---
Service Date May 11, 2017. Current Home Medication List Amoxicillin (Amoxicillin), 1 CAP PO BID Docusate Sodium (Docusate Sodium), 1 CAP PO BID Ipratropium-Albuterol (Duoneb), 1 TREATMENT INH UD PRN for PRN Lisinopril (Lisinopril), 1 TAB PO QAM Oxycodone/Acetaminophen 5MG/325MG (Percocet 5MG/325MG), 1 TABLET PO Q6H PRN for Pain Simvastatin (Zocor), 20 MG PO QPM Sitagliptin-Metformin Hcl (Janumet), Unknown Dose PO QAM Venlafaxine Hcl (Venlafaxine Extended Rel), 37.5 MG PO QAM Medication Instructions For Your Scheduled Surgery -Continue as directed: Amoxicillin (Amoxicillin), 1 CAP PO BID - Hold the following medications 48 hours prior to surgery: Sitagliptin-Metformin Hcl (Janumet), Unknown Dose PO QAM - Hold the following medications the morning of surgery: Lisinopril (Lisinopril), 1 TAB PO QAM Docusate Sodium (Docusate Sodium), 1 CAP PO BID - Take the following medications the morning of surgery with a sip of water: Venlafaxine Hcl (Venlafaxine Extended Rel), 37.5 MG PO QAM Ipratropium-Albuterol (Duoneb), 1 TREATMENT INH UD PRN for PRN (if needed) Oxycodone/Acetaminophen 5MG/325MG (Percocet 5MG/325MG), 1 TABLET PO Q6H PRN for Pain (if needed, can be taken up to four hours before surgery) - Take the following medications as scheduled the night before surgery: Simvastatin (Zocor), 20 MG PO QPM Ipratropium-Albuterol (Duoneb), 1 TREATMENT INH UD PRN for PRN (if needed) Docusate Sodium (Docusate Sodium), 1 CAP PO BID Oxycodone/Acetaminophen 5MG/325MG (Percocet 5MG/325MG), 1 TABLET PO Q6H PRN for Pain (if needed) If you have any questions please call us at [phone] or [phone] or [phone]
[2017-05-11 16:22] VITALS: BMI 60.0
[~2017-05-25] VITALS: Ht 152.4 cm; Wt 140.7 kg
[~2017-05-25] MED LIST changes: -AMX500 PO; +ASPI-461 PO; +ATROPINE SULFATE 0.1 MG/ML 5ML SYR IV PRN; +CEFAZOLIN 3000MG IV PUSH 22.5 ML IV SCH; +CIPR-255 PO; +Cysto-Conray II 17.2% 250ML BOTTLE ONE; +DEXAMETHASONE SOD INJ 4 MG/ML VIAL ONE; -DOCU100C31 PO; +FENTANYL CITRATE INJ 50 MCG/1 ML 2 ML VIAL IV PRN; +FENTANYL CITRATE INJ 50 MCG/1 ML 2 ML VIAL ONE; +GLYCOPYRROLATE INJ 0.2 MG/ML VIAL ONE; -IPRASOL4 INH; +IPRASOL4 NEB; +KETOROLAC TROMETHAMINE 30 MG/ML VIAL IV. PRN; +LABETALOL HCL IV 5 MG/ML 20ML IV ONE; +LACTATED RINGER'S 1000ML 1,000 ML IV SCH; +LIDOCAINE HCL 2% 2 ML VIAL (20MG/ML) ONE; +MIDAZOLAM HCL 1 MG/ML 2ML VIAL ONE; +NEOSTIGMINE METHYLSULFATE 5 MG/5 ML SYR ONE; +ONDA4TAB10 SL; +ONDANSETRON INJ 2 MG/ML 2 ML VIAL IV PRN; +ONDANSETRON INJ 2 MG/ML 2 ML VIAL ONE; +OXYC1TAB3 PO; +OXYCODONE/ACETAMINOPHEN 7.5-325 TAB PO PRN; +PHEN-775 PO; +PROPOFOL IV EMULSION 10 MG/ML 20 ML VIAL IV ONE; +ROCURONIUM BROMIDE 10 MG/ML 5 ML VIAL IV ONE; -SIMV20TA2 PO; +SITA1TAB21 PO; -SITA50TA5 PO; +SULF800T23 PO; +TAMS0.4C38 PO; +VENL37.593 PO; +ZCR40 PO
[2017-05-25 09:11] VITALS: BP 136/75; PULSE 88; TEMP 36.6; O2SAT 93; Ht 152.4 cm; Wt 140.7 kg
--- NOTE | 2017-05-25 10:43 | History & Physical Bridge Note ---
H&P Re-Evaluation Bridge Note: I have examined the patient, reviewed the History & Physical and in the interval since the performance of the History & Physical I have noted the following changes of clinical significance: No changes noted Bilateral Stent. Right URS and LL and Stone basket
--- NOTE | 2017-05-25 10:45 | Discharge Instructions ---
Discharge Instructions Date of Service May 25, 2017. Admission Reason for Admission: Stones Discharge Discharge Diagnosis / Problem: Stone Discharge Goals Goal(s): Decrease discomfort, Improve function Activity Recommendations Activity Limitations: resume your previous activity Lifting Limitations: gradually increase as tolerated Exercise/Sports Limitations: gradually increase as tolerated Shower/Bathe: no limitations . Instructions / Follow-Up Instructions / Follow-Up May have blood in urine or pelvic pain. Call if any fevers or chills. Call if any issues. Follow up for further stone management. Current Hospital Diet Patient's current hospital diet: Discharge Diet Recommended Diet: Regular Diet Procedures Procedures Performed: Cystoscopy, Bilateral Retro and Stent. Right URS and LL Pending Studies Studies pending at discharge: no Laboratory Results Hemoglobin A1c Test 04/30/17 07:38 Range/Units Estimated Average Glucose 232 mg/dl Hemoglobin A1c 9.7 H 4.5-5.6 % Lipid Panel Test 04/30/17 07:38 Range/Units Triglycerides Level 410 H 0-150 mg/dl Cholesterol Level 143 0-200 mg/dl HDL Cholesterol 23 mg/dl Cholesterol/HDL Ratio 6.2 LDL Cholesterol, Calculated mg/dl Medical Emergencies . Who to Call and When: Medical Emergencies: If at any time you feel your situation is an emergency, please call 911 immediately. . Non-Emergent Contact Non-Emergency issues call your: Primary Care Provider, Urologist Call Non-Emergent contact if: you have a fever, temperature is above 101, temperature is above 101.5, your pain is not controlled, your pain is worsening . . "Provider Documentation" section prepared by Sim Jackson,. . VTE Core Measure Inpt VTE Proph given/why not?: SCD's
--- NOTE | 2017-05-25 11:43 | [facility] Operative Report ---
Operative Report Operative Date May 25, 2017. Pre-Operative Diagnosis Right Stone, Bilateral Stones Post-Operative Diagnosis Same Procedure(s) Performed Cystoscopy, Bilateral Retrograde pyelogram and Stent placement. Right Ureteroscopy, Laser Lithotripsy. Surgeon Manuel Estimated Blood Loss Minimal Findings Bilateral UPJ Stones Specimens None Drains 6 x 24 Double J Bilateral Anesthesia Type General Complication(s) none Disposition Recovery Room / PACU Indications Bilateral Stones failed trial of passage. Description of Procedure Patient was consented and brought back to the operating room. Patient was placed under anesthesia in the supine position and moved to the dorsal lithotomy position. Patient was prepped and draped in the regular sterile fashion. A time out was completed. A 30degree Cystoscope was placed into the bladder and the entire bladder was examined. The UO's were identified. Each Side was cannulized with a catheter and a retrograde pyelogram was completed. A wire was then placed on the left. With the wire in place, a 6 x [ 24] Double J stent was placed. It was confirmed with fluoroscopy. The right wire was then placed and a ureteral access sheath and safety wire was placed. A flexible ureteroscope was placed into the sheath and taken to the UPJ. The stone was encountered and pulverized to dust and small fragments. The entire pelvis was examined. Further stone was treated with the laser. With the pelvis on the right clear, the scope was slowly removed. The entire ureter was examined. No areas of concern noted. The scope was removed with the wire remaining in place. A 6 x 24 Double J Stent was placed on the right and confirmed with fluoroscopy. With the stents in place, the bladder was emptied. The scope was removed. The patient was cleaned, aroused from anesthesia, and transferred to the pacu in stable condition having tolerated the procedure well with no complications. I was present and participated in all aspects of the procedure. The patient will be monitored in the PACU until transferred. I attest to the content of the Intraoperative Record and any orders documented therein. Any exceptions are noted below.
[2017-05-25 12:40] VITALS: BP 143/81; PULSE 79; TEMP 36.5; O2SAT 94
[2017-05-25 13:00] VITALS: BP 136/72; PULSE 70; TEMP 36.6; O2SAT 90
--- NOTE | 2017-05-25 13:10 | DIAGNOSTIC IMAGING REPORT ---
RETROGRADE INCLUDES KUB CLINICAL HISTORY: 37 years-old Female presenting with RT CYSTO/LASER/STENT. TECHNIQUE: 5 fluoroscopic spot image(s) obtained as part of an intraoperative procedure. COMPARISON: Plain radiograph from 05/13/2017. FINDINGS/IMPRESSION: Interval placement of a catheter over a guidewire into the proximal right ureter. The right renal collecting system was opacified with contrast. Bilateral ureteral stents were placed. Please see surgical report for further details. Dose area product (mGy.cm^2): 8854.4. Fluoroscopy time: 50.2 seconds. Number of fluoroscopic spot images: 5. Electronically signed by: Giovanni Walsh M.D. 05/25/2017 1:09 PM Dictated Date/Time: 05/25/2017 1:07 PM
[2017-05-25 13:30] VITALS: BP 134/75; PULSE 79; TEMP 36.6; O2SAT 93
--- NOTE | 2017-05-25 13:52 | Anesthesiology Progress Note ---
Anesthesia Post Op Note Date & Time May 25, 2017 at 13:52 Vital Signs Pain Intensity: 2 Vital Signs Past 12 Hours Date Time Temp Pulse Resp B/P (MAP) Pulse Ox O2 Delivery O2 Flow Rate FiO2 05/25/17 13:30 36.6 79 18 134/75 93 Room Air 05/25/17 13:00 36.6 70 18 136/72 90 Room Air 05/25/17 12:40 36.5 79 20 143/81 94 Nasal Cannula 2 05/25/17 12:35 36.7 71 18 135/92 93 Nasal Cannula 2 05/25/17 12:25 73 18 147/95 96 Nasal Cannula 2 05/25/17 12:15 72 18 149/98 96 Oxymask 10 05/25/17 12:05 78 18 162/105 95 Oxymask 10 05/25/17 11:58 36.3 80 18 141/97 97 Oxymask 10 05/25/17 09:11 36.6 88 20 136/75 (95) 93 Room Air Notes Mental Status: alert / awake / arousable, participated in evaluation Pt Amnestic to Procedure: Yes Nausea / Vomiting: adequately controlled Pain: adequately controlled Airway Patency, RR, SpO2: stable & adequate BP & HR: stable & adequate Hydration State: stable & adequate Anesthetic Complications: no major complications apparent
[2017-05-25 14:00] VITALS: BP 140/77; PULSE 82; TEMP 36.8; O2SAT 92
== END | disposition home or self-care (01) ==
LOC: C.ACU 08:40
PROVIDERS: ATTEND Urology
DX: N20.1 Calculus of ureter (principal); Z82.49 Family history of ischemic heart disease and other diseases of the circulatory system; Z83.3 Family history of diabetes mellitus; Z83.42 Family history of familial hypercholesterolemia; Z84.89 Family history of other specified conditions; Z87.891 Personal history of nicotine dependence

== ENCOUNTER 2017-05-27 20:09 | Emergency (ER) | payer BC ==
[~2017-05-27] VITALS: Ht 152.4 cm; Wt 136.0 kg
[~2017-05-27 20:09] MED LIST changes: -ASPI-461 PO; -ATROPINE SULFATE 0.1 MG/ML 5ML SYR IV PRN; -CEFAZOLIN 3000MG IV PUSH 22.5 ML IV SCH; -Cysto-Conray II 17.2% 250ML BOTTLE ONE; -DEXAMETHASONE SOD INJ 4 MG/ML VIAL ONE; -FENTANYL CITRATE INJ 50 MCG/1 ML 2 ML VIAL IV PRN; -FENTANYL CITRATE INJ 50 MCG/1 ML 2 ML VIAL ONE; -GLYCOPYRROLATE INJ 0.2 MG/ML VIAL ONE; -KETOROLAC TROMETHAMINE 30 MG/ML VIAL IV. PRN; -LABETALOL HCL IV 5 MG/ML 20ML IV ONE; -LACTATED RINGER'S 1000ML 1,000 ML IV SCH; -LIDOCAINE HCL 2% 2 ML VIAL (20MG/ML) ONE; -MIDAZOLAM HCL 1 MG/ML 2ML VIAL ONE; -NEOSTIGMINE METHYLSULFATE 5 MG/5 ML SYR ONE; -ONDANSETRON INJ 2 MG/ML 2 ML VIAL IV PRN; -ONDANSETRON INJ 2 MG/ML 2 ML VIAL ONE; -OXYCODONE/ACETAMINOPHEN 7.5-325 TAB PO PRN; -PROPOFOL IV EMULSION 10 MG/ML 20 ML VIAL IV ONE; -ROCURONIUM BROMIDE 10 MG/ML 5 ML VIAL IV ONE; -TAMS0.4C38 PO
[2017-05-27 20:16] VITALS: Ht 152.4 cm; Wt 136.0 kg
[2017-05-27] MEDS ORDERED: ONDANSETRON INJ 2 MG/ML 2 ML VIAL IV STA (22:04)
[2017-05-27] MEDS ORDERED: SODIUM CHLORIDE 0.9% 1000ML 1,000 ML IV STA (22:04)
[2017-05-27] MEDS ORDERED: MoRPHine SULFATE 4 MG/ML 1 ML CARP\\VIAL IV PRN (22:15)
[2017-05-27 22:18] LABS: BASO % 0.4 %; BASO ABS # 0.05 K/uL (0-0.2); EOS % 4.8 %; EOS ABS # 0.53 K/uL (0-0.5); HEMATOCRIT 42.2 % (37-47); HEMOGLOBIN 14.7 g/dL (12.0-16.0); IG# 0.02 K/uL (0.00-0.02); LYMPH % 41.2 %; LYMPH ABS # 4.58 K/uL (1.2-3.4); MEAN CELL VOLUME 88.8 fL (80-100); MEAN CORPUSCULAR HEMOGLOBIN 30.9 pg (25-34); MEAN CORPUSCULAR HGB CONC 34.8 g/dl (32-36); MEAN PLATELET VOLUME 10.9 fL (7.4-10.4); MONO % 7.3 %; MONO ABS # 0.81 K/uL (0.11-0.59); NEUT % 46.1 %; NEUT ABS # 5.14 K/uL (1.4-6.5); PLATELET COUNT 222 K/uL (130-400); RED CELL DISTRIBUTION WIDTH SD 42.5 fL (36.4-46.3); WHITE BLOOD COUNT 11.13 K/uL (4.8-10.8)
[2017-05-27 22:33] LABS: ALBUMIN 3.2 gm/dl (3.4-5.0); CALCIUM 9.3 mg/dl (8.5-10.1); CREATININE 1.21 mg/dl (0.60-1.20); TOTAL PROTEIN 7.5 gm/dl (6.4-8.2)
--- NOTE | 2017-05-27 22:40 | DIAGNOSTIC IMAGING REPORT ---
ABD/PELVIS WITHOUT FOR STONE CT DOSE: 2216.71 mGy.cm HISTORY: Flank pain flank pain TECHNIQUE: Multiaxial CT images of the abdomen and pelvis were performed without the use of intravenous and oral contrast according to the standard department stone protocol. A dose lowering technique was utilized adhering to the principles of ALARA. COMPARISON STUDY: 05/07/2017 FINDINGS: Lung bases are clear. Fatty replacement of the liver. Interval placement of bilateral ureteral stents. The left stent is within the left renal pelvis with the right stent within the right kidney is lower pole. Bilateral nephrocalcinosis is noted. This is similar as compared to the prior study. Stents are in good position within the urinary bladder. There is a 1.5 cm right ovarian cyst. The bowel pattern is considered nonobstructive. Fat-containing ventral hernias are again noted. These are nonobstructive findings. IMPRESSION: 1. Fatty infiltration of liver. 2. Bilateral nephrocalcinosis similar compared to the prior study. 3. Placement of bilateral ureteral stents in good position. 4. Small right ovarian cyst. 5. Several fat-containing ventral hernias unchanged from the prior study. The above report was generated using voice recognition software. It may contain grammatical, syntax or spelling errors. Electronically signed by: Jacoby Tejeda M.D. 05/27/2017 10:38 PM Dictated Date/Time: 05/27/2017 10:33 PM
[2017-05-27] MEDS ORDERED: OXYC-57 PO (22:53)
[2017-05-27] MEDS ORDERED: TAMS0.4C38 PO (22:53)
--- NOTE | 2017-05-27 22:55 | EMERGENCY ROOM VISIT NOTE ---
History Report prepared by Miguel Ángel: Jazmyn Montano Under the Supervision of: Dr. Scott Villalba D.O. First contact with patient: 21:56 Chief Complaint: FLANK PAIN Stated Complaint: KIDNEY STENT PAIN History of Present Illness The patient is a 37 year old female who presents to the Emergency Room with complaints of persistent flank pain starting 2 days ago. The patient had bilateral stents placed for kidney stones 2 days ago. She has been having pain since the stents were placed. She has been taking Toradol to no significant relief. She reports back pain and leg pain. Pt has had hematuria since the stents were placed. Source of History: patient Onset: 2 days ago Position: other (bilateral flank) Quality: other (pain) Timing: other (persistent) Associated Symptoms: + back pain, + urinary symptoms Note: Pt reports leg pain. Review of Systems See HPI for pertinent positives & negatives. A total of 10 systems reviewed and were otherwise negative. Past Medical & Surgical Medical Problems: (1) Abdominal wall hernia (2) Achilles tendonitis, bilateral (3) Acute pharyngitis (4) Anxiety (5) Anxiety (6) Bronchospasm with bronchitis, acute (7) Bronchospasm with bronchitis, acute (8) CALCULUS OF URETER (9) Cellulitis (10) Cellulitis, abdominal wall (11) Chest pain (12) Diabetes mellitus type II, uncontrolled (13) Elevated blood pressure reading (14) Irritation of eye (15) Kidney calculi (16) MORBID OBESITY (17) Muscle strain of right upper extremity (18) Plantar fasciitis of left foot (19) Skin ulceration (20) Strain of right trapezius muscle (21) Tobacco use disorder (22) Vaginal bleeding Surgical Problems: (1) Previous section Social History Problems: (1) Diabetes Family History Diabetes mellitus FH: cancer Hypertension Kidney disease Kidney stones Social History Smoking Status: Current Every Day Smoker Alcohol Use: occasionally Drug Use: none Marital Status: Housing Status: lives with family Occupation Status: employed Current/Historical Medications Scheduled Ciprofloxacin Hcl (Cipro), 500 MG PO BID Lisinopril (Lisinopril), 5 MG PO QAM Ondasetron Odt (Zofran Odt), 4 MG SL Q6H Phenazopyridine Hcl (Pyridium), 1 TAB PO TID Simvastatin (Simvastatin), 20 MG PO QPM Sitagliptin-Metformin Hcl (Janumet Xr), 1 TAB PO QAM Sulfa/Trimethoprim (Bactrim Ds 800MG/160MG), 1 TAB PO BID Tamsulosin Hcl (Flomax), 0.4 MG PO HS Venlafaxine Hcl (Venlafaxine Extended Rel), 37.5 MG PO QAM Scheduled PRN Ipratropium-Albuterol (Duoneb), 3 ML NEB Q4H PRN for SOB/Wheezing Oxycodone Ir (Roxicodone Ir), 1-2 TAB PO Q4H PRN for Pain Oxycodone/Acetaminophen 5MG/325MG (Percocet 5MG/325MG), 1 TABLET PO Q4 PRN for Severe Pain Oxycodone/Acetaminophen 5MG/325MG (Percocet 5MG/325MG), 1 TAB PO Q6H PRN for Pain Allergies Coded Allergies: No Known Allergies (Verified , 05/27/17) Physical Exam Vital Signs Date Time Temp Pulse Resp B/P (MAP) Pulse Ox O2 Delivery O2 Flow Rate FiO2 05/27/17 22:02 70 18 133/86 95 Room Air 05/27/17 22:00 69 05/27/17 20:16 36.8 102 20 188/110 92 Room Air Physical Exam CONSTITUTIONAL/VITAL SIGNS: Reviewed / noted above. GENERAL: Non-toxic in appearance. INTEGUMENTARY: Warm, dry, and [place]. HEAD: Normocephalic. EYES: without scleral icterus or trauma. ENT/OROPHARYNX: clear and moist. LYMPHADENOPATHY/NECK: Is supple without lymphadenopathy or meningismus. RESPIRATORY: Lungs clear and equal. CARDIOVASCULAR: Regular rate and rhythm. GI/ABDOMEN: Soft and nontender. No organomegaly or pulsatile mass. No rebound or guarding. Normal bowel sounds. EXTREMITIES: Warm and well perfused. BACK: Bilateral CVA tenderness. NEUROLOGICAL: Intact without focal deficits. PSYCHIATRIC: normal affect. MUSCULOSKELETAL: Normally developed with good muscle tone. Medical Decision & Procedures ER Provider Diagnostic Interpretation: Radiology results as stated below per my review and radiologist interpretation: ABD/PELVIS WITHOUT FOR STONE CT DOSE: 2216.71 mGy.cm HISTORY: Flank pain flank pain TECHNIQUE: Multiaxial CT images of the abdomen and pelvis were performed without the use of intravenous and oral contrast according to the standard department stone protocol. A dose lowering technique was utilized adhering to the principles of ALARA. COMPARISON STUDY: 05/07/2017 FINDINGS: Lung bases are clear. Fatty replacement of the liver. Interval placement of bilateral ureteral stents. The left stent is within the left renal pelvis with the right stent within the right kidney is lower pole. Bilateral nephrocalcinosis is noted. This is similar as compared to the prior study. Stents are in good position within the urinary bladder. There is a 1.5 cm right ovarian cyst. The bowel pattern is considered nonobstructive. Fat-containing ventral hernias are again noted. These are nonobstructive findings. IMPRESSION: 1. Fatty infiltration of liver. 2. Bilateral nephrocalcinosis similar compared to the prior study. 3. Placement of bilateral ureteral stents in good position. 4. Small right ovarian cyst. 5. Several fat-containing ventral hernias unchanged from the prior study. The above report was generated using voice recognition software. It may contain grammatical, syntax or spelling errors. Electronically signed by: Jacoby Tejeda M.D. 05/27/2017 10:38 PM Dictated Date/Time: 05/27/2017 10:33 PM Laboratory Results 05/27/17 21:42 Red Blood Count 4.75, Mean Corpuscular Volume 88.8, Mean Corpuscular Hemoglobin 30.9, Mean Corpuscular Hemoglobin Concent 34.8, Mean Platelet Volume 10.9, Neutrophils (%) (Auto) 46.1, Lymphocytes (%) (Auto) 41.2, Monocytes (%) (Auto) 7.3, Eosinophils (%) (Auto) 4.8, Basophils (%) (Auto) 0.4, Neutrophils # (Auto) 5.14, Lymphocytes # (Auto) 4.58, Monocytes # (Auto) 0.81, Eosinophils # (Auto) 0.53, Basophils # (Auto) 0.05 05/27/17 21:42 Test 05/27/17 21:40 05/27/17 21:42 Urine Color ORANGE Urine Appearance CLOUDY (CLEAR) Urine pH (4.5-7.5) Urine Specific Dawson 1.022 (1.000-1.030) Urine Protein POS (NEG) Urine Glucose (UA) (NEG) Urine Ketones (NEG) Urine Occult Blood (NEG) Urine Nitrite (NEG) Urine Bilirubin (NEG) Urine Urobilinogen (NEG) Urine Leukocyte Esterase (NEG) Urine RBC (Auto) /hpf (0-4) Urine RBC >30 /hpf (0-4) Urine WBC >30 /hpf (0-5) Urine Epithelial Cells >30 /lpf (0-5) Urine Bacteria 1+ (NEG) Urine Test NEG (NEG) White Blood Count 11.13 K/uL (4.8-10.8) Red Blood Count 4.75 M/uL (4.2-5.4) Hemoglobin 14.7 g/dL (12.0-16.0) Hematocrit 42.2 % (37-47) Mean Corpuscular Volume 88.8 fL (80-100) Mean Corpuscular Hemoglobin 30.9 pg (25-34) Mean Corpuscular Hemoglobin Concent 34.8 g/dl (32-36) Platelet Count 222 K/uL (130-400) Mean Platelet Volume 10.9 fL (7.4-10.4) Neutrophils (%) (Auto) 46.1 % Lymphocytes (%) (Auto) 41.2 % Monocytes (%) (Auto) 7.3 % Eosinophils (%) (Auto) 4.8 % Basophils (%) (Auto) 0.4 % Neutrophils # (Auto) 5.14 K/uL (1.4-6.5) Lymphocytes # (Auto) 4.58 K/uL (1.2-3.4) Monocytes # (Auto) 0.81 K/uL (0.11-0.59) Eosinophils # (Auto) 0.53 K/uL (0-0.5) Basophils # (Auto) 0.05 K/uL (0-0.2) RDW Standard Deviation 42.5 fL (36.4-46.3) RDW Coefficient of Variation 13.0 % (11.5-14.5) Immature Granulocyte % (Auto) 0.2 % Immature Granulocyte # (Auto) 0.02 K/uL (0.00-0.02) Anion Gap 12.0 mmol/L (3-11) Est Creatinine Clear Calc Drug Dose 82.9 ml/min Estimated GFR () 66.7 Estimated GFR (Non- 57.5 BUN/Creatinine Ratio 12.0 (10-20) Calcium Level 9.3 mg/dl (8.5-10.1) Total Bilirubin 0.4 mg/dl (0.2-1) Direct Bilirubin mg/dl (0-0.2) Aspartate Amino Transf (AST/SGOT) U/L (15-37) Alanine Aminotransferase (ALT/SGPT) 31 U/L (12-78) Alkaline Phosphatase 99 U/L (45-117) Total Protein 7.5 gm/dl (6.4-8.2) Albumin 3.2 gm/dl (3.4-5.0) Lipase 71 U/L (73-393) Laboratory results as stated above per my review. Medications Administered Medications (Trade) Dose Ordered Sig/Hussein Route Start Time Stop Time Status Last Admin Dose Admin Sodium Chloride 1,000 ml @ 999 mls/hr Q1H1M STAT IV 05/27/17 22:04 05/27/17 23:04 DC 05/27/17 22:19 999 MLS/HR Ondansetron HCl (Zofran Inj) 4 mg NOW STAT IV 05/27/17 22:04 05/27/17 22:07 DC 05/27/17 22:18 4 MG Morphine Sulfate (MoRPHine SULFATE INJ) 4 mg Q15M PRN IV 05/27/17 22:15 06/10/17 22:14 05/27/17 22:19 4 MG ED Course 9: Previous medical records were reviewed. The patient was evaluated in room B4B. A complete history and physical examination was performed. 2204: Zofran Inj 4 mg IV, NSS 1000 ml @ 999 mls/hr IV. 2215: Morphine Sulfate 4 mg IV. 2246: I discussed the patient's case with Dr. Jackson, [facility] [place] [facility]. We are in agreement with the plan. 2257: On reevaluation, the patient is resting comfortably. I discussed the results and findings with the patient. She verbalized agreement of the treatment plan. She was discharged home. 2300: Flomax Cap 0.4 mg PO. Medical Decision Differential considered: pancreatitis, hepatitis, or acute cholecystitis, AAA, UTI, pyelonephritis, kidney stones, appendicitis, diverticulitis, shingles, bowel obstruction mesenteric ischemia, intussusception,hernia, ovarian torsion, ruptured ovarian cyst,ectopic , . This is a 37-year-old female who presents to the ED with a chief complaint of bilateral flank pain. The patient had bilateral ureteral stents placed on Thursday, [address] Jackson. The patient had these placed for bilateral ureteral stones. She has been on Cipro for the past 2 days. The patient states that she has had hematuria and flank pain that radiates into her inner thighs since that time. She states that the pain is worse than her stones were. Her initial blood pressure was 188/110. Her physical exam revealed bilateral CVA tenderness. Her CBC is unremarkable other than a white count of 11.1. Complete metabolic panel was unremarkable. Creatinine is 1.21. Glucose is 259. Lipase is negative, test was negative. A CT scan of the abdomen and pelvis reveals bilateral ureteral stents in good position. There is otherwise no acute abnormalities. The patient's urine appears contaminated. Will await culture as she is currently on Cipro. The patient received IV morphine, IV Zofran and IV fluids during her ED stay for improvement of her pain control. I did speak with Dr. Manuel curran about the patient. He recommended Flomax and a prescription for Percocet. The patient was provided with these. She was given a dose of Flomax tonight and a Percocet home pack. She is felt to be stable for discharge and outpatient follow-up. The office will call her for close follow-up. Medication Reconcilliation Current Medication List: was personally reviewed by me Blood Pressure Screening Patient's blood pressure: Elevated blood pressure Blood pressure disposition: Elevated BP felt to be situational Consults Time Called: 2243 Consulting Physician: Dr. Jackson, [facility] [place] Returned Call: [phone] I discussed the patient's case with him. We are in agreement with the plan. Impression Primary Impression: Renal colic Scribe Attestation The scribe's documentation has been prepared under my direction and personally reviewed by me in its entirety. I confirm that the note above accurately reflects all work, treatment, procedures, and medical decision making performed by me. Departure Information Dispostion Home / Self-Care Prescriptions Tamsulosin Hcl (FLOMAX) 0.4 Mg Cap 0.4 MG PO HS for 10 Days, #10 CAP Prov: Scott Villalba D.O. 05/27/17 Oxycodone/Acetaminophen 5MG/325MG (PERCOCET 5MG/325MG) Tab 1 TAB PO Q6H Y for Pain, #20 TAB Prov: Scott Villalba D.O. 05/27/17 Referrals Sim Jackson D.O. (PCP) Patient Instructions My [facility] Additional Instructions Flomax as prescribed. Percocet as prescribed. No driving within 6 hours of use. Do not take additional Tylenol while taking Percocet. Dr. Jackson office will call you for closer follow-up. Call their office tomorrow afternoon if they have not contacted you by then.
[2017-05-27] MEDS ORDERED: TAMSULOSIN HCL 0.4 MG CAP PO ONE (23:00)
[2017-05-27] MEDS ORDERED: PERCOCET HOME PACK PO ONE (23:15)
[2017-05-27 23:17] VITALS: BP 125/80; PULSE 74; TEMP 36.8; O2SAT 96
[2017-06-17] MEDS ORDERED: OXYC7.5T65 PO (08:20)
[2017-06-17] MEDS ORDERED: TAMS0.4C38 PO (08:20)
[2017-06-17] MEDS ORDERED: ONDA4TAB46 PO (08:20)
[2017-06-17] MEDS ORDERED: DTR/5 PO (08:20)
[2017-06-18] MEDS ORDERED: KETO10TA PO (10:54)
[2017-06-18] MEDS ORDERED: DTR/5 PO (10:54)
[2017-06-18] MEDS ORDERED: OXYC7.5T65 PO (10:54)
[2017-06-18] MEDS ORDERED: TAMS0.4C38 PO (10:54)
[2017-06-18] MEDS ORDERED: CIPR-255 PO (10:55)
== END 2017-05-27 23:18 | disposition home or self-care (01) ==
LOC: C.EDB 20:11
DX: N23 Unspecified renal colic (principal); Z98.890 Other specified postprocedural states; F41.9 Anxiety disorder, unspecified; E11.9 Type 2 diabetes mellitus without complications; E66.01 Morbid (severe) obesity due to excess calories; F17.210 Nicotine dependence, cigarettes, uncomplicated; Z83.3 Family history of diabetes mellitus; Z80.9 Family history of malignant neoplasm, unspecified; Z82.49 Family history of ischemic heart disease and other diseases of the circulatory system; Z84.1 Family history of disorders of kidney and ureter; Z79.899 Other long term (current) drug therapy

== ENCOUNTER → 2017-06-04 | Outpatient (CLI) | payer BC ==
[~2017-06-04] MED LIST changes: +DTR/5 PO; +KETO10TA PO; +ONDA4TAB46 PO; +OXYC7.5T65 PO; +TAMS0.4C38 PO
--- NOTE | 2017-06-04 13:56 | DIAGNOSTIC IMAGING REPORT ---
KUB HISTORY: N20.1 Ureteric stone COMPARISON: KUB 05/13/2017. Abdomen and pelvis CT 05/27/2017. FINDINGS: The bowel gas pattern is unremarkable. There are no dilated loops of small bowel to suggest an obstruction. Multiple punctate bilateral renal calculi remain unchanged. No ureteral or bladder calculi identified. Of note, the proximal right ureteral stent is only partially looped within the right renal pelvis. However, this remains unchanged. The left ureteral stent is also a good position. No pneumoperitoneum or pneumatosis. IMPRESSION: 1. Stable bilateral nephrolithiasis. 2. No ureteral calculi. 3. Bilateral ureteral stents are unchanged in position. The proximal right ureteral stent is only partially looped within the right renal pelvis. Electronically signed by: Joe Choi M.D. 06/04/2017 1:55 PM Dictated Date/Time: 06/04/2017 1:52 PM
[2017-06-04 14:44] LABS: BASO % 0.4 %; BASO ABS # 0.05 K/uL (0-0.2); EOS % 2.4 %; EOS ABS # 0.29 K/uL (0-0.5); HEMATOCRIT 38.7 % (37-47); HEMOGLOBIN 13.5 g/dL (12.0-16.0); IG# 0.06 K/uL (0.00-0.02); LYMPH % 26.8 %; MEAN CELL VOLUME 88.2 fL (80-100); MEAN CORPUSCULAR HEMOGLOBIN 30.8 pg (25-34); MEAN CORPUSCULAR HGB CONC 34.9 g/dl (32-36); MEAN PLATELET VOLUME 10.8 fL (7.4-10.4); MONO % 6.1 %; MONO ABS # 0.75 K/uL (0.11-0.59); NEUT % 63.8 %; NEUT ABS # 7.87 K/uL (1.4-6.5); PLATELET COUNT 247 K/uL (130-400); RED CELL DISTRIBUTION WIDTH CV 13.1 % (11.5-14.5); WHITE BLOOD COUNT 12.32 K/uL (4.8-10.8)
[2017-06-04 15:47] LABS: BLOOD UREA NITROGEN 12 mg/dl (7-18); CALCIUM 8.6 mg/dl (8.5-10.1); CARBON DIOXIDE 23 mmol/L (21-32); CREATININE 0.84 mg/dl (0.60-1.20); GLUCOSE 337 mg/dl (70-99); POTASSIUM 3.7 mmol/L (3.5-5.1); SODIUM 136 mmol/L (136-145)
== END | disposition home or self-care (01) ==
LOC: C.RAD 13:00
PROVIDERS: ATTEND Urology
DX: N20.1 Calculus of ureter (principal); N20.0 Calculus of kidney; Z96.0 Presence of urogenital implants

== ENCOUNTER 2017-06-18 09:25 | Day surgery (SDC) | payer BC ==
[2017-05-11 15:19] VITALS: BMI 60.0
[2017-06-17 08:24] VITALS: BMI 60.0
[~2017-06-18] VITALS: Ht 152.4 cm; Wt 140.9 kg
[~2017-06-18 09:25] MED LIST changes: +CEFAZOLIN 3000MG IV PUSH 22.5 ML IV SCH; -CIPR-255 PO; -KETO10TA PO; +LACTATED RINGER'S 1000ML 1,000 ML IV SCH; -ONDA4TAB10 SL; -OXYC-57 PO; -OXYC1TAB3 PO; -PHEN-775 PO; -SULF800T23 PO
[2017-06-18 09:54] VITALS: BP 144/76; PULSE 83; TEMP 36.6; O2SAT 94; Ht 152.4 cm; Wt 140.9 kg
--- NOTE | 2017-06-18 10:05 | History & Physical Bridge Note ---
H&P Re-Evaluation Bridge Note: I have examined the patient, reviewed the History & Physical and in the interval since the performance of the History & Physical I have noted the following changes of clinical significance: No changes noted
[2017-06-18] MEDS ORDERED: FENTANYL CITRATE INJ 50 MCG/1 ML 2 ML VIAL IV PRN (10:15)
[2017-06-18] MEDS ORDERED: MEPERIDINE HCL 25 MG/ML CARP IV PRN (10:15)
[2017-06-18] MEDS ORDERED: ATROPINE SULFATE 0.1 MG/ML 5ML SYR IV PRN (10:15)
[2017-06-18] MEDS ORDERED: HYDROmorphone INJ 1 MG/ML SYR IV PRN (10:15)
[2017-06-18] MEDS ORDERED: ONDANSETRON INJ 2 MG/ML 2 ML VIAL IV PRN (10:15)
[2017-06-18] MEDS ORDERED: LABETALOL HCL IV 5 MG/ML 20ML IV PRN (10:15)
[2017-06-18] MEDS ORDERED: EpHEDrine SULFATE INJ 50 MG/ML AMP IV PRN (10:15)
[2017-06-18] MEDS ORDERED: MIDAZOLAM HCL 1 MG/ML 2ML VIAL ONE (10:42)
[2017-06-18] MEDS ORDERED: FENTANYL CITRATE INJ 50 MCG/1 ML 2 ML VIAL ONE ×3 (10:42→11:40)
[2017-06-18] MEDS ORDERED: TAMS0.4C38 PO (10:54)
[2017-06-18] MEDS ORDERED: KETO10TA PO (10:54)
[2017-06-18] MEDS ORDERED: DTR/5 PO (10:54)
[2017-06-18] MEDS ORDERED: OXYC7.5T65 PO (10:54)
[2017-06-18] MEDS ORDERED: CIPR-255 PO (10:55)
--- NOTE | 2017-06-18 10:57 | Discharge Instructions ---
Discharge Instructions Date of Service Jun 18, 2017. Admission Reason for Admission: Stones Discharge Discharge Diagnosis / Problem: Stone Discharge Goals Goal(s): Decrease discomfort, Improve function Activity Recommendations Activity Limitations: resume your previous activity Lifting Limitations: gradually increase as tolerated Exercise/Sports Limitations: gradually increase as tolerated Shower/Bathe: no limitations . Instructions / Follow-Up Instructions / Follow-Up May have flank pain. May have pain in back or groin. May have blood in urine. Call if any fevers or chills. Current Hospital Diet Patient's current hospital diet: Discharge Diet Recommended Diet: Regular Diet Procedures Procedures Performed: Right Stent removal. Left Ureteroscopy with Laser lithotripsy and stent placement Pending Studies Studies pending at discharge: no Laboratory Results Hemoglobin A1c Test 04/30/17 07:38 Range/Units Estimated Average Glucose 232 mg/dl Hemoglobin A1c 9.7 H 4.5-5.6 % Lipid Panel Test 04/30/17 07:38 Range/Units Triglycerides Level 410 H 0-150 mg/dl Cholesterol Level 143 0-200 mg/dl HDL Cholesterol 23 mg/dl Cholesterol/HDL Ratio 6.2 LDL Cholesterol, Calculated mg/dl Medical Emergencies . Who to Call and When: Medical Emergencies: If at any time you feel your situation is an emergency, please call 911 immediately. . Non-Emergent Contact Non-Emergency issues call your: Primary Care Provider, Urologist Call Non-Emergent contact if: you have a fever, temperature is above 101, temperature is above 101.5, your pain is not controlled, your pain is worsening . . "Provider Documentation" section prepared by Sim Jackson. .
[2017-06-18] MEDS ORDERED: OXYCODONE/ACETAMINOPHEN 7.5-325 TAB PO PRN (11:00)
[2017-06-18] MEDS ORDERED: Cysto-Conray II 17.2% 250ML BOTTLE ONE (11:18)
--- NOTE | 2017-06-18 11:46 | [facility] Operative Report ---
Operative Report Operative Date Jun 18, 2017. Pre-Operative Diagnosis Bilateral kidney stone Post-Operative Diagnosis Same Procedure(s) Performed Cystoscopy with right stent removal. Left ureteroscopy with stent placement, retrograde pyelogram, and laser lithotripsy. Surgeon Manuel Estimated Blood Loss Minimal Findings bilateral Stents. Left stones in pelvis Specimens None Drains 6 x 26 Double J Left Anesthesia Type General Complication(s) none Disposition Recovery Room / PACU Indications Bilateral obstructing stones. Had right cleared. Here for stone treatment on left. Description of Procedure Patient was consented and brought back to the operating room. Patient was placed under anesthesia in the supine position and moved to the dorsal lithotomy position. Patient was prepped and draped in the regular sterile fashion. A time out was completed. A 30degree Cystoscope was placed into the bladder and the entire bladder was examined. The UO's were identified. The right stent was removed. The left was partially grasped and a wire placed. With the wire in place, a safety wire and ureteral access sheath was placed. The flexible ureteroscope was placed and taken to the pelvis. The entire pelvis was examined. The stones were visualized and pulverized with laser. Larger fragments were grasped and the stones removed. The stones adequately treated, the scope was slowly removed and all aspects of the ureter were examined. The safety wire was left in place. With the wire in place, a 6 x [26] Double J stent was placed. It was confirmed with fluoroscopy. With the stent in place, the bladder was emptied. The scope was removed. The patient was cleaned, aroused from anesthesia, and transferred to the pacu in stable condition having tolerated the procedure well with no complications. I was present and participated in all aspects of the procedure. The patient will be monitored in the PACU until transferred. I attest to the content of the Intraoperative Record and any orders documented therein. Any exceptions are noted below.
--- NOTE | 2017-06-18 11:58 | DIAGNOSTIC IMAGING REPORT ---
RETROGRADE INCLUDES KUB CLINICAL HISTORY: RT STENT REMOVAL/LEFT LASER LITHO AND LEFT EXCHANGE COMPARISON STUDY: KUB dated 06/04/2017 FINDINGS: 3 fluoroscopic spot images are provided for interpretation. 61 seconds of fluoroscopic time was utilized. The first image demonstrates a left sided ureteroscope at the L4 level. There is a guidewire looped within the upper pole calyx. There is mild fullness of the left renal collecting system. No collecting system filling defects are visualized The subsequent 2 films demonstrate a double-pigtail left-sided nephroureteral stent. IMPRESSION: Intraprocedural fluoroscopic spot images as described above. Electronically signed by: Steve Morel M.D. 06/18/2017 11:57 AM Dictated Date/Time: 06/18/2017 11:56 AM
[2017-06-18] MEDS ORDERED: ONDANSETRON INJ 2 MG/ML 2 ML VIAL ONE (12:02)
[2017-06-18] MEDS ORDERED: ROCURONIUM BROMIDE 10 MG/ML 5 ML VIAL IV ONE (12:02)
[2017-06-18] MEDS ORDERED: LIDOCAINE HCL 2% 2 ML VIAL (20MG/ML) ONE (12:02)
[2017-06-18] MEDS ORDERED: PROPOFOL IV EMULSION 10 MG/ML 20 ML VIAL IV ONE (12:02)
[2017-06-18] MEDS ORDERED: LARYING-O-JET KIT (LTA) ONE (12:02)
[2017-06-18] MEDS ORDERED: SUCCINYLCHOLINE CHLORIDE 20 MG/ML 10 ML VIAL IV ONE (12:02)
[2017-06-18 12:35] VITALS: BP 128/96; PULSE 84; TEMP 36.6; O2SAT 93
[2017-06-18] MEDS ORDERED: WATER, STERILE FOR INJ 10 ML VIAL ONE (12:54)
[2017-06-18 13:10] VITALS: BP 122/74; PULSE 77; O2SAT 92
[2017-06-18 13:24] VITALS: BP 127/82; PULSE 76; O2SAT 93
--- NOTE | 2017-06-18 13:24 | Anesthesiology Progress Note ---
Anesthesia Post Op Note Date & Time Jun 18, 2017 at 13:24 Vital Signs Pain Intensity: 5 Vital Signs Past 12 Hours Date Time Temp Pulse Resp B/P (MAP) Pulse Ox O2 Delivery O2 Flow Rate FiO2 06/18/17 13:10 77 18 122/74 92 Room Air 06/18/17 12:35 36.6 84 18 128/96 93 Nasal Cannula 3 06/18/17 12:30 77 18 140/85 94 Nasal Cannula 3 06/18/17 12:25 36.4 72 18 121/64 93 Nasal Cannula 3 06/18/17 12:20 72 17 127/74 94 Nasal Cannula 3 06/18/17 12:15 71 16 140/95 97 Oxymask 5 06/18/17 12:10 82 16 140/101 94 Oxymask 5 06/18/17 12:00 89 16 154/110 95 Oxymask 8 06/18/17 11:50 36.3 88 16 151/94 93 Oxymask 8 06/18/17 09:54 36.6 83 20 144/76 (98) 94 Room Air Notes Mental Status: alert / awake / arousable, participated in evaluation Pt Amnestic to Procedure: Yes Nausea / Vomiting: adequately controlled Pain: adequately controlled Airway Patency, RR, SpO2: stable & adequate BP & HR: stable & adequate Hydration State: stable & adequate Anesthetic Complications: no major complications apparent
== END 2017-06-18 13:26 | disposition home or self-care (01) ==
LOC: C.ACU 09:25
PROVIDERS: ATTEND Urology
DX: N20.0 Calculus of kidney (principal); E11.9 Type 2 diabetes mellitus without complications; E66.01 Morbid (severe) obesity due to excess calories; Z68.44 Body mass index [BMI] 60.0-69.9, adult; F32.9 Major depressive disorder, single episode, unspecified; F41.9 Anxiety disorder, unspecified; Z79.82 Long term (current) use of aspirin; Z79.899 Other long term (current) drug therapy; F17.200 Nicotine dependence, unspecified, uncomplicated; Z90.89 Acquired absence of other organs; Z82.49 Family history of ischemic heart disease and other diseases of the circulatory system; Z83.3 Family history of diabetes mellitus; Z81.8 Family history of other mental and behavioral disorders

== ENCOUNTER → 2017-06-24 | Outpatient (CLI) | payer BC ==
[~2017-06-24] MED LIST changes: -CEFAZOLIN 3000MG IV PUSH 22.5 ML IV SCH; +CIPR-255 PO; +IBUP-1451 PO; +KETO10TA PO; -LACTATED RINGER'S 1000ML 1,000 ML IV SCH; +OXYC1TAB3 PO; +SACC250C3 PO
== END | disposition home or self-care (01) ==
LOC: C.LAB 10:36
PROVIDERS: ATTEND Nurse Practitioner Adult Health
DX: N20.0 Calculus of kidney (principal); N20.1 Calculus of ureter; R30.0 Dysuria; R11.0 Nausea

== ENCOUNTER 2017-06-28 11:34 | Emergency (ER) | payer BC ==
[~2017-06-28] VITALS: Ht 152.4 cm; Wt 132.6 kg
[~2017-06-28 11:34] MED LIST changes: -IBUP-1451 PO; -OXYC1TAB3 PO; -SACC250C3 PO
[2017-06-28 11:39] VITALS: TEMP 36.6; Ht 152.4 cm; Wt 132.6 kg
--- NOTE | 2017-06-28 12:09 | EMERGENCY ROOM VISIT NOTE ---
History Report prepared by Miguel Ángel: Brandon Mahoney Under the Supervision of: Dr. Hebert Bonilla M.D. First contact with patient: 11:43 Chief Complaint: URINARY SYMPTOMS Stated Complaint: KIDNEY STENT,LEAKING URINE Nursing Triage Summary: pt reports she has stent and she is leaking urine started last night . stent placed by dr martin History of Present Illness The patient is a 37 year old female who presents to the Emergency Room with complaints of constant urination since last night. Patient states that urine " is just running out". She adds that she cannot hold her urine back. She states that she does not feel like her bladder has a chance to feel full. She states that she used pads last night and woke up with them "soaked". Patient states that she had a stent placed in her ureter on the by Dr. Jackson due to a kidney stone. She states that she was not informed post-operation that she would have a problem holding back her urine. She adds that she has a string hanging out of her urethra. She states that she is supposed to get the stent removed in 2 days. Patient states that she has a history of urinating herself when she coughs. Patient adds that she has children. She denies any pain, fevers , chills, coughs, or congestion. Patient states that she is currently employed. Source of History: patient Onset: Last night Position: other (Urethra) Timing: constant Modifying Factors (Relieving): other (None) Associated Symptoms: No fevers, No chills, No cough Note: Patient denies any pain or congestion. Review of Systems See HPI for pertinent positives and negatives. A total of ten systems were reviewed and were otherwise negative. Past Medical & Surgical Medical Problems: (1) Abdominal wall hernia (2) Achilles tendonitis, bilateral (3) Acute pharyngitis (4) Anxiety (5) Anxiety (6) Bronchospasm with bronchitis, acute (7) Bronchospasm with bronchitis, acute (8) CALCULUS OF URETER (9) Cellulitis (10) Cellulitis, abdominal wall (11) Chest pain (12) Diabetes mellitus type II, uncontrolled (13) Elevated blood pressure reading (14) Irritation of eye (15) Kidney calculi (16) MORBID OBESITY (17) Muscle strain of right upper extremity (18) Plantar fasciitis of left foot (19) Skin ulceration (20) Strain of right trapezius muscle (21) Tobacco use disorder (22) Vaginal bleeding Surgical Problems: (1) Previous section Social History Problems: (1) Diabetes Family History Diabetes mellitus FH: cancer Hypertension Kidney disease Kidney stones Social History Smoking Status: Current Every Day Smoker Alcohol Use: occasionally Drug Use: none Marital Status: Housing Status: lives with family Occupation Status: employed Current/Historical Medications Scheduled Lisinopril (Lisinopril), 5 MG PO QAM Oxybutynin Chloride (Ditropan), 5 MG PO TID Saccharomyces Boulardii (Florastor), 1 CAP PO BID Simvastatin (Simvastatin), 20 MG PO QPM Sitagliptin-Metformin Hcl (Janumet Xr), 1 TAB PO QAM Tamsulosin Hcl (Flomax), 0.4 MG PO QAM Venlafaxine Hcl (Venlafaxine Extended Rel), 37.5 MG PO QAM Scheduled PRN Ibuprofen Tab (Motrin), 800 MG PO Q8H PRN for Pain Ipratropium-Albuterol (Duoneb), 3 ML NEB Q4H PRN for SOB/Wheezing Ondansetron Hcl (Zofran), 4 MG PO UD PRN for Nausea Oxycodone Ir (Roxicodone Ir), 1-2 TAB PO Q4H PRN for Severe Pain Allergies Coded Allergies: No Known Allergies (Verified , 06/28/17) Physical Exam Vital Signs Date Time Temp Pulse Resp B/P (MAP) Pulse Ox O2 Delivery O2 Flow Rate FiO2 06/28/17 15:19 52 18 146/83 98 Room Air 06/28/17 13:37 53 22 152/88 95 Room Air 06/28/17 11:39 36.6 82 18 164/106 95 Room Air Physical Exam GENERAL: Awake, alert, fatigue-appearing, in no distress HENT: Normocephalic, atraumatic. Oropharynx unremarkable. Dry mucous membranes. EYES: Normal conjunctiva. Sclera non-icteric. NECK: Supple. No nuchal rigidity. FROM. No JVD. RESPIRATORY: Clear to auscultation. CARDIAC: Regular rate, normal rhythm. Extremities warm and well perfused. Pulses equal. ABDOMEN: Soft, non-distended. No tenderness to palpation. No rebound or guarding. No masses. RECTAL: Deferred. : Thread extending out from her urethra. MUSCULOSKELETAL: Chest examination reveals no tenderness. The back is symmetrical on inspection without obvious abnormality. There is no CVA tenderness to palpation. No joint edema. LOWER EXTREMITIES: Calves are equal size bilaterally and non-tender. No edema. No discoloration. NEURO: Normal sensorium. No sensory or motor deficits noted. SKIN: No rash or jaundice noted. Medical Decision & Procedures ER Provider Diagnostic Interpretation: Radiology results as stated below per my review and radiologist interpretation: KUB HISTORY: Acute incontinence with possible ureteral stent migration. incontinence, evaluate for left ureter stent migration COMPARISON: Retrograde cystourethrogram 06/18/2017, KUB to 02/06/2017 FINDINGS: The bowel gas pattern is non-obstructive. There is no organomegaly. Left ureteral stent has migrated inferiorly with distal portion extending 13 cm below the superior portion of the pubic symphysis. The superior portion of the stent is noted just inferior to the L3 transverse process. Renal shadows are partially obscured by bowel gas. No definite nephrolithiasis or ureteral calculi identified. Bone island of the left iliac crest. No pneumoperitoneum or pneumatosis. No fracture. IMPRESSION: Distal migration of the left ureteral stent, 13 cm below the superior portion of the left pubic symphysis. Electronically signed by: Marco A Conteh M.D. 06/28/2017 2:06 PM (RENAL)RETROPERITON COMP HISTORY: 37 years-old Female incontinence, ureteral stent, eval for possible stent migration left ureteral stent with acute incontinence. COMPARISON: Retrograde cystourethrogram 05/21/2017, CT 05/27/2017 TECHNIQUE: Multiple real-time sonographic images of the kidneys and urinary bladder were obtained assessing grayscale appearance and color flow FINDINGS: Study is limited secondary to patient body habitus. Liver appears enlarged and echogenic with poor through transmission compatible with fatty infiltration. The right kidney measures 11.3 cm in length. Right-sided nephrolithiasis redemonstrated with largest calculus measuring 5 mm within the inferior pole. No right-sided hydronephrosis or suspicious mass lesions identified. The left kidney measures 11.6 cm in length. The left ureteral stent is not well visualized. Echogenic nonshadowing foci throughout the left kidney suggest nephrolithiasis. No hydronephrosis. Urinary bladder appears decompressed and is not well seen. IMPRESSION: 1. Limited study secondary to patient body habitus. The previously described left ureteral stent is not well visualized. Correlation with follow-up KUB radiograph recommended. 2. Bilateral nephrolithiasis without hydronephrosis identified. 3. Hepatic steatosis. The above report was generated using voice recognition software. It may contain grammatical, syntax or spelling errors. Electronically signed by: Marco A Conteh M.D. 06/28/2017 1:10 PM Medications Administered Medications (Trade) Dose Ordered Sig/Hussein Route Start Time Stop Time Status Last Admin Dose Admin Ciprofloxacin (Cipro Tab) 500 mg NOW STAT PO 06/28/17 15:24 06/28/17 15:25 DC 06/28/17 15:59 500 MG ED Course 1146: The patient was evaluated in room B3B. A complete history and physical exam was performed. 1541: Patient's stent came out smoothly. Patient states that she is in no pain. 1559: I reevaluated the patient. Discussed results and discharge instructions. She verbalized understanding and agreement. The patient is ready for discharge. Medical Decision I reviewed the patient's past medical history, medications, and the nursing notes as described above. The patient's presentation and history were concerning for overflow incontinence , bladder spasm, and migration of uretal stent. The patient is a 37 y/o woman with a pmhx of rental stones s/p lithotripsy and ureteral stenting presents to the emergency department with constant urinary incontinence since last night per HPI. Of note, patient has lithotripsy and right ureter stent removal and left ureter stent replacement with Dr. Jackson on 06/19. On arrival the patient is in NAD, AFVSS. On intial exam string observed coming from urethra. US unremarkable but limited 2/2 habitus. KUB demonstrating 13 cm migration of left nephro-ureter stent. Patient re-examined and stent observed have migrated out of urethra by approximately 3cm. Case d/w Dr. Lindsey , urology material disposition inspector, who reviewed the patient's history and images and recommends stent removal. Recommends ppx ABX as well as analgesia. Patient already has appointment for stent removal on Thursday and so patient should keep appointment and obtain KUB prior to reassess for presence of stone fragments and possible need for repeat stent. Findings and plan for follow-up reviewed with patient. Patient agreeable and d/c'd per discharge instructions. Medication Reconcilliation Current Medication List: was personally reviewed by me Blood Pressure Screening Patient's blood pressure: Elevated blood pressure Blood pressure disposition: Elevated BP felt to be situational Impression Primary Impression: Migration of ureteral stent Scribe Attestation The scribe's documentation has been prepared under my direction and personally reviewed by me in its entirety. I confirm that the note above accurately reflects all work, treatment, procedures, and medical decision making performed by me. Departure Information Dispostion Home / Self-Care Prescriptions Oxycodone Ir (Roxicodone Ir) 5 Mg Tab 1-2 TAB PO Q4H Y for Severe Pain, #10 TAB Prov: Hebert Bonilla M.D. 06/28/17 Saccharomyces Boulardii (Florastor) 250 Mg Cap 1 CAP PO BID for 10 Days, #20 CAP Prov: Hebert Bonilla M.D. 06/28/17 Ibuprofen Tab (MOTRIN) 800 Mg Tab 800 MG PO Q8H Y for Pain for 7 Days, #21 TAB Prov: Hebert Bonilla M.D. 06/28/17 Referrals Nyasia Herrera D.O. (PCP) Sim Jackson, II., DO Forms HOME CARE DOCUMENTATION FORM, IMPORTANT VISIT INFORMATION Patient Instructions My [facility], Stents Ureteral Additional Instructions Please follow up with your urologist, Dr. Jackson, on Thursday as scheduled for re-evaluation. You should contact the office on Thursday to arrange for an x-ray prior to your visit. Your symptoms were due to migration of your stent. The stent was subsequently removed. Otherwise, your exam, ultrasound, and xray did not show signs of an emergent condition at this time. Acetaminophen or ibuprofen for pain and fevers as needed. Ciprofloxacin as directed. Florastor, probiotic, to help prevent antibiotic associated diarrhea. Oxycodone for breakthrough pain as needed. Drink plenty of fluids to ensure hydration. Return to the emergency department for worsening symptoms as described in the accompanying instructions.
--- NOTE | 2017-06-28 13:11 | DIAGNOSTIC IMAGING REPORT ---
(RENAL)RETROPERITON COMP HISTORY: 37 years-old Female incontinence, ureteral stent, eval for possible stent migration left ureteral stent with acute incontinence. COMPARISON: Retrograde cystourethrogram 05/21/2017, CT 05/27/2017 TECHNIQUE: Multiple real-time sonographic images of the kidneys and urinary bladder were obtained assessing grayscale appearance and color flow FINDINGS: Study is limited secondary to patient body habitus. Liver appears enlarged and echogenic with poor through transmission compatible with fatty infiltration. The right kidney measures 11.3 cm in length. Right-sided nephrolithiasis redemonstrated with largest calculus measuring 5 mm within the inferior pole. No right-sided hydronephrosis or suspicious mass lesions identified. The left kidney measures 11.6 cm in length. The left ureteral stent is not well visualized. Echogenic nonshadowing foci throughout the left kidney suggest nephrolithiasis. No hydronephrosis. Urinary bladder appears decompressed and is not well seen. IMPRESSION: 1. Limited study secondary to patient body habitus. The previously described left ureteral stent is not well visualized. Correlation with follow-up KUB radiograph recommended. 2. Bilateral nephrolithiasis without hydronephrosis identified. 3. Hepatic steatosis. The above report was generated using voice recognition software. It may contain grammatical, syntax or spelling errors. Electronically signed by: Marco A Conteh M.D. 06/28/2017 1:10 PM Dictated Date/Time: 06/28/2017 1:06 PM
--- NOTE | 2017-06-28 14:07 | DIAGNOSTIC IMAGING REPORT ---
KUB HISTORY: Acute incontinence with possible ureteral stent migration. incontinence, evaluate for left ureter stent migration COMPARISON: Retrograde cystourethrogram 06/18/2017, KUB to 02/06/2017 FINDINGS: The bowel gas pattern is non-obstructive. There is no organomegaly. Left ureteral stent has migrated inferiorly with distal portion extending 13 cm below the superior portion of the pubic symphysis. The superior portion of the stent is noted just inferior to the L3 transverse process. Renal shadows are partially obscured by bowel gas. No definite nephrolithiasis or ureteral calculi identified. Bone island of the left iliac crest. No pneumoperitoneum or pneumatosis. No fracture. IMPRESSION: Distal migration of the left ureteral stent, 13 cm below the superior portion of the left pubic symphysis. Electronically signed by: Marco A Conteh M.D. 06/28/2017 2:06 PM Dictated Date/Time: 06/28/2017 2:03 PM
[2017-06-28 15:19] VITALS: BP 146/83; PULSE 52; O2SAT 98
[2017-06-28] MEDS ORDERED: CIPROFLOXACIN 500 MG TAB PO STA (15:24)
[2017-06-28] MEDS ORDERED: OXYC1TAB3 PO (15:45)
[2017-06-28] MEDS ORDERED: IBUP-1451 PO (15:45)
[2017-06-28] MEDS ORDERED: SACC250C3 PO (15:45)
== END 2017-06-28 16:04 | disposition home or self-care (01) ==
LOC: C.EDB 11:36
DX: T83.122A Displacement of indwelling ureteral stent, initial encounter (principal); Y73.2 Prosthetic and other implants, materials and accessory gastroenterology and urology devices associated with adverse incidents; Z96.0 Presence of urogenital implants; E11.9 Type 2 diabetes mellitus without complications; F17.200 Nicotine dependence, unspecified, uncomplicated; Z79.84 Long term (current) use of oral hypoglycemic drugs; Z83.3 Family history of diabetes mellitus; Z82.49 Family history of ischemic heart disease and other diseases of the circulatory system; Z84.1 Family history of disorders of kidney and ureter

== ENCOUNTER → 2017-07-06 | Outpatient (CLI) | payer BC ==
[~2017-07-06] MED LIST changes: -CIPR-255 PO; +IBUP-1451 PO; -KETO10TA PO; +OXYC1TAB3 PO; -OXYC7.5T65 PO; +SACC250C3 PO
--- NOTE | 2017-07-06 09:45 | DIAGNOSTIC IMAGING REPORT ---
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 No significant left-sided nephrocalcinosis. Small calcification central right kidney unchanged. IMPRESSION: 1. Interval removal of left-sided ureteral stent. 2. No significant left-sided nephrocalcinosis. 3. Unchanged small calcification central right kidney. The above report was generated using voice recognition software. It may contain grammatical, syntax or spelling errors. Electronically signed by: Jacoby Tejeda M.D. 07/06/2017 9:44 AM Dictated Date/Time: 07/06/2017 9:42 AM
== END | disposition home or self-care (01) ==
LOC: C.RAD 09:04
PROVIDERS: ATTEND Urology
DX: N20.1 Calculus of ureter (principal)

== ENCOUNTER 2022-03-28 09:57 | Observation (INO) ==
[2022-03-28] MEDS ORDERED: AMPICILLIN/SULBACTAM SOD 3,000 MG in 0.9 % SODIUM CHLORIDE 100 ML IV STA (10:19)
[2022-03-28] MEDS ORDERED: MoRPHine SULFATE 10 MG/ML CARP/VIAL IV STA (10:19)
[2022-03-28] MEDS ORDERED: SODIUM CHLORIDE 0.9% 1000ML 1,000 ML IV ONE (10:19)
[2022-03-28] MEDS ORDERED: ONDANSETRON INJ 2 MG/ML 2 ML VIAL IV STA (10:19)
--- NOTE | 2022-03-28 10:25 | Emergency Department Note ---
Impression & Plan Pain of right breast, Abscess, Leukocytosis ED Provider Note NAME: DINH LOPES AGE: 42 SEX: F : 1980 ARRIVES VIA: Walk-In INFORMANT: [Patient] ED PROVIDER(S): [Braulio Marie MD] CHIEF COMPLAINT: Breast pain HISTORY OF PRESENT ILLNESS: The patient is a 42-year-old female presents with about a week of right breast pain and swelling and redness. The patient states that the pain is severe. She has had infection to this breast before but has always been able to clear things with just warm compresses. She is not currently on antibiotics. She has had some chills, no fever documented. She states the pain worsens to touch the area or even to take a breath or move certain ways. No vomiting or diarrhea. The patient is not diabetic. She has never had surgical work on the breast. REVIEW OF SYSTEMS: See HPI for pertinent positives and negatives. A total of ten systems were reviewed and were otherwise negative. PMHx/PSHx: See Below SOCIAL HISTORY: See Below. PHYSICAL EXAM: GENERAL: Patient is in no acute distress. HEENT: No acute trauma, normocephalic atraumatic, mucous membranes moist, no nasal congestion, no scleral icterus. NECK: No stridor, no adenopathy, no meningismus, trachea is midline. LUNGS: A few scattered wheezes heard, no respiratory distress, breath sounds equal. HEART: Without murmurs gallops or rubs, regular rate and rhythm. ABDOMEN: Soft, nontender, bowel sounds positive, no peritonitis. Obese. EXTREMITIES: No cyanosis, full range of motion of all the joints without pain or difficulty, no signs for acute trauma. NEUROLOGIC: Oriented x 3, no acute motor or sensory deficits, no focal weakness. SKIN: No jaundice, no diaphoresis. Breast: The patient's right breast is erythematous, tender and firm around the areola as well as the nipple. No drainage. DIFFERENTIAL DIAGNOSIS: Abscess, cellulitis, bacteremia, sepsis, anemia, dehydration, electrolyte abnormality, among others. EMERGENCY DEPARTMENT COURSE/PROCEDURES: MEDICAL DECISION MAKING: There is a mild leukocytosis, this certainly could be consistent with infection. There was a normal hemoglobin and platelet count. No renal failure or significant electrolyte abnormality. Glucose was a bit elevated at 278. Lactic acid level was not elevated making severe sepsis less likely. No concerning liver enzyme elevation. testing was negative. COVID test returned negative. Right breast ultrasound did show a 5 cm abscess. The patient was quite uncomfortable on exam. She was given IV morphine for pain, a second dose of IV morphine was given. She received IV saline and IV Zofran. She was given IV Unasyn as antibiotic coverage. I did speak with general surgery. The patient was seen by general surgery here in the ED. She is going to go to the operating room for surgical intervention. The patient is aware of all her findings. Past Med/Surg History Medical History Abdominal pain Anxiety Bronchitis Depression with anxiety Diabetes mellitus type II, uncontrolled Gastritis History of COPD History of venous thromboembolism Kidney calculi Tobacco use disorder Urinary bladder incontinence Surgical History No pertinent past surgical history Family History Other No pertinent family history Social History Smoking Status: Current every day smoker Tobacco Type: Cigarettes Second Hand Exposure: Yes; Hx Alcohol Use: Yes ("occasionally") Alcohol type: beer Alcohol Intake F requency: Monthly or Less Hx Substance Use: No Preferred Language: Sami Communication Ability: Effective Visual Impairment: No Limitations Hearing Ability: Normal Transition Teacher Required: No Beliefs That Will Affect Care: None marital status: Current Living Situation: Family and Significant Other current occupational status: employed How many Children do You have: 3 Feels Safe at Home: Yes Childhood Exposure to Second-Hand Smoke: No caffeine: Yes during the past year weight has: remained stable Dental Care, Regularly: No Physical Activity Frequency: 5-6 Times per Week Seatbelt Use: always Sunscreen Use: No Do you think of yourself as: straight/heterosexual Gender Identity: Female Assistive Devices: None Allergies Allergies Allergy/AdvReac Type Severity Reaction Status Date / Time No Known Allergies Allergy Verified 02/20/22 08:42 Home Meds Home Medications Medication Instructions Recorded Confirmed insulin glargine 100 unit/mL 20 unit subcut HS 11/19/21 02/20/22 subcutaneous solution (Lantus U-100 Insulin) insulin lispro 100 unit/mL 1 sliding scale dose subcut 11/19/21 02/20/22 subcutaneous solution (Humalog USEASDIRECTD U-100 Insulin) ipratropium 0.5 mg-albuterol 3 mg 3 ml inhalation QID PRN 02/20/22 02/20/22 (2.5 mg base)/3 mL nebulization soln Previous Rx's Medication Instructions Recorded albuterol sulfate 90 mcg/actuation 2 puff inhalation Q4 PRN Shortness 02/20/22 aerosol inhaler Of Breath Or Wheezing #6.7 grams oxybutynin chloride 10 mg 10 mg PO DAILY #30 tabs 02/20/22 tablet,extended release 24 hr venlafaxine 37.5 mg 37.5 mg PO HS #30 caps 02/20/22 capsule,extended release 24 hr (Effexor XR) albuterol sulfate 90 mcg/actuation 2 inh inhalation Q6H #8.5 grams 03/15/22 aerosol inhaler (Proventil HFA) Results & Data (ED) Vital Signs Vital Signs - 24 hr 03/28/22 10:02 Temperature 37.0 C Temperature Source Temporal Artery Scan Pulse Rate 75 Pulse Rhythm Regular Pulse Strength Normal Respiratory Rate 18 Respiratory Effort / Characteristics Non-Labored Spontaneous Respiratory Depth Normal Respiratory Pattern Regular Blood Pressure 174/100 H Blood Pressure Mean 124 Blood Pressure Position Sitting Pulse Oximetry 95 Oxygen Delivery Method Room Air Sepsis Recent Fever Within 48 Hours No Sepsis New/Unexplained Change in Mental Status No Sepsis Action Taken by Nursing No Action Required Home Medications Current Medication List: was personally reviewed by me Laboratory Data Attestation: I reviewed the patient's lab results. Result diagrams: 03/28/22 10:31 03/28/22 10:31 Lab Results 03/28/22 03/28/22 03/28/22 Range/Units 10:31 10:31 10:31 WBC 13.37 H (4.8-10.8) K/ul RBC 4.25 (3.93-5.22) M/uL Hgb 13.3 (12.0-16.0) g/dl Hct 38.6 (34.1-44.9) % MCV 90.8 (80.0-100.0) fL MCH 31.3 (25.0-34.0) pg MCHC 34.5 (32.0-36.0) g/dL RDW Std Deviation 42.6 (36.4-46.3) fL RDW Coeff of Tabitha 13.0 (11.5-14.5) % Plt Count 286 (130-400) K/uL MPV 10.4 (9.4-12.3) fL Immature Gran % (Auto) 0.5 % Neut % (Auto) 73.8 % Lymph % (Auto) 18.0 % [place] % (Auto) 5.8 % Eos % (Auto) 1.4 % Baso % (Auto) 0.5 % Neut # (Auto) 9.85 H (1.4-6.5) K/uL Lymph # (Auto) 2.41 (1.2-3.4) K/uL [place] # (Auto) 0.78 (0.24-0.82) K/uL Eos # (Auto) 0.19 (0-0.50) K/uL Baso # (Auto) 0.07 (0-0.2) K/uL Immature Gran # (Auto) 0.07 H (0.00-0.02) K/uL Sodium 136 (136-145) mmol/L Potassium 4.2 (3.5-5.1) mmol/L Chloride 107 (98-107) mmol/L Carbon Dioxide 20 L (21-32) mmol/L Anion Gap 9 (3-11) BUN 12 (6-23) mg/dl Creatinine 0.58 L (0.6-1.2) mg/dl Est Cr Clr Drug Dosing 161.7 ml/min Est GFR ( Amer) 132.7 ml/min Est GFR (Non-Af Amer) 114.5 ml/min BUN/Creatinine Ratio 20.7 H (10-20) Glucose 278 H (70-99(Fasting)) mg/dl Lactate (0.4-2.0) mmol/L Calcium 9.1 (8.5-10.1) mg/dl Total Bilirubin 0.3 (0.2-1.0) mg/dl AST 8 L (13-39) U/L ALT 11 (7-52) U/L Alkaline Phosphatase 89 (34-104) U/L Total Protein 7.2 (6.0-8.3) gm/dl Albumin 3.6 (3.4-5.0) gm/dl Globulin 3.6 (2.5-4.0) gm/dl Albumin/Globulin Ratio 1.0 (0.9-2) HCG, Qual Negative (Negative) SARS-CoV-2, RNA, NAAT (NEGATIVE) 03/28/22 03/28/22 Range/Units 10:31 12:55 WBC (4.8-10.8) K/ul RBC (3.93-5.22) M/uL Hgb (12.0-16.0) g/dl Hct (34.1-44.9) % MCV (80.0-100.0) fL MCH (25.0-34.0) pg MCHC (32.0-36.0) g/dL RDW Std Deviation (36.4-46.3) fL RDW Coeff of Tabitha (11.5-14.5) % Plt Count (130-400) K/uL MPV (9.4-12.3) fL Immature Gran % (Auto) % Neut % (Auto) % Lymph % (Auto) % [place] % (Auto) % Eos % (Auto) % Baso % (Auto) % Neut # (Auto) (1.4-6.5) K/uL Lymph # (Auto) (1.2-3.4) K/uL [place] # (Auto) (0.24-0.82) K/uL Eos # (Auto) (0-0.50) K/uL Baso # (Auto) (0-0.2) K/uL Immature Gran # (Auto) (0.00-0.02) K/uL Sodium (136-145) mmol/L Potassium (3.5-5.1) mmol/L Chloride (98-107) mmol/L Carbon Dioxide (21-32) mmol/L Anion Gap (3-11) BUN (6-23) mg/dl Creatinine (0.6-1.2) mg/dl Est Cr Clr Drug Dosing ml/min Est GFR ( Amer) ml/min Est GFR (Non-Af Amer) ml/min BUN/Creatinine Ratio (10-20) Glucose (70-99(Fasting)) mg/dl Lactate 0.9 (0.4-2.0) mmol/L Calcium (8.5-10.1) mg/dl Total Bilirubin (0.2-1.0) mg/dl AST (13-39) U/L ALT (7-52) U/L Alkaline Phosphatase (34-104) U/L Total Protein (6.0-8.3) gm/dl Albumin (3.4-5.0) gm/dl Globulin (2.5-4.0) gm/dl Albumin/Globulin Ratio (0.9-2) HCG, Qual (Negative) SARS-CoV-2, RNA, NAAT NEGATIVE (NEGATIVE) Administered Medications Discontinued Medications Ampicillin Sodium/Sulbactam Sodium 3,000 mg/ Sodium Chloride 108 mls @ 200 mls/hr IV NOW STA; Protocol Stop: 03/28/22 10:51 Last Infusion: 03/28/22 11:37 Dose: 0 mls/hr Documented By: Admin: 03/28/22 10:54 Dose: 200 mls/hr Documented By: MT Sodium Chloride (Nss 1000ml) 1,000 mls @ 999 mls/hr IV .Q1H1M ONE Stop: 03/28/22 11:19 Last Infusion: 03/28/22 11:37 Dose: 0 mls/hr Documented By: Admin: 03/28/22 10:34 Dose: 999 mls/hr Documented By: MT Morphine Sulfate (Morphine Sulfate 10 Mg/Ml Carp/Vial) 6 mg IV NOW STA Stop: 03/28/22 10:20 Last Admin: 03/28/22 10:33 Dose: 6 mg Documented By: MT Ondansetron HCl (Ondansetron Inj 2 Mg/Ml 2 Ml Vial) 4 mg IV NOW STA Stop: 03/28/22 10:20 Last Admin: 03/28/22 10:33 Dose: 4 mg Documented By: MT Imaging Data Radiologist's Impression: Breast Ultrasound 03/28/22 10:19 US breast RT limited CLINICAL HISTORY: right breast abscess COMPARISON STUDY: None. FINDINGS: Real-time sonographic imaging of the right breast was performed with media sales representative images. At the 12:00 location of the right breast there is a com plex fluid collection measuring 5.1 x 2.6 x 3.5 cm. There is associated skin thickening and increased vascularity within the surrounding echogenic fat. Therefore, this favors an abscess. IMPRESSION: A 5.1 x 2.8 x 3.5 cm complex fluid collection within the right 12:00 breast likely representing an abscess. ACT 112: Negative or not required by law. Electronically signed by: Joe Choi M.D. 03/28/2022 11:24 AM Discharge Plan Visit Data Chief Complaint: Breast Pain/Problems Stated Complaint: INFECTION RIGHT BREAST, NAUSEOUS ED Provider: Braulio Marie Discharge Problem: Pain of right breast, Abscess, Leukocytosis Patient Disposition: Still a Patient Condition: Good Forms Stand Alone Forms: My aCon Prescriptions Prescriptions: No Action albuterol sulfate 90 mcg/actuation HFA aerosol inhaler 2 puff INHALATION Q4 PRN (Reason: Shortness Of Breath Or Wheezing) Qty: 6.7 4RF ipratropium-albuterol 0.5 mg-3 mg(2.5 mg base)/3 mL solution for nebulization 3 ml inhalation QID PRN venlafaxine [Effexor XR] 37.5 mg capsule,extended release 24hr 37.5 mg PO HS Qty: 30 5RF oxybutynin chloride 10 mg tablet extended release 24hr 10 mg PO DAILY Qty: 30 2RF insulin glargine [Lantus U-100 Insulin] 100 unit/mL Solution 20 unit SUBCUT HS insulin lispro [Humalog U-100 Insulin] 100 unit/mL Solution 1 sliding scale dose SUBCUT USEASDIRECTD albuterol sulfate [Proventil HFA] 90 mcg/actuation HFA aerosol inhaler 2 inh inhalation Q6H Qty: 8.5 0RF Referrals Referrals: Mary Jane Huang MD [Primary Care Provider] -
[2022-03-28 10:41] LABS: Basophils # (auto) 0.07 K/uL (0-0.2); Basophils % (auto) 0.5 %; Eosinophils # (auto) 0.19 K/uL (0-0.50); Eosinophils % (auto) 1.4 %; Hematocrit (blood only) 38.6 % (34.1-44.9); Hemoglobin 13.3 g/dl (12.0-16.0); Immature Granulocytes # (auto) 0.07 K/uL (0.00-0.02); Immature Granulocytes % (auto) 0.5 %; Lymphocytes # (auto) 2.41 K/uL (1.2-3.4); Mean Corpuscular Hemoglobin 31.3 pg (25.0-34.0); Mean Corpuscular Hgb Conc 34.5 g/dL (32.0-36.0); Mean Corpuscular Volume 90.8 fL (80.0-100.0); Mean Platelet Volume 10.4 fL (9.4-12.3); Monocytes # (auto) 0.78 K/uL (0.24-0.82); Monocytes % (auto) 5.8 %; Neutrophils # (auto) 9.85 K/uL (1.4-6.5); Neutrophils % (auto) 73.8 %; Platelet Count 286 K/uL (130-400); RDW Standard Deviation 42.6 fL (36.4-46.3); Red Blood Count 4.25 M/uL (3.93-5.22); White Blood Count 13.37 K/ul (4.8-10.8)
[2022-03-28 10:56] LABS: Pregnancy Test, Serum Negative (Negative)
[2022-03-28 11:10] LABS: Albumin Level 3.6 gm/dl (3.4-5.0); BUN Creatinine Ratio 20.7 (10-20); Bilirubin,Total 0.3 mg/dl (0.2-1.0); Calcium 9.1 mg/dl (8.5-10.1); Creatinine Clr Calc Pharmacy 161.7 ml/min; Est GFR (African American) 132.7 ml/min; Est GFR (Non-African American) 114.5 ml/min; Globulin 3.6 gm/dl (2.5-4.0); Potassium 4.2 mmol/L (3.5-5.1); Total Protein 7.2 gm/dl (6.0-8.3)
--- NOTE | 2022-03-28 11:25 | Ultrasound Report ---
US breast RT limited CLINICAL HISTORY: right breast abscess COMPARISON STUDY: None. FINDINGS: Real-time sonographic imaging of the right breast was performed with warehouse representative images. At the 12:00 location of the right breast there is a complex fluid collection measuring 5.1 x 2.6 x 3.5 cm. There is associated skin thickening and increased vascularity within the surrounding echogeni c fat. Therefore, this favors an abscess. IMPRESSION: A 5.1 x 2.8 x 3.5 cm complex fluid collection within the right 12:00 breast likely repre senting an abscess. ACT 112: Negative or not required by law. Electronically signed by: Joe Choi M.D. 03/28/2022 11:24 AM
--- NOTE | 2022-03-28 13:07 | History & Physical Report ---
Date of Service March 28, 2022 Assessment & Plan (1) Abscess of right breast: Plan: Ultrasound images and results personally viewed by myself She has a right breast retroareolar abscess sonographically as well as on clinical exam She also has a smaller inferior right chest wall abscess draining some foul- smelling fluid We will plan to take her to the operating room for incision and drainage of both lesions We will admit her for IV antibiotics Keep n.p.o. for now Pain control as needed (2) Chest wall abscess: History of Present Illness Chief Complaint: Right breast and right chest wall abscess Primary Care Provider: Mary Jane Huang MD Is a 42-year-old female who presented to the ER with increased right breast and right lower chest pain. She states that she started having pain in the right breast starting on Thursday. This continued to increase in the areola and nipple started to become erythematous and extremely painful for which she came to the ER. She denies any fevers or chills. She denies any drainage from the area. She also has a small area on the right chest that is tender and draining some foul-smelling fluid. She has a history of diabetes for which she takes insulin. She is a smoker. Ultrasound of the right breast in the ER revealed a 5 cm abscess. Allergies Allergy/AdvReac Type Severity Reaction Status Date / Time No Known Allergies Allergy Verified 02/20/22 08:42 Home Medications Medication Instructions Recorded Confirmed Type insulin glargine 100 unit/mL 20 unit subcut HS 11/19/21 02/20/22 History subcutaneous solution (Lantus U-100 Insulin) insulin lispro 100 unit/mL 1 sliding scale dose subcut 11/19/21 02/20/22 History subcutaneous solution (Humalog USEASDIRECTD U-100 Insulin) albuterol sulfate 90 mcg/actuation 2 puff inhalation Q4 PRN Shortness 02/20/22 Rx aerosol inhaler Of Breath Or Wheezing #6.7 grams ipratropium 0.5 mg-albuterol 3 mg 3 ml inhalation QID PRN 02/20/22 02/20/22 History (2.5 mg base)/3 mL nebulization soln oxybutynin chloride 10 mg 10 mg PO DAILY #30 tabs 02/20/22 02/20/22 Rx tablet,extended release 24 hr venlafaxine 37.5 mg 37.5 mg PO HS #30 caps 02/20/22 02/20/22 Rx capsule,extended release 24 hr (Effexor XR) albuterol sulfate 90 mcg/actuation 2 inh inhalation Q6H #8.5 grams 03/15/22 Rx aerosol inhaler (Proventil HFA) Past Med/Surg History Medical History Abdominal pain Anxiety Bronchitis Depression with anxiety Diabetes mellitus type II, uncontrolled Gastritis History of COPD History of venous thromboembolism Kidney calculi Tobacco use disorder Urinary bladder incontinence Surgical History No pertinent past surgical history Family History Other No pertinent family history Social History Smoking Status: Current every day smoker Tobacco Type: Cigarettes Second Hand Exposure: Yes; Hx Alcohol Use: Yes ("occasionally") Alcohol type: beer Alcohol Intake Frequency: Monthly or Less Hx Substance Use: No Preferred Language: South Korean Communication Ability: Effective Visual Impairment: No Limitations Hearing Ability: Normal Wool Presser Required: No Beliefs That Will Affect Care: None marital status: Current Living Situation: Family and Significant Other current occupational status: employed How many Children do You have: 3 Feels Safe at Home: Yes Childhood Exposure to Second-Hand Smoke: No caffeine: Yes during the past year weight has: remained stable Dental Care, Regularly: No Physical Activity Frequency: 5-6 Times per Week Seatbelt Use: always Sunscreen Use: No Do you think of yourself as: straight/heterosexual Gender Identity: Female Assistive Devices: None Review of Systems Constitutional: no fever and no chills Eyes: no worsening vision Ear, Nose, Mouth, Throat: no ear pain and no hearing loss Respiratory: no cough and no dyspnea Cardiovascular: no chest pain and no dyspnea on exertion Gastrointestinal: no abdominal pain, no nausea and no vomiting Genitourinary: no dysuria Musculoskeletal: no back pain and no neck pain Integumentary: + non-healing lesions, + skin ulcer, + erythema, + breast lump, + breast pain, + breast skin changes and + breast swelling Neurologic: no headache(s) Psychiatric: no behavioral changes and no depression Physical Exam Constitutional: WD/WN, vitals as above Eyes: PERRL, conjunctivae normal, anicteric sclerae ENMT: external ear and nose normal, oropharynx normal Neck: trachea midline, no thyromegaly Respiratory: normal respiratory effort, lungs clear to auscultation Cardiovascular: RRR, no murmur, no edema Chest (Breasts): Additional Comments: Right breast with 8 cm area of erythema, induration surrounding the nipple areolar complex consistent with abscess Gastrointestinal (Abdomen): normal bowel sounds, soft, nontender, no hepatosplenomegaly Musculoskeletal: no cyanosis or clubbing, extremities motor strength 5/5 Skin: no rashes, warm and dry 3 cm erythematous fluctuant area of the lower right chest consistent with a chest wall abscess Neurologic: PERRL, EOMI, accommodation nl, no face palsy, no dysarthria Psychiatric: A+Ox3, euthymic affect Results & Data Results & Data ([facility]) Vital Signs (Past 12 Hours) Vital Signs Temp Pulse Resp BP Pulse Ox O2 Del Method 03/28/22 10:02 37.0 C 75 18 174/100 H 95 Room Air Diagnostic Findings US breast RT limited CLINICAL HISTORY: right breast abscess COMPARISON STUDY: None. FINDINGS: Real-time sonographic imaging of the right breast was performed with c s s representative images. At the 12:00 location of the right breast there is a complex fluid collection measuring 5.1 x 2.6 x 3.5 cm. There is associated skin thickening and increased vascularity within the surrounding echogenic fat. Therefore, this favors an abscess. IMPRESSION: A 5.1 x 2.8 x 3.5 cm complex fluid collection within the right 12:00 breast likely representing an abscess. PG Care Time/CCT Total # of Minutes Spent Total Time Spent with Patient: Total time spent is greater than 50% in coordination of care (as documented) at patient's floor/unit and/or counseling patient: Coding Level of Care Code 05467 Initial Inpt Care Lvl 3 Diagnoses Abscess of right breast N61.1 Chest wall abscess L02.213
[2022-03-28] MEDS ORDERED: MoRPHine SULFATE 4 MG/ML 1 ML CARP\\VIAL IV STA (13:14)
[2022-03-28] MEDS ORDERED: fentaNYL citrate 100 MCG/2 ML VIAL ONE ×2 (13:17→14:33)
[2022-03-28] MEDS ORDERED: MIDAZOLAM HCL 1 MG/ML 2ML VIAL ONE (13:17)
[2022-03-28] MEDS ORDERED: DEXAMETHASONE SOD INJ 4 MG/ML VIAL ONE (13:17)
[2022-03-28] MEDS ORDERED: ONDANSETRON INJ 2 MG/ML 2 ML VIAL ONE (13:17)
[2022-03-28] MEDS ORDERED: PROPOFOL IV EMULSION 10 MG/ML 20 ML VIAL IV ONE (13:17)
[2022-03-28] MEDS ORDERED: BUPIVACAINE/EPINEPHRINE 0.25% 1:200,000 30 ML VIAL ONE (13:33)
[2022-03-28] MEDS ORDERED: HYDROmorphone INJ 2 MG/ML SYR/VIAL IV PRN (13:58)
[2022-03-28] MEDS ORDERED: ePHEDrine sulfate 50 MG/ML AMP IV PRN (13:58)
[2022-03-28] MEDS ORDERED: ONDANSETRON INJ 2 MG/ML 2 ML VIAL IV PRN ×2 (13:58→17:41)
[2022-03-28] MEDS ORDERED: ATROPINE SULFATE 0.1 MG/ML 10ML SYR IV PRN (13:58)
--- NOTE | 2022-03-28 13:58 | Anesthesiology Consultation ---
Date of Service March 28, 2022 Assessment & Plan ASA ASA3 Proposed Anesthesia Anesthesia Type: General Risk / Benefits Reviewed With: PT / POA / Parent / Guardian, Accepts Plan and Informed Consent Obtained History Surgery Operation Date: 03/28/22 07:00 Proposed Procedures p Incision and Drainage Right Breast Abscess and Right Chest Wall Abscess - Bang Bucio DO Height/Weight Height: 5 ft 4 in Weight: 118.6 kg Allergies Allergy/AdvReac Type Severity Reaction Status Date / Time No Known Allergies Allergy Verified 02/20/22 08:42 Medications Home Medications Medication Instructions Recorded Confirmed Last Taken insulin glargine 100 unit/mL 20 unit subcut HS 11/19/21 02/20/22 11/18/21 subcutaneous solution (Lantus U-100 Insulin) insulin lispro 100 unit/mL 1 sliding scale dose subcut 11/19/21 02/20/22 Unknown subcutaneous solution (Humalog USEASDIRECTD U-100 Insulin) albuterol sulfate 90 mcg/actuation 2 puff inhalation Q4 PRN Shortness 02/20/22 Unknown aerosol inhaler Of Breath Or Wheezing #6.7 grams ipratropium 0.5 mg-albuterol 3 mg 3 ml inhalation QID PRN 02/20/22 02/20/22 Unknown (2.5 mg base)/3 mL nebulization soln oxybutynin chloride 10 mg 10 mg PO DAILY #30 tabs 02/20/22 02/20/22 Unknown tablet,extended release 24 hr venlafaxine 37.5 mg 37.5 mg PO HS #30 caps 02/20/22 02/20/22 Unknown capsule,extended release 24 hr (Effexor XR) albuterol sulfate 90 mcg/actuation 2 inh inhalation Q6H #8.5 grams 03/15/22 Unknown aerosol inhaler (Proventil HFA) Past Medical History Medical History Abdominal pain Anxiety Bronchitis Depression with anxiety Diabetes mellitus type II, uncontrolled Gastritis History of COPD History of venous thromboembolism Kidney calculi Tobacco use disorder Urinary bladder incontinence Exercise / Class Metabolic Activity II 4-5 Yardwork/Stairs/Walk up hill Past Family History Family History Other No pertinent family history Past Surgical History Surgical History No pertinent past surgical history Past Anesthesia History No Hx of Anesthesia Complications and No Family Hx of Anesthesia Complications History of PONV No Hx of PONV and No Hx of Motion Sickness Social History Smoking Status: Current every day smoker tobacco type: cigarettes Hx Alcohol Use: Yes ("occasionally") Alcohol type: beer alcohol intake frequency: other Hx Substance Use: No Review of Systems denies fever/cough/ colds/ chest pain/ SOB/ DEONNA denies DEONNA Physical Exam Vital Signs Last Vital Signs Temp 37.0 C 03/28/22 10:02 Pulse 70 03/28/22 13:33 Resp 20 03/28/22 13:33 BP 135/107 H 03/28/22 13:33 Pulse Ox 94 03/28/22 13:33 O2 Del Method 03/28/22 13:33 ENMT Mouth: + edentulous; no TMJ abnormality and no dentition abnormality Thyromental Distance: > or= 3.5 Finger Breadths Mallampati Class: II Neck neck extension not limited Respiratory normal respiratory effort; no respiratory distress Auscultation: lungs clear to auscultation bilaterally Cardiovascular Rate/Rhythm: regular rate and regular rhythm Neurologic moves all extremities Psychiatric Orientation: alert and oriented x 3 Testing Laboratory Results 03/28/22 10:31 03/28/22 10:31
--- NOTE | 2022-03-28 14:56 | Post Operative Brief Note ---
PG Immediate Post Op with CF Date of Surgery March 28, 2022 Pre & Post Diagnosis Operation Date: 03/28/22 07:00 Pre-Op Diagnosis: INFECTION RIGHT BREAST, right chest wall abscess Post-Op Diagnosis: INFECTION RIGHT BREAST, right chest wall abscess I identified the patient and participated in the time-out.: Yes Procedure Operation Date: 03/28/22 07:00 Actual Procedures p Incision and Drainage Right Breast Abscess and Right Chest Wall Abscess(Right) - Bang Bucio DO Surgeon Bang Bucio DO Loading Dock Hand Carlos Acosta PA-C Estimated Blood Loss 10 Findings See Below Specimens Specimen Description: a) Right breast abscess fluid. Anesthesia Type General Complications none Disposition Disposition: Recovery Room
--- NOTE | 2022-03-28 15:00 | Operative Report ---
PG Post Operative Report Pre & Post Diagnosis Operation Date: 03/28/22 07:00 Pre-Op Diagnosis: Right breast abscess, right chest wall abscess Post-Op Diagnosis: Right breast abscess, right chest wall abscess I identified the patient and participated in the time-out.: Yes Procedure Operation Date: 03/28/22 07:00 Actual Procedures p Incision and Drainage Right Breast Abscess and Right Chest Wall Abscess(Right) - Bang Bucio DO Surgeon Bang Bucio DO Stunt Man Carlos Acosta PA-C Estimated Blood Loss 10 Findings Consistent with Post-Op Diagnosis Specimens Right breast abscess fluid for culture Drains None Anesthesia Type General Complications none Disposition Disposition: Recovery Room Indications 42-year-old female with right breast abscess and right chest wall abscess Description of Procedure The patient was brought to the OR and placed in the supine position. At this time she underwent General LMA anesthesia without issue. She was given appropriate pre-operative antibiotics. The right breast and right chest were prepped and draped in the usual sterile fashion. A timeout was called. The procedure was verified as Incision and drainage of right breast and right chest wall abscess. Surgical, anesthesia and nursing teams agreed and the procedure was begun. After injection of 0.25% Marcaine with epinephrine, an incision was made directly over the most fluctuant area of abscess just inferior to the right nipple using a #15 blade scalpel. Purulent fluid was encountered. Wide drainage was ensured. All loculations were broken up bluntly. At this time the incision was irrigated until clear. Hemostasis was achieved using electrocautery. Hemostasis was complete. The incision was packed with a wet to dry Kerlix. Sterile dressing was applied. We then turned our attention to the right chest wall abscess. Again after injection of quarter percent Marcaine with epinephrine incision was made over the most fluctuant area using #15 blade scalpel. Purulent fluid was encountered. Wide drainage was ensured. Incision was irrigated until clear. Hemostasis was achieved using electrocautery. Hemostasis was complete. At this time the incision was packed with a wet-to-dry Kerlix and sterile dressing was applied. The patient was awakened from anesthesia and taking to PACU having remained stable throughout the entire case. All needle and sponge counts correct x 2. Physician assistant professor of psychology was present scrubbed for entire case. He was essential in positioning, prepping and draping the patient, retraction exposure and placement of the dressings. I attest to the content of the Intraoperative Record and any orders documented therein. Any exceptions are noted below.
[2022-03-28] MEDS: fentaNYL citrate 100 MCG/2 ML VIAL IV PRN ×3 (15:30→17:05)
--- NOTE | 2022-03-28 16:41 | Anesthesiology Progress Note ---
Date of Service March 28, 2022 Anesthesia Post Procedure Vital Signs Vital Signs: Temp Pulse Pulse Pulse Resp BP BP 03/28/22 16:30 71 20 139/89 03/28/22 16:15 68 20 151/97 H 03/28/22 15:50 69 16 150/88 H 03/28/22 15:20 62 20 163/100 H 03/28/22 16:00 73 16 152/86 H 03/28/22 15:40 65 16 157/93 H 03/28/22 15:30 63 18 160/96 H 03/28/22 15:10 66 20 171/99 H 03/28/22 15:02 36.6 C 73 16 169/101 H 03/28/22 14:24 36.8 C 72 18 154/83 H 03/28/22 13:33 70 20 135/107 H 03/28/22 10:02 37.0 C 75 18 174/100 H Pulse Ox O2 Del Method O2 Flow Rate 03/28/22 16:30 96 Nasal Cannula 2 03/28/22 16:15 96 Nasal Cannula 2 03/28/22 15:50 95 Room Air 03/28/22 15:20 99 Oxymask 4 03/28/22 16:00 97 Nasal Cannula 2 03/28/22 15:40 95 Room Air 03/28/22 15:30 95 Room Air 03/28/22 15:10 99 Oxymask 6 03/28/22 15:02 99 Oxymask 6 03/28/22 14:24 96 Room Air 03/28/22 13:33 94 Room Air 03/28/22 10:02 95 Room Air Pain Intensity Right Breast: Pain Intensity: 8 Transfer of Care Handoff Completed per policy Notes Mental Status: alert / awake / arousable and participated in evaluation Patient Amnestic to Procedure: Yes Nausea / Vomiting: adequately controlled Pain: adequately controlled Airway Patency, RR, SpO2: stable & adequate BP & HR: stable & adequate Hydration State: stable & adequate Anesthetic Complications: no major complications apparent
[2022-03-28] MEDS ORDERED: GLUCOSE 10 TAB/TUBE PO PRN (17:41)
[2022-03-28] MEDS ORDERED: oxyCODONE HCL IR 5 MG TAB (IMMEDIATE RELEASE) PO PRN (17:41)
[2022-03-28] MEDS ORDERED: HYDROmorphone INJ 0.5 MG/0.5 ML SYR IV PRN (17:41)
[2022-03-28] MEDS ORDERED: CARBOHYDRATES FOR HYPOGLYCEMIA PO PRN (17:41)
[2022-03-28] MEDS ORDERED: SODIUM CHLORIDE 0.9% 1000ML 1,000 ML IV SCH (17:41)
[2022-03-28] MEDS ORDERED: ALBUTEROL HFA 8 GM INHALER INH SCH (17:41)
[2022-03-28] MEDS ORDERED: DEXTROSE 50% 50 ML SYRINGE IV PRN (17:41)
[2022-03-28] MEDS ORDERED: GLUCAGON FOR INJ 1 MG VIAL SQ PRN (17:41)
[2022-03-28] MEDS ORDERED: ALBUTEROL HFA 8 GM INHALER INH PRN (17:41)
[2022-03-28] MEDS ORDERED: PHARMACY GLYCEMIC MGMT CONSULT PRN (17:41)
[2022-03-28] MEDS ORDERED: GLUCOSE 40% GEL 15 GM TUBE PO PRN (17:41)
[2022-03-28] MEDS ORDERED: ACETAMINOPHEN 325 MG TAB PO PRN (17:41)
[2022-03-28] MEDS: oxyCODONE HCL IR 5 MG TAB (IMMEDIATE RELEASE) PO PRN ×2 (18:17→23:31)
[2022-03-28] MEDS: AMPICILLIN/SULBACTAM SOD 3,000 MG in 0.9 % SODIUM CHLORIDE 100 ML IV SCH ×2 (18:34→23:31)
[2022-03-28] MEDS: INSULIN ASPART PER UNIT SC SCH ×2 (19:02→21:07)
[2022-03-28] MEDS: ALBUTEROL HFA 8 GM INHALER INH SCH (20:34)
[2022-03-28] MEDS ORDERED: LANTUS PER UNIT CHARGE SQ SCH ×2 (21:00)
[2022-03-28] MEDS ORDERED: VENLAFAXINE HCL XR 37.5 MG CAPXR PO SCH (21:00)
[2022-03-29] MEDS: ALBUTEROL HFA 8 GM INHALER INH SCH ×2 (01:45→07:37)
[2022-03-29] MEDS: AMPICILLIN/SULBACTAM SOD 3,000 MG in 0.9 % SODIUM CHLORIDE 100 ML IV SCH (05:35)
[2022-03-29] MEDS: oxyCODONE HCL IR 5 MG TAB (IMMEDIATE RELEASE) PO PRN ×2 (05:36→10:43)
[2022-03-29] MEDS ORDERED: OXYBUTYNIN CHLORIDE XL 5 MG TABCR PO SCH (09:00)
[2022-03-29] MEDS: INSULIN ASPART PER UNIT SC SCH (10:10)
--- NOTE | 2022-03-29 10:16 | Surgery Progress Note ---
Date of Service March 29, 2022 Assessment & Plan (1) Abscess of right breast: Plan: POD 1 I&D right breast abscess and chest wall abscess packing changed plan for d/c later today on po abx f/u Thursday in clinic for packing change (2) Chest wall abscess: Admission and Anticipated Discharge Date Admission Date: March 28, 2022 Supervising Physician Co-Signing Physician Notes I personally saw and evaluated the patient Carlos Acosta PA-C and agree with the assessment and plan. 42-year-old female postoperative day 1 I&D right breast abscess and right chest wall abscess Packing changed at bedside, minimal purulence Leave packing in place until Thursday we will arrange for follow-up in the clinic for packing change at that time We will discharge her home with some p.o. pain medication and p.o. antibiotics Subjective less pain, no fevers or chills Physical Exam Chest (Breasts): Additional Comments: right breast wound erythema resolving, minimal induration right chest wound no erythema or induration Results & Data ([facility]) Vital Signs (Past 12 Hours) Vital Signs Temp Pulse Pulse Resp BP Pulse Ox O2 Del Method 03/29/22 07:30 36.7 C 73 16 135/75 92 Room Air 03/29/22 07:38 78 16 90 Room Air 03/29/22 04:39 36.8 C 71 18 175/80 H 96 Room Air PG Care Time/CCT Total # of Minutes Spent Total Time Spent with Patient: Total time spent is greater than 50% in coordination of care (as documented) at patient's floor/unit and/or counseling patient: Coding Level of Care Code None Diagnoses Abscess of right breast N61.1 Chest wall abscess L02.213
--- NOTE | 2022-03-29 12:12 | Discharge Summary ---
Date of Service March 29, 2022 Admission HPI Per Admitting Provider Is a 42-year-old female who presented to the ER with increased right breast and right lower chest pain. She states that she started having pain in the right breast starting on Thursday. This continued to increase in the areola and nipple started to become erythematous and extremely painful for which she came to the ER. She denies any fevers or chills. She denies any drainage from the area. She also has a small area on the right chest that is tender and draining some foul-smelling fluid. She has a history of diabetes for which she takes insulin. She is a smoker. Ultrasound of the right breast in the ER revealed a 5 cm abscess. Principal Diagnosis 1. Right breast abscess 2. Right chest wall abscess Discharge Exam Constitutional WD/WN, vitals as above Chest (Breasts) Additional Comments: right breast packing in place, minimal wound erythema and induration right chest wall packing in place, minimal wound erythema Discharge Data Allergies Allergy/AdvReac Type Severity Reaction Status Date / Time No Known Allergies Allergy Verified 02/20/22 08:42 Consultations 03/28/22 13:24 Consult General Surgery Stat Procedures Performed Operation Date: 03/28/22 07:00 Actual Procedures p Incision and Drainage Right Breast Abscess and Right Chest Wall Abscess(Right) - Bang Bucio, DO Ordered Studies 03/28/22 10:19 breast RT limited Stat Hospital Course (1) Abscess of right breast: 42-year-old female with right breast pain and fever present emergency department . Ultrasound showed 5 cm breast abscess. Secondary right chest wall abscess was noted on physical exam. She was taken the operating room that afternoon for drainage of these abscesses. Wounds were packed. She was transferred to surgical floor for overnight admission and continued IV antibiotics. On postoperative day 1 her wounds were significantly improved. These were repacked with half-inch packing. She was stable for discharge home on oral antibiotics. Packing to be removed in the office in 2 days. Total Time Total Time Spent Total Time Spent (In Minutes): 15 Discharge Plan Discharge Items Patient Disposition: Home - Self-Care Reason For Visit: breast abscess Discharge Diagnosis: Drainage of abscess Condition on Discharge: Good Activity: As commented below Bathing Comment: Keep bandage dry until seen on Thursday Driving/Machine Use: Resume 3 days after discharge Non-emergency contact: Surgeon Call non-emergency contact if: you have any medication questions, your pain is not controlled, you have a fever, your temperature is above 101.5 and your wound has increased redness Follow-up/Referrals: Mary Jane Huang MD [Primary Care Provider] - Bang Bucio, [Physician] - (Please call the office to have packing changed on Thursday) Diet: Regular Addtl Attending Provider Instructions: You can alternate taking Tylenol or ibuprofen between Oxycodone Pending Studies at Discharge: No Stand-Alone Forms: [facility], Work/School Release, Smoking Cessation Medications and DC Order Prescriptions: New oxycodone 5 mg tablet 5 - 10 mg PO Q4H MDD 6 tabs Qty: 15 0RF amoxicillin-pot clavulanate 875-125 mg tablet 1 tab PO BID PRN (Reason: breast abscess) 10 Days Qty: 20 0RF Continued albuterol sulfate 90 mcg/actuation HFA aerosol inhaler 2 puff INHALATION Q4 PRN (Reason: Shortness Of Breath Or Wheezing) Qty: 6.7 4RF ipratropium-albuterol 0.5 mg-3 mg(2.5 mg base)/3 mL solution for nebulization 3 ml inhalation QID PRN venlafaxine [Effexor XR] 37.5 mg capsule,extended release 24hr 37.5 mg PO HS Qty: 30 5RF oxybutynin chloride 10 mg tablet extended release 24hr 10 mg PO DAILY Qty: 30 2RF insulin glargine [Lantus U-100 Insulin] 100 unit/mL Solution 20 unit SUBCUT HS insulin lispro [Humalog U-100 Insulin] 100 unit/mL Solution 1 sliding scale dose SUBCUT USEASDIRECTD albuterol sulfate [Proventil HFA] 90 mcg/actuation HFA aerosol inhaler 2 inh inhalation Q6H Qty: 8.5 0RF Discharge Orders: Discharge Order (Routine); Ordered 03/29/22 Ordered By: Carlos Acosta Admission Data Admit Date/Time: 03/28/22 15:08 Attending Provider: Bang Bucio Admit Provider: Bang Bucio Primary Care Provider: Mary Jane Huang Other Providers: Bang Bucio Coding Level of Care Code D/C DAY MANAGEMENT <30 MINS Diagnoses Abscess of right breast N61.1
== END 2022-03-29 12:53 | disposition home or self-care (01) ==
LOC: ED 09:57 → OR 13:33 → 3W 13:33

== ENCOUNTER 2022-08-19 22:31 | Observation (INO) ==
--- NOTE | 2022-08-19 23:04 | Emergency Department Note ---
History of Present Illness General Chief complaint: Referred by Doctor Stated complaint: REF BY DOC DUE TO ELEVATED D-DIMER Time Seen by Provider: 08/19/22 22:41 History of Present Illness This is a 42-year-old female presenting to the emergency department due to abnormal outpatient labs. The patient initially came to this department on 08/13/2022 for evaluation, but left without being seen after waiting about 2 and half hours without being seen. The patient went to [facility] on 08/14/2022, where evidently her work-up was reportedly negative. She went to her primary care physician's office on 08/18/2022 for "ER Follow up". She is being evaluated for dyspnea could be multifactorial. The patient has a history of COPD and chronic tobacco use disorder. Unfortunately she also has history of pulmonary e mbolism, and is no longer on anticoagulants. Patient did have an outpatient D- dimer that was elevated, and patient was sent to the ER for further evaluation. Patient has not had fevers or chills. She has body aches in all extremities, which are not different than normal. No distinct swelling of her legs. Her weight has been stable over the past 6 months. She rates her discomfort a 4/10. Home Medications Medication Instructions Recorded Confirmed Type insulin glargine 100 unit/mL 15 unit subcut HS 11/19/21 08/20/22 History subcutaneous solution (Lantus U-100 Insulin) insulin lispro 100 unit/mL 1 sliding scale dose subcut PC 11/19/21 08/20/22 History subcutaneous solution (Humalog U-100 Insulin) ipratropium 0.5 mg-albuterol 3 mg 3 ml inhalation QID PRN Shortness 02/20/22 08/20/22 History (2.5 mg base)/3 mL nebulization Of Breath Or Wheezing soln venlafaxine 37.5 mg 37.5 mg PO HS #30 caps 02/20/22 08/20/22 Rx capsule,extended release 24 hr (Effexor XR) albuterol sulfate 90 mcg/actuation 2 inh inhalation Q6H PRN Shortness 08/20/22 08/20/22 History aerosol inhaler (Proventil HFA) Of Breath Or Wheezing apixaban 5 mg tablet 10 mg PO BID #70 tabs 08/20/22 Rx oxybutynin chloride 10 mg 10 mg PO HS 08/20/22 08/20/22 History tablet,extended release 24 hr Allergies Allergy/AdvReac Type Severity Reaction Status Date / Time No Known Allergies Allergy Verified 08/19/22 09:24 Past Med/Surg History Medical History Abdominal pain Anxiety Bronchitis Depression with anxiety Gastritis History of COPD History of venous thromboembolism Urinary bladder incontinence Surgical History History of incision and drainage (03/28/22) Incision and Drainage Right Breast Abscess and Right Chest Wall Abscess(Right) - Bang Bucio DO Family History Other No pertinent family history Social History Smoking Status: Current every day smoker Tobacco Type: Cigarettes Age Started Using Tobacco: 10; Cigarettes Per Day: 10; Second Hand Exposure: Yes; Do You Dip or Chew Tobacco: No; Hx Alcohol Use: Yes Alcohol type: beer Alcohol Intake Frequency: Monthly or Less Hx Substance Use: No Preferred Language: Gibralt[place] Communication Ability: Effective Visual Impairment: No Limitations Hearing Ability: Normal Stem Maker Required: No Beliefs That Will Affect Care: None marital status: Current Living Situation: Alone current occupational status: employed 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 How many Children do You have: 3 Feels Safe at Home: Yes Childhood Exposure to Second-Hand Smoke: Yes Diet: regular caffeine: Yes during the past year weight has: remained stable Dental Care, Regularly: No Physical Activity Frequency: 5-6 Times per Week Seatbelt Use: always Sunscreen Use: No Do you think of yourself as: straight/heterosexual Gender Identity: Female Assistive Devices: None Review of Systems A total of 10 systems reviewed and were otherwise negative Physical Exam Vital Signs Vital Signs - 24 hr 08/19/22 22:33 08/19/22 22:57 08/19/22 22:58 Temperature 36.2 C L Temperature Source Temporal Artery Scan Pulse Rate 80 54 L Pulse Rate [Finger] 66 Pulse Rate from SpO2 Sensor Pulse Rhythm [Finger] Regular Pulse Strength [Finger] Normal Respiratory Rate 18 20 Respiratory Effort / Characteristics Non-Labored Non-Labored Spontaneous Respiratory Depth Normal Normal Respiratory Pattern Regular Blood Pressure 163/97 H Blood Pressure [Left Arm] 117/97 Blood Pressure Mean 119 Blood Pressure Mean [Left Arm] 103 Pulse Oximetry 94 96 Oxygen Delivery Method Room Air Room Air Sepsis Recent Fever Within 48 Hours No Sepsis New/Unexplained Change in Mental Status No Sepsis Action Taken by Nursing No Action Required 08/19/22 22:57 08/20/22 00:00 Temperature Temperature Source Pulse Rate 64 57 L Pulse Rate [Finger] Pulse Rate from SpO2 Sensor 71 58 L Pulse Rhythm [Finger] Pulse Strength [Finger] Respiratory Rate 21 20 Respiratory Effort / Characteristics Respiratory Depth Respiratory Pattern Blood Pressure 117/97 116/91 Blood Pressure [Left Arm] Blood Pressure Mean 103 99 Blood Pressure Mean [Left Arm] Pulse Oximetry 96 97 Oxygen Delivery Method Room Air Room Air Sepsis Recent Fever Within 48 Hours Sepsis New/Unexplained Change in Mental Status Sepsis Action Taken by Nursing VITALS: Vitals are noted on the nurse's note and reviewed by myself. Vital signs stable. GENERAL: Well-developed, well-nourished, white female, who is in no acute distress and resting comfortably. Patient is cooperative with the examination. HEAD: Normocephalic atraumatic. NECK: Supple without nuchal rigidity. No lymphadenopathy. No thyromegaly. Cervical spine is nontender. HEART: Regular rate and rhythm without murmurs gallops or rubs. LUNGS: Clear to auscultation bilaterally without wheezes, rales or rhonchi. No retractions or accessory muscle use. ABDOMEN: Positive normal bowel sounds x 4. Soft, nontender, without masses or organomegaly. No guarding or rebound tenderness. MUSCULOSKELETAL: Full range of motion in all extremities. +Tenderness left calf with cord. Course Administered Medications Discontinued Medications Acetaminophen (Acetaminophen 500 Mg Tab) 1,000 mg PO NOW [facility] Stop: 08/20/22 09:46 Last Admin: 08/20/22 10:33 Dose: 1,000 mg Documented By: DESIRE Apixaban (Apixaban 5 Mg Tablet) 10 mg PO BID [facility] Stop: 08/26/22 21:01 Last Admin: 08/20/22 12:51 Dose: 10 mg Documented By: DESIRE Insulin Aspart (Insulin Aspart Per Unit Charge) 0 units SC ACHS ALEIDA Stop: 09/19/22 07:29 Last Admin: 08/20/22 17:04 Dose: 7 units Documented By: DESIRE Co-signed By: TERRI Admin: 08/20/22 12:58 Dose: 4 units Documented By: DESIRE Co-signed By: TERRI Admin: 08/20/22 07:53 Dose: 9 units Documented By: DESIRE Co-signed By: DANNY Ioversol (Optiray 320 500ml) 110 ml IV ONCE ONE Stop: 08/19/22 23:18 Last Admin: 08/19/22 23:18 Dose: 110 ml Documented By: CHRISTINE Melatonin (Melatonin 3 Mg Tab) 3 mg PO HS PRN PRN Reason: Sleep Stop: 09/19/22 02:53 Last Admin: 08/20/22 03:14 Dose: 3 mg Documented By: TEDDY Nicotine (Nicotine 14 Mg/24 Hr Patch) 14 mg TD QAM ALEIDA Stop: 09/19/22 13:29 Last Admin: 08/20/22 15:01 Dose: Not Given Documented By: DESIRE Medical Decision Making Differential Diagnosis Differential diagnosis includes, but is not limited to: Myocardial infarction, dysrhythmia, pericarditis, pneumothorax, aortic aneurysm/dissection, DVT/PE, anxiety, GERD, PUD, electrolyte imbalance, thyroid disorder, pneumonia, bronchitis, pancreatitis, and others Laboratory Data 08/19/22 23:00 08/20/22 02:38 Lab Results 08/19/22 08/19/22 08/19/22 Range/Units 23:00 23:00 23:00 WBC 11.94 H (4.8-10.8) K/ul RBC 4.57 (4.20-5.40) M/uL Hgb 14.5 (12.0-16.0) g/dl Hct 41.3 (37.0-47.0) % MCV 90.4 (80.0-100.0) fL MCH 31.7 (25.0-34.0) pg MCHC 35.1 (32.0-36.0) g/dL RDW Std Deviation 40.0 (36.4-46.3) fL RDW Coeff of Tabitha 12.2 (11.5-14.5) % Plt Count 281 (130-400) K/uL MPV 10.6 (9.4-12.4) fL Immature Gran % (Auto) 0.3 % Neut % (Auto) 50.6 % Lymph % (Auto) 41.5 % [place] % (Auto) 5.0 % Eos % (Auto) 1.8 % Baso % (Auto) 0.8 % Neut # (Auto) 6.03 (1.40-6.50) K/uL Lymph # (Auto) 4.96 H (1.2-3.4) K/uL [place] # (Auto) 0.60 H (0.11-0.59) K/uL Eos # (Auto) 0.22 (0-0.50) K/uL Baso # (Auto) 0.09 (0-0.2) K/uL Immature Gran # (Auto) 0.04 (0.01-0.20) K/uL PT 10.8 (9.0-12.0) Seconds INR 1.0 (0.9-1.1) APTT 25.7 (21.0-31.0) Seconds PTT Ratio 0.9 Sodium 135 L (136-145) mmol/L Potassium 3.7 (3.5-5.1) mmol/L Chloride 103 (98-107) mmol/L Carbon Dioxide 22 (21-32) mmol/L Anion Gap 10 (3-11) BUN 13 (6-23) mg/dl Creatinine 0.55 L (0.6-1.2) mg/dl Est Cr Clr Drug Dosing 155.9 ml/min Est GFR ( Amer) 135.0 ml/min Est GFR (Non-Af Amer) 116.5 ml/min BUN/Creatinine Ratio 23.6 H (10-20) Glucose 191 H (70-99(Fasting)) mg/dl POC Glucose (70-99) mg/dl Calcium 9.2 (8.6-10.3) mg/dl Total Bilirubin 0.3 (0.2-1.0) mg/dl AST 12 L (13-39) U/L ALT 13 (7-52) U/L Alkaline Phosphatase 78 (34-104) U/L Troponin I High Sens 4.1 (0-14) pg/ml B-Natriuretic Peptide (0-100) pg/ml Total Protein 7.3 (6.0-8.3) gm/dl Albumin 4.0 (3.4-5.0) gm/dl Globulin 3.3 (2.5-4.0) gm/dl Albumin/Globulin Ratio 1.2 (0.9-2) SARS-CoV-2, RNA, NAAT (NEGATIVE) 08/19/22 08/20/22 08/20/22 Range/Units 23:00 00:00 00:21 WBC (4.8-10.8) K/ul RBC (4.20-5.40) M/uL Hgb (12.0-16.0) g/dl Hct (37.0-47.0) % MCV (80.0-100.0) fL MCH (25.0-34.0) pg MCHC (32.0-36.0) g/dL RDW Std Deviation (36.4-46.3) fL RDW Coeff of Tabitha (11.5-14.5) % Plt Count (130-400) K/uL MPV (9.4-12.4) fL Immature Gran % (Auto) % Neut % (Auto) % Lymph % (Auto) % [place] % (Auto) % Eos % (Auto) % Baso % (Auto) % Neut # (Auto) (1.40-6.50) K/uL Lymph # (Auto) (1.2-3.4) K/uL [place] # (Auto) (0.11-0.59) K/uL Eos # (Auto) (0-0.50) K/uL Baso # (Auto) (0-0.2) K/uL Immature Gran # (Auto) (0.01-0.20) K/uL PT (9.0-12.0) Seconds INR (0.9-1.1) APTT (21.0-31.0) Seconds PTT Ratio Sodium (136-145) mmol/L Potassium (3.5-5.1) mmol/L Chloride (98-107) mmol/L Carbon Dioxide (21-32) mmol/L Anion Gap (3-11) BUN (6-23) mg/dl Creatinine (0.6-1.2) mg/dl Est Cr Clr Drug Dosing ml/min Est GFR ( Amer) ml/min Est GFR (Non-Af Amer) ml/min BUN/Creatinine Ratio (10-20) Glucose (70-99(Fasting)) mg/dl POC Glucose 179 H (70-99) mg/dl Calcium (8.6-10.3) mg/dl Total Bilirubin (0.2-1.0) mg/dl AST (13-39) U/L ALT (7-52) U/L Alkaline Phosphatase (34-104) U/L Troponin I High Sens (0-14) pg/ml B-Natriuretic Peptide 14 (0-100) pg/ml Total Protein (6.0-8.3) gm/dl Albumin (3.4-5.0) gm/dl Globulin (2.5-4.0) gm/dl Albumin/Globulin Ratio (0.9-2) SARS-CoV-2, RNA, NAAT NEGATIVE (NEGATIVE) Imaging Data Radiologist's Impression: Chest CTA 08/19/22 22:48 CR Exam(s): CTA CHEST IV Amt: 110ml Optiray 320 EXAM: CT Angiography Chest With Intravenous Contrast CLINICAL HISTORY: Reason for exam: Elevated dimer, hx of PE in past. TECHNIQUE: Axial computed tomographic angiography images of the chest with intravenous contrast. Automated exposure control was utilized for the study. A dose lowering technique was utilized adhering to the principles of ALARA. MIP reconstructed images were created and reviewed. COMPARISON: None. FINDINGS: Pulmonary arteries: Filling defect identified within the mid distal posterior basal segmental branches of the right lower lobe. Similar filling defect identified within the proximal segmental branches of the right middle lobe pulmonary artery (axial image 67 through 64, series 2). These findings are compatible with right-sided pulmonary emboli. Aorta: No acute findings. No thoracic aortic aneurysm. Lungs: Patchy consolidation within the right middle lobe. Remainder of the lung parenchyma is normal. Pleural space: Unremarkable. No significant effusion. No pneumothorax. Heart: The RV/LV ratio is 0.7 with no signs of right-sided cardiac strain. No significant pericardial effusion. Bones/joints: No acute fracture. No dislocation. Soft tissues: Unremarkable. Lymph nodes: Unremarkable. No enlarged lymph nodes. Other findings: Visualized upper abdominal structures unremarkable. Degenerative disease of the spine. IMPRESSION: 1. Right-sided pulmonary emboli involving the segments of the right middle lobe and right lower lobe with no signs of right-sided cardiac strain. 2. Patchy opacity within the right middle lobe with wide differential diagnosis including atelectasis, pneumonitis, small area of pulmonary infarct or less likely, pulmonary hemorrhage, given corresponding pulmonary emboli not excluded. Clinical correlation recommended. Communications: Call Doctor Other Electronically signed by: Kacy Michel MD 08/19/22 23:39 PM Venous Doppler Study 08/20/22 00:05 Exam(s): US VENOUS BILATERAL LOWER EXTREMITIES EXAM: US Duplex Bilateral Lower Extremities Veins CLINICAL HISTORY: Reason for exam: PE. TECHNIQUE: Real-time duplex ultrasound scan of the bilateral lower extremity veins integrating B-mode two-dimensional vascular structure, Doppler spectral analysis, color flow Doppler imaging and compression. COMPARISON: 01/15/2018. FINDINGS: Limitations: Exam is limited due to patient's large body habitus. Right deep veins: Unremarkable. No DVT in the right common femoral, femoral, proximal deep femoral or popliteal veins. The veins demonstrate normal color flow, are normally compressible, with normal phasic flow and/or augmentation response. Right superficial veins: Unremarkable. No thrombus in the visualized right great saphenous vein. Left deep veins: Unremarkable. No DVT in the left common femoral, proximal deep femoral or popliteal veins. The veins demonstrate normal color flow, are normally compressible, with normal phasic flow and/or augmentation response. There is partial color flow with internal echoes demonstrated within the distal left superficial femoral vein however there is normal compressibility. Left superficial veins: Unremarkable. No thrombus in the visualized left great saphenous vein. Soft tissues: No acute findings. No popliteal cyst. IMPRESSION: Right lower extremity: No deep venous thrombosis involving the right lower extremity. Left lower extremity: Partial color flow within the distal left superficial femoral vein otherwise normal compressibility demonstrated at this level and therefore, findings may indicate artifact versus sequela of scarring/mild irregularity related to old DVT seen at this level. Remainder of the left lower extremity exam is otherwise unremarkable with no signs of acute deep venous thrombosis seen. Electronically signed by: Kacy Michel MD 08/20/22 01:44 AM [facility] Narrative Physical exam and history were performed. Nursing notes, EMR, and Medication List were personally reviewed. No social concerns were identified as barriers to patients care. Patient appears to have dyspnea symptoms for the past several days. She does have a positive outpatient D-dimer. IV access was established and labs were obtained. Patient was sent to CT scan for imaging. An order was placed for continuous cardiac monitoring. The monitor shows a rate of 60 with normal sinus rhythm. Patient's blood work is as above and was reviewed. She does not have a significantly elevated white blood cell count, gross anemia, bandemia, or significant electrolyte imbalance. Transaminases are not diagnostic. Troponin x1 is negative. CT scan of the chest was performed and reviewed by myself and radiology. It hsu s appear to show right-sided pulmonary emboli. There is concern that there may be pulmonary infarct versus bleed in this area as well. On reevaluation the patient continues to appear well and vital signs are currently stable. Patient does not seem well for discharge. If the patient has a bleed in this area it would be difficult to anticoagulate her. Pulmonary infarct seems more likely. Case was discussed with the on-call hospitalist team who agreed to evaluate patient here in the ER. Please see their dictation for further patient course, plan, disposition. The chart was completed utilizing [employer] Speech Voice Recognition Software. Grammatical errors, random word insertions, pronoun errors, and incomplete sentences are an occasional consequence of this system due to software limit ations, ambient noise, and hardware issues. Any formal questions or concerns about the content, text, or information contained within the body of this dictation should be directly addressed to the provider for clarification. . Impression & Plan Acute pulmonary embolism Discharge Plan Visit Data Chief Complaint: Referred by Doctor Stated Complaint: REF BY DOC DUE TO ELEVATED D-DIMER ED Provider: Juan Pablo Chow ED Midlevel Provider: Mg Lorenzana Discharge Problem: Acute pulmonary embolism Patient Disposition: Admitted As Inpatient Discharge Instructions Interventions: ED Discharge Assessment Last Done: 08/20/22 02:21
[2022-08-19] MEDS ORDERED: OPTIRAY 320 500ml IV ONE (23:17)
[2022-08-19 23:23] LABS: Basophils # (auto) 0.09 K/uL (0-0.2); Basophils % (auto) 0.8 %; Eosinophils # (auto) 0.22 K/uL (0-0.50); Eosinophils % (auto) 1.8 %; Hematocrit (blood only) 41.3 % (37.0-47.0); Hemoglobin 14.5 g/dl (12.0-16.0); Immature Granulocytes # (auto) 0.04 K/uL (0.01-0.20); Immature Granulocytes % (auto) 0.3 %; Lymphocytes # (auto) 4.96 K/uL (1.2-3.4); Lymphocytes % (auto) 41.5 %; Mean Corpuscular Hemoglobin 31.7 pg (25.0-34.0); Mean Corpuscular Hgb Conc 35.1 g/dL (32.0-36.0); Mean Corpuscular Volume 90.4 fL (80.0-100.0); Mean Platelet Volume 10.6 fL (9.4-12.4); Neutrophils # (auto) 6.03 K/uL (1.40-6.50); Neutrophils % (auto) 50.6 %; Platelet Count 281 K/uL (130-400); RDW Coefficient of Variation 12.2 % (11.5-14.5); Red Blood Count 4.57 M/uL (4.20-5.40); White Blood Count 11.94 K/ul (4.8-10.8)
[2022-08-19 23:35] LABS: Albumin Globulin Ratio 1.2 (0.9-2); BUN Creatinine Ratio 23.6 (10-20); Bilirubin,Total 0.3 mg/dl (0.2-1.0); Calcium 9.2 mg/dl (8.6-10.3); Creatinine Clr Calc Pharmacy 155.9 ml/min; Est GFR (Non-African American) 116.5 ml/min; Globulin 3.3 gm/dl (2.5-4.0); Potassium 3.7 mmol/L (3.5-5.1); Total Protein 7.3 gm/dl (6.0-8.3)
--- NOTE | 2022-08-19 23:41 | CT Scan Report ---
Exam(s): CTA CHEST IV Amt: 110ml Optiray 320 EXAM: CT Angiography Chest With Intravenous Contrast CLINICAL HISTORY: Reason for exam: Elevated dimer, hx of PE in past. TECHNIQUE: Axial computed tomographic angiography images of the chest with intravenous contrast. Automated exposure control was utilized for the study. A dose lowering technique was utilized adhering to the principles of ALARA. MIP reconstructed images were created and reviewed. COMPARISON: None. FINDINGS: Pulmonary arteries: Filling defect identified within the mid distal posterior basal segmental branches of the right lower lobe. Similar filling defect identified within the proximal segmental branches of the right middle lobe pulmonary artery (axial image 67 through 64, series 2). These findings are compatible with right-sided pulmonary emboli. Aorta: No acute findings. No thoracic aortic aneurysm. Lungs: Patchy consolidation within the right middle lobe. Remainder of the lung parenchyma is normal. Pleural space: Unremarkable. No significant effusion. No pneumothorax. Heart: The RV/LV ratio is 0.7 with no signs of right-sided cardiac strain. No significant pericardial effusion. Bones/joints: No acute fracture. No dislocation. Soft tissues: Unremarkable. Lymph nodes: Unremarkable. No enlarged lymph nodes. Other findings: Visualized upper abdominal structures unremarkable. Degenerative disease of the spine. IMPRESSION: 1. Right-sided pulmonary emboli involving the segments of the right middle lobe and right lower lobe with no signs of right-sided cardiac strain. 2. Patchy opacity within the right middle lobe with wide differential diagnosis including atelectasis, pneumonitis, small area of pulmonary infarct or less likely, pulmonary hemorrhage, given corresponding pulmonary emboli not excluded. Clinical correlation recommended. Communications: Call Doctor Other Electronically signed by: Kacy Michel MD 08/19/22 23:39 PM
[2022-08-19 23:42] LABS: Troponin I High Sensitivity 4.1 pg/ml (0-14)
[2022-08-20 00:06] LABS: Partial Thromboplastin Ratio 0.9; Partial Thromboplastin Time 25.7 Seconds (21.0-31.0); Prothrombin Time 10.8 Seconds (9.0-12.0)
--- NOTE | 2022-08-20 01:45 | Ultrasound Report ---
Exam(s): US VENOUS BILATERAL LOWER EXTREMITIES EXAM: US Duplex Bilateral Lower Extremities Veins CLINICAL HISTORY: Reason for exam: PE. TECHNIQUE: Real-time duplex ultrasound scan of the bilateral lower extremity veins integrating B-mode two-dimensional vascular structure, Doppler spectral analysis, color flow Doppler imaging and compression. COMPARISON: 01/15/2018. FINDINGS: Limitations: Exam is limited due to patient's large body habitus. Right deep veins: Unremarkable. No DVT in the right common femoral, femoral, proximal deep femoral or popliteal veins. The veins demonstrate normal color flow, are normally compressible, with normal phasic flow and/or augmentation response. Right superficial veins: Unremarkable. No thrombus in the visualized right great saphenous vein. Left deep veins: Unremarkable. No DVT in the left common femoral, proximal deep femoral or popliteal veins. The veins demonstrate normal color flow, are normally compressible, with normal phasic flow and/or augmentation response. There is partial color flow with internal echoes demonstrated within the distal left superficial femoral vein however there is normal compressibility. Left superficial veins: Unremarkable. No thrombus in the visualized left great saphenous vein. Soft tissues: No acute findings. No popliteal cyst. IMPRESSION: Right lower extremity: No deep venous thrombosis involving the right lower extremity. Left lower extremity: Partial color flow within the distal left superficial femoral vein otherwise normal compressibility demonstrated at this level and therefore, findings may indicate artifact versus sequela of scarring/mild irregularity related to old DVT seen at this level. Remainder of the left lower extremity exam is otherwise unremarkable with no signs of acute deep venous thrombosis seen. Electronically signed by: Kacy Michel MD 08/20/22 01:44 AM
[2022-08-20] MEDS ORDERED: GLUCOSE 10 TAB/TUBE PO PRN (02:38)
[2022-08-20] MEDS ORDERED: ALBUT/IPRATROP 3MG/0.5MG NEB 3 ML VIAL INH PRN (02:38)
[2022-08-20] MEDS ORDERED: ACETAMINOPHEN 325 MG TAB PO PRN (02:38)
[2022-08-20] MEDS ORDERED: GLUCAGON FOR INJ 1 MG VIAL SQ PRN (02:38)
[2022-08-20] MEDS ORDERED: GLUCOSE 40% GEL 15 GM TUBE PO PRN (02:38)
[2022-08-20] MEDS ORDERED: ALBUTEROL HFA 8 GM INHALER INH PRN (02:38)
[2022-08-20] MEDS ORDERED: DEXTROSE 50% 50 ML SYRINGE IV PRN (02:38)
[2022-08-20] MEDS ORDERED: ONDANSETRON INJ 2 MG/ML 2 ML VIAL IV PRN (02:38)
[2022-08-20] MEDS ORDERED: CARBOHYDRATES FOR HYPOGLYCEMIA PO PRN (02:38)
[2022-08-20] MEDS ORDERED: MELATONIN 3 MG TAB PO PRN (02:54)
[2022-08-20 03:38] LABS: BUN Creatinine Ratio 21.4 (10-20); Calcium 8.9 mg/dl (8.6-10.3); Creatinine Clr Calc Pharmacy 167.3 ml/min; Est GFR (African American) 134.2 ml/min; Est GFR (Non-African American) 115.8 ml/min
--- NOTE | 2022-08-20 04:33 | History & Physical Report ---
Date of Service August 20, 2022 Assessment & Plan (1) Acute pulmonary embolism: (2) History of venous thromboembolism: (3) History of COPD: (4) Depression with anxiety: (5) Urinary bladder incontinence: (6) Diabetes mellitus type II, uncontrolled: (7) Anxiety: (8) Gastritis: Plan Acute pulmonary embolism right middle lobe and right lower lobe/questionable pulmonary infarct versus pulmonary hemorrhage right middle lobe- History of bilateral lower extremity DVT and PEs about 5 years ago Order hypercoagulable work-up Lower extremity venous Dopplers shows irregularity of the left lower extremity veins, and patient does have some tenderness there, but there is no definite DVT Due to question regarding possible pulmonary hemorrhage on CTA, and that there is only about 5 hours until vendette will come in, will defer anticoagulation until then. Order hypercoagulable work-up Asthma- Continue albuterol HFA as needed and DuoNebs as needed Diabetes mellitus- Continue glargine 15 units subcu at bedtime Placed on Accu-Cheks with NovoLog SSI Check hemoglobin A1c Urinary bladder spasms/urinary frequency- Continue oxybutynin Anxiety- Continue venlafaxine Tobacco use disorder- Cessation counseling Admission and Anticipated Discharge Date Admission Date: August 20, 2022 History of Present Illness Chief Complaint: The patient presents to the emergency department for evaluation of worsening shortness of breath and dyspnea on exertion above and beyond that what is usual for her COPD and chronic tobacco use Primary Care Provider: Mary Jane Huang MD The patient is a 42-year-old female with a past medical history including bilateral lower extremity DVT and PE about 5 years ago, chest wall abscess, abscess of right breast, urinary bladder incontinence, depression with anxiety, COPD, chronic tobacco use disorder, morbid obesity, COVID-19 infection, acute respiratory failure, diabetes mellitus type 2 uncontrolled, anxiety, kidney calculi, abdominal pain and gastritis. The patient has been assessed at an outside hospital on 08/14 for shortness of breath, and reportedly had a negative work-up. She had follow-up at her PCPs office on 08/18. Due to worsening symptoms of shortness of breath and dyspnea on exertion, she presented to the ED for assessment admitted in the. CTA PE protocol was significant for a right middle lobe and right lower lobe PE, with possible pulmonary infarct/pulmonary hemorrhage and right middle lobe, and patient was referred for evaluation for admission to hospitalist service. On questioning, she does report chronic bilateral leg pain. As noted she has did have bilateral lower extremity DVTs and PE about 5 years ago, and was only on anticoagulation for a brief interval time due to losing her insurance. Upon questioning, patient does report that she traveled to the [facility] about 1 week ago. Allergies Allergy/AdvReac Type Severity Reaction Status Date / Time No Known Allergies Allergy Verified 08/19/22 09:24 Home Medications Medication Instructions Recorded Confirmed Type insulin glargine 100 unit/mL 15 unit subcut HS 11/19/21 08/20/22 History subcutaneous solution (Lantus U-100 Insulin) insulin lispro 100 unit/mL 1 sliding scale dose subcut PC 11/19/21 08/20/22 History subcutaneous solution (Humalog U-100 Insulin) ipratropium 0.5 mg-albuterol 3 mg 3 ml inhalation QID PRN Shortness 02/20/22 08/20/22 History (2.5 mg base)/3 mL nebulization Of Breath Or Wheezing soln venlafaxine 37.5 mg 37.5 mg PO HS #30 caps 02/20/22 08/20/22 Rx capsule,extended release 24 hr (Effexor XR) albuterol sulfate 90 mcg/actuation 2 inh inhalation Q6H PRN Shortness 08/20/22 08/20/22 History aerosol inhaler (Proventil HFA) Of Breath Or Wheezing oxybutynin chloride 10 mg 10 mg PO HS 08/20/22 08/20/22 History tablet,extended release 24 hr Past Med/Surg History Medical History Abdominal pain Anxiety Bronchitis Depression with anxiety Gastritis History of COPD History of venous thromboembolism Urinary bladder incontinence Surgical History History of incision and drainage (03/28/22) Incision and Drainage Right Breast Abscess and Right Chest Wall Abscess(Right) - [place] Buc[place], Family History Other No pertinent family history Social History Smoking Status: Current every day smoker Tobacco Type: Cigarettes Age Started Using Tobacco: 10; Cigarettes Per Day: 10; Second Hand Exposure: Yes; Do You Dip or Chew Tobacco: No; Tobacco Cessation Education Requested by Patient: No Hx Alcohol Use: Yes Alcohol type: beer Alcohol Intake Frequency: Monthly or Less Hx Substance Use: No Preferred Language: Guyanese Communication Ability: Effective Visual Impairment: No Limitations Hearing Ability: Normal Histologic Aide Required: No Beliefs That Will Affect Care: None marital status: Current Living Situation: Alone current occupational status: employed 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 [employer] How many Children do You have: 3 Feels Safe at Home: Yes Safety Concerns: Feels Safe At This Time Childhood Exposure to Second-Hand Smoke: Yes Diet: regular caffeine: Yes during the past year weight has: remained stable Dental Care, Regularly: No Physical Activity Frequency: 5-6 Times per Week Seatbelt Use: always Sunscreen Use: No Do you think of yourself as: straight/heterosexual Gender Identity: Female Assistive Devices: None Review of Systems Review of Systems: The patient denies sore throat, fevers, chills, sweats, nausea, vomiting, diarrhea , constipation, abdominal pain, pelvic pain, blood in urine or stool, dysuria, urinary frequency or urgency, lightheadedness, dizziness, headache, memory loss, loss of consciousness, rash, abnormal bruising or bleeding, imbalance, focal or generalized weakness, numbness or tingling in arms or legs, generalized arthralgias or myalgias, neck pain, or night sweats. The review of systems is otherwise negative other than for that already noted above, and at least 10 systems have been reviewed. Physical Exam Physical Exam: The patient is awake, alert and oriented 3, well developed and well nourished, normocephalic and atraumatic, lying in bed and in no acute distress. HEENT--PERRL, EOMI, mucous membranes and oropharynx dry. Neck--supple. No JVD. No bruits. Thyroid normal, trachea midline, no adenopathy. Heart--normal S1 and S2. No murmurs, rubs or gallops. Lungs--few wheezes bilaterally. No respiratory distress, no accessory muscle use. Abdomen--normal bowel sounds and soft. Nontender. Nondistended, no hernias or masses, no organomegaly. Extremities--no cyanosis or clubbing. No edema. A few palpable cords left posterior knee and calf with mild tenderness Dermatologic--normal skin turgor, normal color, no abnormal lymph nodes, no rash. Neurologic--cranial nerves II through XII grossly intact. Rheumatologic--normal range of motion. Psychiatric--normal affect. Results & Data Results & Data Vital Signs (Past 12 Hours) Vital Signs Temp Pulse Pulse Resp BP BP Pulse Ox 08/20/22 02:49 67 08/20/22 02:56 08/20/22 02:56 36.4 C L 60 18 136/82 94 08/20/22 02:38 36.4 C L 60 18 136/82 94 08/20/22 02:38 08/20/22 02:21 62 17 128/74 98 08/20/22 01:30 60 121/77 96 08/20/22 00:00 57 L 20 116/91 97 08/19/22 22:57 64 21 117/97 96 08/19/22 22:58 54 L 08/19/22 22:57 66 20 117/97 96 08/19/22 22:33 36.2 C L 80 18 163/97 H 94 Pulse Ox O2 Del Method O2 Del Method 08/20/22 02:49 08/20/22 02:56 Room Air 08/20/22 02:56 Room Air 08/20/22 02:38 Room Air 08/20/22 02:38 94 Room Air 08/20/22 02:21 Room Air 08/20/22 01:30 Room Air 08/20/22 00:00 Room Air 08/19/22 22:57 Room Air 08/19/22 22:58 08/19/22 22:57 Room Air 08/19/22 22:33 Room Air Laboratory Results Laboratory Results WBC 11.94 K/ul (4.8-10.8) H 08/19/22 23:00 RBC 4.57 M/uL (4.20-5.40) 08/19/22 23:00 Hgb 14.5 g/dl (12.0-16.0) 08/19/22 23:00 Hct 41.3 % (37.0-47.0) 08/19/22 23:00 MCV 90.4 fL (80.0-100.0) 08/19/22 23:00 MCH 31.7 pg (25.0-34.0) 08/19/22 23:00 MCHC 35.1 g/dL (32.0-36.0) 08/19/22 23:00 RDW Std Deviation 40.0 fL (36.4-46.3) 08/19/22 23:00 RDW Coeff of Tabitha 12.2 % (11.5-14.5) 08/19/22 23:00 Plt Count 281 K/uL (130-400) 08/19/22 23:00 MPV 10.6 fL (9.4-12.4) 08/19/22 23:00 Immature Gran % (Auto) 0.3 % 08/19/22 23:00 Neut % (Auto) 50.6 % 08/19/22 23: Lymph % (Auto) 41.5 % 08/19/22 23: [place] % (Auto) 5.0 % 08/19/22 23:00 Eos % (Auto) 1.8 % 08/19/22 23:00 Baso % (Auto) 0.8 % 08/19/22 23:00 Neut # (Auto) 6.03 K/uL (1.40-6.50) 08/19/22 23:00 Lymph # (Auto) 4.96 K/uL (1.2-3.4) H 08/19/22 23:00 [place] # (Auto) 0.60 K/uL (0.11-0.59) H 08/19/22 23:00 Eos # (Auto) 0.22 K/uL (0-0.50) 08/19/22 23:00 Baso # (Auto) 0.09 K/uL (0-0.2) 08/19/22 23:00 Immature Gran # (Auto) 0.04 K/uL (0.01-0.20) 08/19/22 23:00 PT 10.8 Seconds (9.0-12.0) 08/19/22 23:00 INR 1.0 (0.9-1.1) 08/19/22 23:00 APTT 25.7 Seconds (21.0-31.0) 08/19/22 23:00 PTT Ratio 0.9 08/19/22 23:00 Sodium 135 mmol/L (136-145) L 08/20/22 02:38 Potassium 4.0 mmol/L (3.5-5.1) 08/20/22 02:38 Chloride 104 mmol/L (98-107) 08/20/22 02:38 Carbon Dioxide 23 mmol/L (21-32) 08/20/22 02:38 Anion Gap 8 (3-11) 08/20/22 02:38 BUN 12 mg/dl (6-23) 08/20/22 02:38 Creatinine 0.56 mg/dl (0.6-1.2) L 08/20/22 02:38 Est Cr Clr Drug Dosing 167.3 ml/min 08/20/22 02:38 Est GFR ( Amer) 134.2 ml/min 08/20/22 02:38 Est GFR (Non-Af Amer) 115.8 ml/min 08/20/22 02:38 BUN/Creatinine Ratio 21.4 (10-20) H 08/20/22 02:38 Glucose 168 mg/dl (70-99(Fasting)) H 08/20/22 02:38 POC Glucose 179 mg/dl (70-99) H 08/20/22 00:21 Calcium 8.9 mg/dl (8.6-10.3) 08/20/22 02:38 Total Bilirubin 0.3 mg/dl (0.2-1.0) 08/19/22 23:00 AST 12 U/L (13-39) L 08/19/22 23:00 ALT 13 U/L (7-52) 08/19/22 23:00 Alkaline Phosphatase 78 U/L (34-104) 08/19/22 23:00 Troponin I High Sens 4.1 pg/ml (0-14) 08/19/22 23:00 B-Natriuretic Peptide 14 pg/ml (0-100) 08/19/22 23:00 Total Protein 7.3 gm/dl (6.0-8.3) 08/19/22 23:00 Albumin 4.0 gm/dl (3.4-5.0) 08/19/22 23:00 Globulin 3.3 gm/dl (2.5-4.0) 08/19/22 23:00 Albumin/Globulin Ratio 1.2 (0.9-2) 08/19/22 23:00 SARS-CoV-2, RNA, NAAT NEGATIVE (NEGATIVE) 08/20/22 00:00 Impressions Chest CTA 08/19/22 22:48 CR Exam(s): CTA CHEST IV Amt: 110ml Optiray 320 EXAM: CT Angiography Chest With Intravenous Contrast CLINICAL HISTORY: Reason for exam: Elevated dimer, hx of PE in past. TECHNIQUE: Axial computed tomographic angiography images of the chest with intravenous contrast. Automated exposure control was utilized for the study. A dose lowering technique was utilized adhering to the principles of ALARA. MIP reconstructed images were created and reviewed. COMPARISON: None. FINDINGS: Pulmonary arteries: Filling defect identified within the mid distal posterior basal segmental branches of the right lower lobe. Similar filling defect identified within the proximal segmental branches of the right middle lobe pulmonary artery (axial image 67 through 64, series 2). These findings are compatible with right-sided pulmonary emboli. Aorta: No acute findings. No thoracic aortic aneurysm. Lungs: Patchy consolidation within the right middle lobe. Remainder of the lung parenchyma is normal. Pleural space: Unremarkable. No significant effusion. No pneumothorax. Heart: The RV/LV ratio is 0.7 with no signs of right-sided cardiac strain. No significant pericardial effusion. Bones/joints: No acute fracture. No dislocation. Soft tissues: Unremarkable. Lymph nodes: Unremarkable. No enlarged lymph nodes. Other findings: Visualized upper abdominal structures unremarkable. Degenerative disease of the spine. IMPRESSION: 1. Right-sided pulmonary emboli involving the segments of the right middle lobe and right lower lobe with no signs of right-sided cardiac strain. 2. Patchy opacity within the right middle lobe with wide differential diagnosis including atelectasis, pneumonitis, small area of pulmonary infarct or less likely, pulmonary hemorrhage, given corresponding pulmonary emboli not excluded. Clinical correlation recommended. Communications: Call Doctor Other Electronically signed by: Kacy Michel MD 08/19/22 23:39 PM Venous Doppler Study 08/20/22 00:05 Exam(s): US VENOUS BILATERAL LOWER EXTREMITIES EXAM: US Duplex Bilateral Lower Extremities Veins CLINICAL HISTORY: Reason for exam: PE. TECHNIQUE: Real-time duplex ultrasound scan of the bilateral lower extremity veins integrating B-mode two-dimensional vascular structure, Doppler spectral analysis, color flow Doppler imaging and compression. COMPARISON: 01/15/2018. FINDINGS: Limitations: Exam is limited due to patient's large body habitus. Right deep veins: Unremarkable. No DVT in the right common femoral, femoral, proximal deep femoral or popliteal veins. The veins demonstrate normal color flow, are normally compressible, with normal phasic flow and/or augmentation response. Right superficial veins: Unremarkable. No thrombus in the visualized right great saphenous vein. Left deep veins: Unremarkable. No DVT in the left common femoral, proximal deep femoral or popliteal veins. The veins demonstrate normal color flow, are normally compressible, with normal phasic flow and/or augmentation response. There is partial color flow with internal echoes demonstrated within the distal left superficial femoral vein however there is normal compressibility. Left superficial veins: Unremarkable. No thrombus in the visualized left great saphenous vein. Soft tissues: No acute findings. No popliteal cyst. IMPRESSION: Right lower extremity: No deep venous thrombosis involving the right lower extremity. Left lower extremity: Partial color flow within the distal left superficial femoral vein otherwise normal compressibility demonstrated at this level and therefore, findings may indicate artifact versus sequela of scarring/mild irregularity related to old DVT seen at this level. Remainder of the left lower extremity exam is otherwise unremarkable with no signs of acute deep venous thrombosis seen. Electronically signed by: Kacy Michel MD 08/20/22 01:44 AM Code Status & VTE Plan Code Status Full code VTE Prophylaxis Plan VTE Prophylaxis will be ordered: Yes PG Care Time/CCT Total # of Minutes Spent Total Time Spent with Patient: Total time spent is greater than 50% in coordination of care (as documented) at patient's floor/unit and/or counseling patient: Coding Level of Care Code 54624 INT INP/OBS CARE 3/75MIN Diagnoses Acute pulmonary embolism I26.99 History of venous thromboembolism Z86.718 History of COPD Z87.09 Depression with anxiety F41.8 Urinary bladder incontinence R32 Diabetes mellitus type II, uncontrolled E11.65 Anxiety F41.9 Gastritis K29.70
--- NOTE | 2022-08-20 07:45 | Hospitalist Progress Note ---
Date of Service August 20, 2022 Assessment & Plan (1) Acute pulmonary embolism: Plan: 42F with PMH of prior DVT, DM2, urinary frequency, COPD, depression with anxiety, tobacco use d/o, who presented with worsening chest wall pain and was admitted for acute right middle lobe, right lower lobe, possible right lower lobe hemorrhage. Pulmonary embolism -Discovered on CTA following elevated d-dimer in ED. -Coagulation initially held on admission due to CTA read of pulmonary hemorrhage. Pulmonary consulted for evaluation. -Multiple provocative factors: recent long distance trip to [place], everyday smoker (2 packs/day). * Apixaban 10 mg bid x7 days. Then 5mg bid x3 months. Continue x3-6 months. DM2 -Chronic. Takes 15 units Lantus qHS. * Continue home regimen. Urinary bladder incontinence * Continue oxybutynin 10 mg qHS. Anxiety/depression * Continue venlafaxine. Tobacco use d/o -Smokes 2 packs/day. * Nicotine patch. Code: Full code Dispo: Med-Surg telemetry FEN/GI: Carb consistent DVT Prophylaxis: Apixaban 10 mg bid PT/OT: No Consults: None Case Management: No (2) Diabetes mellitus type II, uncontrolled: (3) Asthma: (4) Urinary bladder incontinence: (5) Anxiety: (6) Tobacco use disorder: Admission and Anticipated Discharge Date Admission Date: August 20, 2022 Supervising Physician Co-Signing Physician Notes I personally examined the patient and verified all magallanes points of history and exam, discussed case, and agree with decision making with Dr Love Feels better and would like to go home. Pulmonary input appreciated. Discussed anticoagulation, chronic management, etc. Patient expressed good understanding. Vitals noted, in general she is awake and alert pleasant no distress. HEENT normocephalic atraumatic mucous membranes moist. Breathing unlabored no accessory muscle use good effort. Skin shows no rashes no pallor or icterus. Neuro without focal deficits. Recurrent VTEPEs, small pulmonary infarctvenous stasis related to morbid obesity with BMI 43.5 contributing, but certainly there is suspicion of hypercoagulability underlying given that she has had recurrent clotting events. Eliquis 10 mg twice daily for the next 7 days, 5 mg twice daily for probably at least 3 months, and then would recommend chronic prophylactic dosing thereafter. Patient expresses good understanding. Safe/stable for home, outpatient follow- up. Subjective Patient awake in bed on arrival. Reports residual though improved chest wall pain. Denies LE pain, swelling or cramping. Denies GIRON, dizziness, SOB at rest, nausea, abdominal pain. Review of Systems Review of Systems: All systems reviewed & are unremarkable except as noted in HPI & below Physical Exam Physical Exam: General: No acute distress HEENT: PERRLA. Normal conjunctiva, anicteric sclera. Oropharynx normal. Respiratory: Normal respiratory effort, CTABL. Cardiovascular: RRR without murmurs, gallops, or rubs. No edema. GI: Soft abdomen with normal bowel sounds heard on auscultation. Nontender x4 quadrants Neuro: Alert and oriented x3. Results & Data Results & Data Vital Signs (Past 12 Hours) Vital Signs Temp Pulse Pulse Resp BP BP Pulse Ox 08/20/22 02:49 67 08/20/22 02:56 08/20/22 02:56 36.4 C L 60 18 136/82 94 08/20/22 02:38 36.4 C L 60 18 136/82 94 08/20/22 02:38 08/20/22 02:21 62 17 128/74 98 08/20/22 01:30 60 121/77 96 08/20/22 00:00 57 L 20 116/91 97 08/19/22 22:57 64 21 117/97 96 08/19/22 22:58 54 L 08/19/22 22:57 66 20 117/97 96 08/19/22 22:33 36.2 C L 80 18 163/97 H 94 Pulse Ox O2 Del Method O2 Del Method 08/20/22 02:49 08/20/22 02:56 Room Air 08/20/22 02:56 Room Air 08/20/22 02:38 Room Air 08/20/22 02:38 94 Room Air 08/20/22 02:21 Room Air 08/20/22 01:30 Room Air 08/20/22 00:00 Room Air 08/19/22 22:57 Room Air 08/19/22 22:58 08/19/22 22:57 Room Air 08/19/22 22:33 Room Air
[2022-08-20] MEDS: INSULIN ASPART PER UNIT CHARGE SC SCH ×3 (07:53→17:04)
[2022-08-20 08:23] LABS: Prothrombin Time 10.7 Seconds (9.0-12.0)
[2022-08-20 08:24] LABS: BUN Creatinine Ratio 22.6 (10-20); Creatinine Clr Calc Pharmacy 148.6 ml/min; Est GFR (African American) 129.8 ml/min
[2022-08-20 08:26] LABS: Calcium 8.5 mg/dl (8.6-10.3)
[2022-08-20 08:27] LABS: Albumin Level 3.6 gm/dl (3.4-5.0); Phosphorus 4.2 mg/dl (2.5-4.9)
[2022-08-20] MEDS ORDERED: ACETAMINOPHEN 500 MG TAB PO STA (09:45)
[2022-08-20 09:56] LABS: Estimated Average Glucose 263 mg/dl; Hemoglobin A1C 10.8 % (4.5-5.6)
[2022-08-20] MEDS ORDERED: APIXABAN 5 MG TABLET PO SCH (11:15)
[2022-08-20 11:33] LABS: Calcium 8.8 mg/dl (8.6-10.3); Potassium 4.2 mmol/L (3.5-5.1)
[2022-08-20 11:39] LABS: BUN Creatinine Ratio 23.6 (10-20); Creatinine Clr Calc Pharmacy 167.5 ml/min; Est GFR (Non-African American) 116.5 ml/min
--- NOTE | 2022-08-20 12:34 | Pulmonary Consultation ---
Date of Consultation August 20, 2022 Assessment & Plan (1) Morbidly obese: (2) Acute pulmonary embolism: (3) Dyspnea: (4) Smoker: Plan CT chest 08/19/2022 personally reviewed: Minimal atelectasis on the periphery of the right middle lobe lateral segment, dependent atelectasis of the left lower lobe minimal No significant mediastinal lymphadenopathy Right middle and right lower lobe pulmonary emboli with no evidence of right heart strain -- Acute pulmonary emboli Saturating well on room air sPESI 0, 1.1 risk of mortality Doppler bilateral lower extremity negative for acute DVT Chronic changes in the left superficial femoral vein --Active smoker Greater than [id number] smoking history Importance of quitting explained to the patient PFT as an outpatient --Obesity with probable DEONNA Recommend outpatient polysomnography --History of factor V Leiden deficiency and mother --History of lung cancer in paternal uncles who were smokers Plan: Continue with anticoagulation lifelong Hypercoagulable work-up if not already done Patient has some atelectasis in the right middle lobe as well as left lower lobe. I doubt it to be pulmonary hemorrhage. Patient has history of factor V Leiden deficiency in mother. On asking whether she has ever been checked for it she is not sure Would recommend to check factor V Leiden if it is positive recommend warfarin for anticoagulation. Outpatient polysomnography Please note the above document was generated using voice recognition software. It may contain grammatical, syntax or spelling errors.Any formal questions or concerns about the content, text or information contained within the body of this dictation should be directly addressed to the provider for clarification. History of Present Illness Attending Physician: Benji Rincon DO History of Present Illness 42-year-old female presented to the hospital with complaints of shortness of breath on exertion Past medical history: DVT and PE approximately 5 years ago, depression/anxiety, COPD, diabetes, gastritis Patient was found to have pulmonary embolism, pulmonary consulted for same At the time of examination patient was saturating 97% on room air In no acute distress Denies any issues with her breathing No chest pain, no shortness of breath No hemoptysis No fever or chills Asking why did she stop taking the blood thinner before. She stated that she ran out of her insurance and was not able to afford it. Denies any recent trauma. No recent travel history. No headache, no blurry vision Social history: Greater than [id number] smoking history, currently smoking 2 packs a day History of factor V Leiden deficiency and mother History of lung cancer in paternal uncles who were smokers Allergies Allergy/AdvReac Type Severity Reaction Status Date / Time No Known Allergies Allergy Verified 08/19/22 09:24 Home Medications Medication Instructions Recorded Confirmed Type insulin glargine 100 unit/mL 15 unit subcut HS 11/19/21 08/20/22 History subcutaneous solution (Lantus U-100 Insulin) insulin lispro 100 unit/mL 1 sliding scale dose subcut PC 11/19/21 08/20/22 History subcutaneous solution (Humalog U-100 Insulin) ipratropium 0.5 mg-albuterol 3 mg 3 ml inhalation QID PRN Shortness 02/20/22 08/20/22 History (2.5 mg base)/3 mL nebulization Of Breath Or Wheezing soln venlafaxine 37.5 mg 37.5 mg PO HS #30 caps 02/20/22 08/20/22 Rx capsule,extended release 24 hr (Effexor XR) albuterol sulfate 90 mcg/actuation 2 inh inhalation Q6H PRN Shortness 08/20/22 08/20/22 History aerosol inhaler (Proventil HFA) Of Breath Or Wheezing oxybutynin chloride 10 mg 10 mg PO HS 08/20/22 08/20/22 History tablet,extended release 24 hr Patient History Medical History Abdominal pain Anxiety Bronchitis Depression with anxiety Gastritis History of COPD History of venous thromboembolism Urinary bladder incontinence Surgical History History of incision and drainage (03/28/22) Incision and Drainage Right Breast Abscess and Right Chest Wall Abscess(Right) - Bang Bucio, Family History Other No pertinent family history Social History Smoking Status: Current every day smoker Tobacco Type: Cigarettes Age Started Using Tobacco: 10; Cigarettes Per Day: 10; Second Hand Exposure: Yes; Do You Dip or Chew Tobacco: No; Tobacco Cessation Education Requested by Patient: No Hx Alcohol Use: Yes Alcohol type: beer Alcohol Intake Frequency: Monthly or Less Hx Substance Use: No Preferred Language: Luxembourgish Communication Ability: Effective Visual Impairment: No Limitations Hearing Ability: Normal 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 Beliefs That Will Affect Care: None marital status: Current Living Situation: Alone current occupational status: employed 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 [employer] How many Children do You have: 3 Feels Safe at Home: Yes Safety Concerns: Feels Safe At This Time Childhood Exposure to Second-Hand Smoke: Yes Diet: regular caffeine: Yes during the past year weight has: remained stable Dental Care, Regularly: No Physical Activity Frequency: 5-6 Times per Week Seatbelt Use: always Sunscreen Use: No Do you think of yourself as: straight/heterosexual Gender Identity: Female Assistive Devices: None Review of Systems Review of Systems: All systems reviewed & are unremarkable except as noted in HPI & below Physical Exam Physical Exam: Constitutional: No acute distress HEENT: EOMI, PERRLA Respiratory system: Good air entry bilaterally, no wheeze, no rhonchi, no crackles CVS: S1-S2 positive, no murmurs or gallops Abdomen: Soft, nontender, nondistended, positive bowel sounds x4, obese Extremities: +2 pulses bilaterally radialis/ dorsalis pedis, no cyanosis, no edema Neuro: Awake alert oriented x3 Psych: Normal mood and affect G/U: No Garcia Skin: no rashes, warm and dry Lymphatic: no cervical or axillary lymphadenopathy Results & Data Results & Data Vital Signs (Past 12 Hours) Vital Signs Temp Pulse Pulse Resp BP BP Pulse Ox 08/20/22 11:14 36.9 C 57 L 20 117/79 90 08/20/22 07:00 68 08/20/22 07:53 36.9 C 63 20 116/76 94 08/20/22 02:49 67 08/20/22 02:56 08/20/22 02:56 36.4 C L 60 18 136/82 94 08/20/22 02:38 36.4 C L 60 18 136/82 94 08/20/22 02:38 08/20/22 02:21 62 17 128/74 98 08/20/22 01:30 60 121/77 96 Pulse Ox O2 Del Method O2 Del Method 08/20/22 11:14 Room Air 08/20/22 07:00 08/20/22 07:53 Room Air 08/20/22 02:49 08/20/22 02:56 Room Air 08/20/22 02:56 Room Air 08/20/22 02:38 Room Air 08/20/22 02:38 94 Room Air 08/20/22 02:21 Room Air 08/20/22 01:30 Room Air Laboratory Results 08/19/22 23:00 08/20/22 10:29 PG Care Time/CCT Total # of Minutes Spent Total Time Spent with Patient: Total time spent is greater than 50% in coordination of care (as documented) at patient's floor/unit and/or counseling patient: Coding Level of Care Code 38722 INT INP/OBS CARE 3/75MIN Diagnoses Morbidly obese E66.01 Acute pulmonary embolism I26.99 Dyspnea R06.00 Smoker F17.200
[2022-08-20] MEDS ORDERED: NICOTINE 14 MG/24 HR PATCH TD SCH (13:30)
[2022-08-20 15:10] LABS: Calcium 9.1 mg/dl (8.6-10.3); Potassium 4.4 mmol/L (3.5-5.1)
[2022-08-20 15:15] LABS: BUN Creatinine Ratio 17.3 (10-20); Creatinine Clr Calc Pharmacy 113.7 ml/min; Est GFR (African American) 104.6 ml/min; Est GFR (Non-African American) 90.2 ml/min
--- NOTE | 2022-08-20 17:08 | Billing Data ---
Date of Service August 20, 2022 Coding Level of Care Code 24022 IN/OBS DISCH 30 MIN/LESS
--- NOTE | 2022-08-20 20:46 | Discharge Summary ---
Date of Service August 20, 2022 Admission HPI Per Admitting Provider The patient is a 42-year-old female with a past medical history including bilateral lower extremity DVT and PE about 5 years ago, chest wall abscess, abscess of right breast, urinary bladder incontinence, depression with anxiety, COPD, chronic tobacco use disorder, morbid obesity, COVID-19 infection, acute respiratory failure, diabetes mellitus type 2 uncontrolled, anxiety, kidney calculi, abdominal pain and gastritis. The patient has been assessed at an outside hospital on 08/14 for shortness of breath, and reportedly had a negative work-up. She had follow-up at her PCPs office on 08/18. Due to worsening symptoms of shortness of breath and dyspnea on exertion, she presented to the ED for assessment admitted in the. CTA PE protocol was significant for a right middle lobe and right lower lobe PE, with possible pulmonary infarct/pulmonary hemorrhage and right middle lobe, and patient was referred for evaluation for admission to hospitalist service. On questioning, she does report chronic bilateral leg pain. As noted she has did have bilateral lower extremity DVTs and PE about 5 years ago, and was only on anticoagulation for a brief interval time due to losing her insurance. Upon questioning, patient does report that she traveled to the [facility] about 1 week ago. Admission Exam Per Admitting Provider The patient is awake, alert and oriented 3, well developed and well nourished, normocephalic and atraumatic, lying in bed and in no acute distress. HEENT--PERRL, EOMI, mucous membranes and oropharynx dry. Neck--supple. No JVD. No bruits. Thyroid normal, trachea midline, no adenopathy. Heart--normal S1 and S2. No murmurs, rubs or gallops. Lungs--few wheezes bilaterally. No respiratory distress, no accessory muscle use. Abdomen--normal bowel sounds and soft. Nontender. Nondistended, no hernias or masses, no organomegaly. Extremities--no cyanosis or clubbing. No edema. A few palpable cords left posterior knee and calf with mild tenderness Dermatologic--normal skin turgor, normal color, no abnormal lymph nodes, no rash. Neurologic--cranial nerves II through XII grossly intact. Rheumatologic--normal range of motion. Psychiatric--normal affect. Principal Diagnosis Right sided pulmonary embolism Discharge Exam General: No acute distress HEENT: PERRLA. Normal conjunctiva, anicteric sclera. Oropharynx normal. Respiratory: Normal respiratory effort, CTABL. Cardiovascular: RRR without murmurs, gallops, or rubs. No pedal edema. GI: Soft abdomen with normal bowel sounds heard on auscultation. Nontender x4 quadrants Neuro: Alert and oriented x3. Discharge Data Allergies Allergy/AdvReac Type Severity Reaction Status Date / Time No Known Allergies Allergy Verified 08/19/22 09:24 Consultations 08/20/22 00:07 ED Decision to Admit Stat 08/20/22 04:31 Consult Pulmonology Routine Ordered Studies 08/19/22 22:48 CT angio chest PE protocol Stat 08/20/22 00:05 US venous duplex leg [US venous doppler LE BI] Stat Hospital Course (1) Acute pulmonary embolism: 42F with PMH of prior DVT, DM2, urinary frequency, COPD, depression with anxiety, tobacco use d/o, who presented with worsening chest wall pain and was admitted for acute right middle lobe, right lower lobe, possible right lower lobe hemorrhage. Pulmonary embolism -Discovered on CTA following elevated d-dimer in ED. -Coagulation initially held on admission due to CTA read of pulmonary hemorrhage. Pulmonary consulted for evaluation. -Multiple provocative factors: recent long distance trip to [place], everyday smoker (2 packs/day). * Apixaban 10 mg bid x7 days. Then 5mg bid x3 months. DM2 -Chronic. Takes 15 units Lantus qHS. * Continue home regimen. Urinary bladder incontinence * Continue oxybutynin 10 mg qHS. Anxiety/depression * Continue venlafaxine. Tobacco use d/o -Smokes 2 packs/day. * Nicotine patch. (2) Diabetes mellitus type II, uncontrolled: (3) Asthma: (4) Urinary bladder incontinence: (5) Anxiety: (6) Tobacco use disorder: Total Time Total Time Spent Total Time Spent (In Minutes): Please see attending attestation. Discharge Plan Discharge Items Patient Disposition: Home - Self-Care Reason For Visit: PE Discharge Diagnosis: Pulmonary embolism Activity: Per Instructions section Non-emergency contact: Primary Care Provider Call non-emergency contact if: you have any medication questions, your symptoms worsen and your pain is not controlled Follow-up/Referrals: Mary Jane Huang MD [Primary Care Provider] - Diet: Regular Addtl Attending Provider Instructions: Dear Keturah, You came to the hospital due to worsening chest wall pain and shortness of breath on exertion. We evaluated you and discovered that your symptoms were caused by a condition known as a pulmonary embolism (blood clot of the right lung). We admitted you to the hospital to ensure that you were stable and did not have clots elsewhere, which you did not, and gave you medicines to dissolve the clots. Therefore, we feel that you are ready to be safely discharged home. Medications * We are sending you home on a medication called apixaban, or Eliquis 10 mg. Please take Eliquis 10 mg twice a day for 1 week. Then take Eliquis 5 mg twice a day for 3 months. * We sent an order for a month's worth to your pharmacy. For the rest, please contact your PCP to prescribe it. If the cost at the pharmacy is too expensive, please ask your PCP for a prescription as well. Do not go without taking it. * Please take the medications as instructed. If you have any questions or concerns about the medications or side effects, please contact your PCP. You should also schedule an appointment with your primary care physician within 2 weeks following your discharge date. It is important you do so in order to keep them updated on your healthcare needs. It has been our pleasure to care for you at [facility]. If you have any questions or concerns about your stay, please contact us at [phone]. Pending Studies at Discharge: No Stand-Alone Forms: My [facility], Smoking Cessation Medications and DC Order Prescriptions: New apixaban 5 mg Tablet 10 mg PO BID Qty: 70 0RF Continued ipratropium-albuterol 0.5 mg-3 mg(2.5 mg base)/3 mL solution for nebulization 3 ml inhalation QID PRN (Reason: Shortness Of Breath Or Wheezing) venlafaxine [Effexor XR] 37.5 mg capsule,extended release 24hr 37.5 mg PO HS Qty: 30 5RF oxybutynin chloride 10 mg tablet extended release 24hr 10 mg PO HS albuterol sulfate [Proventil HFA] 90 mcg/actuation HFA aerosol inhaler 2 inh inhalation Q6H PRN (Reason: Shortness Of Breath Or Wheezing) insulin glargine [Lantus U-100 Insulin] 100 unit/mL Solution 15 unit SUBCUT HS insulin lispro [Humalog U-100 Insulin] 100 unit/mL Solution 1 sliding scale dose SUBCUT PC Discharge Orders: Discharge Order (Routine); Ordered 08/20/22 Ordered By: Dolores Love Admission Data Admit Date/Time: 08/20/22 01:20 Attending Provider: Benji Rincon Admit Provider: Glen Mckeon Primary Care Provider: Mary Jane Huang Other Providers: Glen Mckeon ; Marjan Mckeon Other Interventions: Discharge Summary Assessment (RN) Last Done: 08/20/22 17:07 Supervising Physician Co-Signing Physician Notes I personally examined the patient and verified all magallanes points of history and exam, discussed case, and agree with decision making with Dr Love Feels better and would like to go home. Pulmonary input appreciated. Discussed anticoagulation, chronic management, etc. Patient expressed good understanding. Vitals noted, in general she is awake and alert pleasant no distress. HEENT normocephalic atraumatic mucous membranes moist. Breathing unlabored no accessory muscle use good effort. Skin shows no rashes no pallor or icterus. Neuro without focal deficits. Recurrent VTEPEs, small pulmonary infarctvenous stasis related to morbid obesity with BMI 43.5 contributing, but certainly there is suspicion of hypercoagulability underlying given that she has had recurrent clotting events. Eliquis 10 mg twice daily for the next 7 days, 5 mg twice daily for probably at least 3 months, and then would recommend chronic prophylactic dosing thereafter. Patient expresses good understanding. Safe/stable for home, outpatient follow- up. Resident Activity Tracking Resident Involvement: Resident Care Provided Care Provided: Adult Hospital Medicine
[2022-08-20] MEDS ORDERED: OXYBUTYNIN CHLORIDE XL 5 MG TABCR PO SCH (21:00)
[2022-08-20] MEDS ORDERED: VENLAFAXINE HCL XR 37.5 MG CAPXR PO SCH (21:00)
[2022-08-20] MEDS ORDERED: LANTUS PER UNIT CHARGE SQ SCH (21:00)
--- NOTE | 2022-08-20 21:46 | XCELERA ---
[id number]
--- NOTE | 2022-08-20 23:26 | Electrocardiogram Report ---
Test Reason : Blood Pressure : / mmHG Vent. Rate : 071 BPM Atrial Rate : 071 BPM P-R Int : 160 ms QRS Dur : 084 ms QT Int : 418 ms P-R-T Axes : 055 011 025 degrees QTc Int : 454 ms Normal sinus rhythm with sinus arrhythmia Low voltage QRS Borderline ECG When compared with ECG of 13-AUG-2022 17:02, No significant change was found Confirmed by Tej Spring ([id number]) on 08/20/2022 11:25:47 PM Referred By: Mary Jane Huang Confirmed By:Tej Spring
[2022-08-24 20:03] LABS: Fungitell (1-3)-B-D-Glucan <31 pg/mL
[2022-08-25 21:12] LABS: Factor 5 Mutation NEGATIVE
[2022-08-26 11:51] LABS: Anti Cardiolipin Ab IgG <2.0 GPL-U/mL; Anti Cardiolipin Ab IgM <2.0 MPL-U/mL; Anti-Thrombin III Activity 126 % normal (80-135); B2 Glycoprotein IgG <2.0 U/mL (<20.0); B2 Glycoprotein IgM <2.0 U/mL (<20.0); PTT LA Screen 33 sec (<=40); Protein S Functional(Activity) 105 % normal (60-140)
== END 2022-08-20 17:45 | disposition home or self-care (01) | DRG 176 ==
LOC: ED 22:31 → INTOOBSV 08-20 01:20 → SUATTDRO 08-20 01:20 → 2W 08-20 01:20